=== PATIENT | female | born 1940 | race Caucasian/White ===

== ENCOUNTER → 2023-08-20 06:21 | Outpatient (REF) | payer MEDICARE, OTHER, SELFPAY | LOC: MRI 06:21 | PROVIDERS: ATTENDING PHYSICIAN Physician Assistant Surgical; FAMILY PHYSICIAN Family Medicine | DX: M25.551 Pain in right hip (principal); M79.604 Pain in right leg | CPT/HCPCS: 73718; 73721 ==

== ENCOUNTER → 2023-08-24 08:42 | Outpatient (REF) | payer MEDICARE, OTHER, SELFPAY | LOC: RAD 08:42 | PROVIDERS: ATTENDING PHYSICIAN Internal Medicine; FAMILY PHYSICIAN Family Medicine | DX: I73.9 Peripheral vascular disease, unspecified (principal) | CPT/HCPCS: 93922; 93925 ==

== ENCOUNTER 2023-08-31 07:43 | Emergency (ER) | payer MEDICARE, OTHER, SELFPAY ==
[2023-08-31] VITALS (10 sets, daily range): BP systolic 118–166; BP diastolic 51–98; PULSE 67; O2SAT 93; BMI 31.4
[2023-08-31] MEDS: ZOFRAN 4 MG IV (08:42)
[2023-08-31] MEDS: DILAUDID 0.5 MG IV ×2 (08:43→11:42)
[2023-08-31 08:57] LABS: % Basophils 0.5 % (0-2); % Eosinophils 1.4 % (0-6); % Immature Granulocytes 0.5 % (0-0.5); % Lymphocytes 22.1 % (20.5-51.1); % Monocytes 7.3 % (1.7-9.3); % Neutrophils 68.2 % (42.2-75.2); Absolute Basophils 0.1 10^3/uL (0-0.2); Absolute Eosinophils 0.1 10^3/uL (0-0.7); Absolute Immature Granulocytes 0.1 10^3/uL (0-0.05); Absolute Lymphocytes 2.2 10^3/uL (1.2-3.4); Absolute Monocytes 0.7 10^3/uL (0.1-0.6); Absolute Neutrophils 6.9 10^3/uL (1.4-6.5); Hematocrit 42.9 % (37.0-47.0); Hemoglobin 14.5 g/dL (12.0-16.0); Mean Corp Hgb Conc. 33.8 g/dL (33.0-37.0); Mean Corpuscular Hgb 29.6 pg (27.0-31.0); Mean Corpuscular Volume 87.6 fL (81.0-99.0); Mean Platelet Volume 10.2 fL (7.4-10.4); Nucleated Red Blood Cells % 0 %; Platelet Count 231 10^3/uL (130-400); Red Cell Dist. Width 13.7 % (11.5-14.5); White Blood Cell Count 10.1 10^3/uL (4.8-10.8)
[2023-08-31 09:14] LABS: Erythrocyte Sed Rate 2 mm/hour (0-20)
[2023-08-31 09:26] LABS: ALT (SGPT) 16 U/L (0-35); AST (SGOT) 20 U/L (14-36); Albumin 3.5 g/dl (3.5-5.0); Alkaline Phosphatase 68 U/L (38-126); Blood Urea Nitrogen 24 mg/dl (7-17); Calcium 9.8 mg/dl (8.4-10.2); Carbon Dioxide 25 mmol/L (22-30); Chloride 101 mmol/L (98-107); Estimated Creatinine Clearance 29 ml/min; Glucose 210 mg/dl (70-99); Potassium 3.9 mmol/L (3.5-5.1); Sodium 133 mmol/L (135-145); Total Bilirubin 0.8 mg/dl (0.2-1.3); Total Protein 5.9 g/dl (6.3-8.2); eGFR 34.58
[2023-08-31 11:16] LABS: Urine Albumin Negative (Neg - Trace); Urine Bilirubin Negative (Negative); Urine Character Clear (Clear); Urine Color Yellow; Urine Glucose Trace (Negative); Urine Ketone Trace (Negative); Urine Leukocyte 1+ (Negative); Urine Nitrite Negative (Negative); Urine Occult Blood Negative (Negative); Urine Urobilinogen Negative (Neg - 1+)
[2023-08-31 11:27] LABS: Urine Red Blood Cell 0-2 /HPF (0-2); Urine White Cell 0-2 /HPF (0-5)
[2023-08-31] MEDS: TORADOL 15 MG IV (11:38)
--- NOTE | 2023-08-31 14:26 | ED.GENMED ---
History of Present Illness
General
Chief Complaint: Back Pain
Source: patient and records
Exam Limitations: none
Time Seen by Provider: 08/31/23 07:51
Nursing documentation reviewed up to this point in time: agreed with
Travel History
Have you had any contact with someone who has COVID-19?: No
Do you have any symptoms of coronavirus? Fever > 100 degrees, chills, cough, shortness of breath, sore throat, loss of taste or smell, muscle aches, or headache?: No
History of Present Illness
History of Present Illness:
Patient is a 83-year-old female presents to the emergency department complaining of right hip and leg pain has been chronic but worse over the past 2 to 3 days and today had difficulty weightbearing on the right lower extremity. Patient denies any
recent illnesses or injuries. Patient denies numbness or paresthesias. Patient states she has pain around the back also. Patient had a recent MRI of the hip and upper extremity which did show significant tear of the gluteus minimus on the right
but otherwise was unremarkable. Patient had mild tendinitis. That was on August 20. Patient her left hip replaced in the past.
Past History
Past History
ED Past Medical History: Arrthythmia, HTN, Hypercholesterolemia, NIDDM, Hypothyroidism and Other (Rheumatic Heart Disease, temporal arteritis, diabetes, aortic stenosis, ocular myasthenia gravis)
ED Past Surgical History: Cardiac, Gynecological (Tubal ligation) and Tonsilectomy
Social History
Tobacco: Non-smoker
Alcohol: Occasional
Drug: None
Personal:
Living: with family
Employment: Retired
Family History
Family History: Other (Reviewed and non-contributory)
Review of Systems
Review of Systems
All Other Systems: ROS reviewed and negative except as documented in HPI and ROS
Constitutional: Reports no symptoms
ABD/GI: Reports no symptoms
: Reports no symptoms
Musculoskeletal: Reports joint pain and back pain
Skin: Reports no symptoms
Neurological: Reports no symptoms
Hematologic/Lymphatic: Reports no symptoms
Phy Exam
Physical Exam
Physical Exam:
Physical Exam
General: moderate. Distress, alert and appropriate, well nourished, well hydrated
HENT: Normocephalic, supple with no lymphadenopathy, no thyromegaly
Eyes: Clear sclera, conjuctiva without injection
Heart: Regular rhythm and rate. No S3, S4. No murmur.
Lungs: No respiratory distress, no stridor, lung sounds clear and equal bilaterally
Abdomen: Soft, nontender, no organomegaly, BS good
Neuro: Alert and oriented x 3, CN II - XII intact, no motor focality, no cerebellar dysfunction, sensory intact
Skin: no rash
Psychiatric: well kept. interactive and cooperative
Extremities: No edema, cyanosis. Tenderness along the diffuse right hip including abductors and abductors and posteriorly. Good and equal peripheral pulses.
Musculoskeletal: As stated above. No lumbar spine tenderness.
Course
Orders/Labs/Results
Orders:
Orders
08/31/23 08:29
HYDROmorphone [Dilaudid] 0.5 mg IV NOW STA
Ondansetron Injectable [Zofran] 4 mg IV NOW STA
08/31/23 08:47
Complete Blood Count/With Diff Urgent
Comprehensive Metabolic Panel Urgent
Sed Rate [Erythrocyte Sed Rate] Urgent
08/31/23 10:55
Physical Therapy Consult [Pt Eval And Treat] Urgent
Activity Level: Ambulate
08/31/23 11:09
Urinalysis Reflex To Culture Urgent
Date Specimen was Collected: 08/31/23
Time Specimen was Collected: 11:04
Urine Microscopic Reflex Cult Urgent
Urine Culture Urgent
IMAN Source: U
Specimen Description:
Date Specimen was Collected: 08/31/23
Time Specimen was Collected: 11:04
08/31/23 11:32
HYDROmorphone [Dilaudid] 0.5 mg IV NOW STA
Ketorolac [Toradol] 15 mg IV NOW STA
Abnormal Lab Results
08/31/23 08/31/23
08:47 11:09
Abs Immat Gran (auto) 0.1 H 10^3/uL
(0-0.05)
Absolute Neuts (auto) 6.9 H 10^3/uL
(1.4-6.5)
Absolute Monos (auto) 0.7 H 10^3/uL
(0.1-0.6)
Sodium 133 L mmol/L
(135-145)
BUN 24 H mg/dl
(7-17)
Creatinine 1.5 H mg/dL
(0.6-1.0)
Glucose 210 H mg/dl
(70-99)
Total Protein 5.9 L g/dl
(6.3-8.2)
Urine Ketones Trace A
(Negative)
Leukocyte Esterase Rfl 1+ A
(Negative)
Urine Glucose Trace A
(Negative)
08/31/23 08:47
08/31/23 08:47
Vital Signs
Initial and Last Documented VS:
Initial Vital Signs
Temp Pulse Resp BP Pulse Ox
98.2 F 81 16 166/98 98
08/31/23 07:45 08/31/23 07:45 08/31/23 07:45 08/31/23 07:45 08/31/23 07:45
Last Documented Vital Signs
Temp Pulse Resp BP Pulse Ox
98.2 F 81 16 144/78 92
08/31/23 07:45 08/31/23 07:45 08/31/23 07:45 08/31/23 12:18 08/31/23 12:06
*Radiology
Radiology exam reviewed: other (na)
*Pulse Oximetry
Patient hypoxic: no
*EKG
Interpreted by ED Provider?: NA
*Front Desk Agent Interpretation
Rate: Front Desk Agent- N/A
*Critical Care Note
Total Time (30-74mins, 75-104mins- exclusive of procedures): Not Applicable
Update Note
Update Note:
Discussed with patient's orthopedist. Had physical therapy evaluate the patient patient has good range of motion and strength. Patient has no signs of any hip pathology with range of motion and movement. Initially it felt that patient was having
adductor issues. Does not appear to be secondary to her gluteus minimus issues. Treat the patient with pain medication. Refer the patient to orthopedics. Will try short course of the anti-inflammatories but patient has some renal insufficiency
as well as diabetes. Patient cannot have steroids at this time. Patient will be discharged and referred to orthopedics and physical therapy.
ED Attending Note
-
Portions of this chart may have been created with voice recognition software.� Occasional wrong word or��sound alike� substitutions may have occurred due to the inherent limitations of voice recognition software.
Discharge Plan
Departure
Patient Disposition: Home (Routine Discharge)
Date of Disposition: 08/31/23
Time of Disposition: 14:42
Patient with high blood pressure during this ER visit?: Yes
Condition: Fair
Covid-19: Not Applicable
Discharge Problem:
Hip pain, right, Adductor tendinitis of right hip, Right hip tendinitis
Instructions: Hip Pain (DC), Tendinopathy (DC), BLOOD PRESSURE
Prescriptions:
New
oxycodone 5 mg tablet
5 mg PO Q4H PRN (Reason: Pain) Qty: 20 0RF
ketorolac 10 mg tablet
10 mg PO QID PRN (Reason: pain) 5 Days Qty: 20 0RF
No Action
albuterol sulfate 2.5 MG/3 ML solution for nebulization
2.5 mg inhalation R Q4HPRN PRN (Reason: sob)
Prolia 60 MG/ML syringe
60 mg SC [id number]
rosuvastatin 5 mg tablet
10 mg PO HS
Levemir U-100 Insulin 100 unit/mL Solution
3 unit SC HS
Patient Comments:
also adjusts doses based on blood sugar
Trulicity 0.75 mg/0.5 mL pen injector
0.75 mg SC WEEKLY
Patient Comments:
Mondays
insulin aspart U-100 [Novolog FlexPen U-100 Insulin] 300 UNITS/3 ML insulin pen
0 units SC AC
aspirin 81 mg Tablet,Delayed Release (Dr/Ec)
81 mg PO DAILY
magnesium oxide 500 MG tablet
500 mg PO QPM Qty: 30 0RF
cholecalciferol (vitamin D3) 2,000 UNITS tablet
2,000 unit PO DAILY Qty: 30 0RF
Tocilizumab
80 mg SC .EVERY OTHER WK Qty: 0 0RF
polyethylene glycol 3350 [Miralax] 17 gram Powder In Packet
17 g PO DAILY
Colace 50 mg Capsule
50 mg PO HS
lidocaine [Aspercreme (lidocaine)] 1 PATCH adhesive patch,medicated
2 patch topical DAILY PRN (Reason: Pain)
gabapentin 400 MG capsule
300 mg PO BID
levothyroxine 75 MCG tablet
75 mcg PO DAILY
prednisone 1 MG tablet
5 mg PO DAILY
furosemide 20 MG tablet
20 mg PO DAILY PRN (Reason: swelling)
metoprolol succinate 12.5 MG tablet extended release 24 hr
25 mg PO HS
cyanocobalamin (vitamin B-12) [Vitamin B-12] 1,000 mcg Tablet
1,000 mcg PO DAILY
cyclobenzaprine [Flexeril] 10 mg Tablet
10 mg PO HS PRN (Reason: pain)
amlodipine 2.5 mg tablet
2.5 mg PO DAILY Qty: 30 0RF
acetaminophen [Tylenol Extra Strength] 500 MG tablet
1,000 mg PO TID@0700,1300,2000 PRN (Reason: pain) Qty: 100 0RF
albuterol sulfate 1 PUFF HFA aerosol inhaler
2 puff inhalation R Q4HPRN PRN (Reason: sob) Qty: 1 0RF
High Potency Probiotic 1 CAP capsule
2 cap PO DAILY Qty: 60 0RF
omeprazole 40 MG capsule,delayed release(DR/EC)
40 mg PO DAILY Qty: 30 0RF
Referrals:
Russ Manzo Jr., DO [Family Provider] - Follow up in 5-7 days
Seymour Bermudez MD [Active] - Call in 1-3 days for appt
Activity Restrictions/Additional Instructions:
Once pain has settled down somewhat follow with physical therapy.
Interventions
Interventions:
*Risk Screen - Suicide Last Done: 08/31/23 07:45
*General Assessment Last Done: 08/31/23 07:54
*Neglect/Abuse Screening Last Done: 08/31/23 07:54
ED- Fall Risk Assessment Last Done: 08/31/23 08:16
*ED COVID-19 Vaccine History Last Done: 08/31/23 07:45
ED-Musculoskeletal Assessment Last Done: 08/31/23 07:54
== END 2023-08-31 15:12 | disposition home or self-care (01) ==
LOC: EMR 07:43
PROVIDERS: EMERGENCY PHYSICIAN Emergency Medicine; FAMILY PHYSICIAN Family Medicine
DX: M25.551 Pain in right hip (principal); M76.9 Unspecified enthesopathy, lower limb, excluding foot; I10 Essential (primary) hypertension; N28.9 Disorder of kidney and ureter, unspecified; E11.9 Type 2 diabetes mellitus without complications
CPT/HCPCS: 99284; 96374; 96375 ×2; 96376; 80053; 81003; 81015; 85025; 85652; 87086

== ENCOUNTER 2023-09-05 08:52 | Inpatient (IN) | payer MEDICARE, OTHER, SELFPAY ==
[2023-09-01 16:36] VITALS: BP 125/58
[2023-09-01 18:07] VITALS: BMI 33.5
--- NOTE | 2023-09-01 19:42 | ED.GENMED ---
History of Present Illness
General
Chief Complaint: Back Pain
Source: patient
Exam Limitations: none
Time Seen by Provider: 09/01/23 19:22
Nursing documentation reviewed up to this point in time: agreed with
Travel History
Have you had any contact with someone who has COVID-19?: No
Do you have any symptoms of coronavirus? Fever > 100 degrees, chills, cough, shortness of breath, sore throat, loss of taste or smell, muscle aches, or headache?: No
History of Present Illness
History of Present Illness:
83-year-old female presents to the emergency department complaining of low back pain, and right leg pain to her knee.
Past History
Past History
ED Past Medical History: Arrthythmia, HTN, Hypercholesterolemia, NIDDM, Hypothyroidism and Other (Rheumatic Heart Disease, temporal arteritis, diabetes, aortic stenosis, ocular myasthenia gravis)
ED Past Surgical History: Cardiac, Gynecological (Tubal ligation) and Tonsilectomy
Social History
Tobacco: Non-smoker
Alcohol: Occasional
Drug: None
Personal:
Living: with family
Employment: Retired
Family History
Family History: Other (Reviewed and non-contributory)
Review of Systems
Review of Systems
Allergies reviewed?: Yes
All Other Systems: Not applicable
Constitutional: Reports no symptoms
EENT: Reports no symptoms
Respiratory: Reports no symptoms
Cardiac: Reports no symptoms
ABD/GI: Reports no symptoms
: Reports no symptoms
Musculoskeletal: Reports back pain and other (Right thigh pain)
Skin: Reports no symptoms
Neurological: Reports no symptoms
Endocrine: Reports no symptoms
Hematologic/Lymphatic: Reports no symptoms
Psychiatric: Reports no symptoms
Phy Exam
Physical Exam
Physical Exam:
Physical Exam
General: appears uncomfortable, afebrile
Neck: supple. no meningeal signs. normal posterior pharynx
Heart: s1/s2 regular rate and rhythm, no murmur. equal radial
pulses.
HEENT: Pupils equal round reactive to light, EOMI
Lungs: no acute respiratory distress. clear bilaterally
Abdomen: normal bowel sounds. not tender. no CVAT
Neuro: alert and oriented. no focal neurological deficits cranial nerves II through XII intact
Skin: no rash
Psychiatric: well kept. interactive and cooperative
Extremities: no edema. no calf tenderness. negative homans. good distal pulses, ;unable to ambulate due to pain
Course
Orders/Labs/Results
Orders:
Orders
09/01/23 19:38
IV Insert/Care/Rem.- Treatment PRN
US Periph Venous LOWER Ext RT Urgent
Comment:
Reason For Exam: RLE pain past several days
09/01/23 19:41
HYDROmorphone [Dilaudid] 0.5 mg IV NOW STA
Ondansetron Injectable [Zofran] 4 mg IV NOW STA
09/01/23 20:12
Complete Blood Count/With Diff Urgent
Comprehensive Metabolic Panel Urgent
09/01/23 22:37
Admit/Transfer Patient As Directed
Co-Sign Provider:
Level of Care: Observation services
Assign to:: Medical/Surgical
Physician / Group: Davi
Diagnosis: RLE Pain / Ambulatory Dysfunction
09/01/23 22:41
Code Status As Directed
Resuscitation Status: Full Code
Abnormal Lab Results
09/01/23
20:12
WBC 12.8 H 10^3/uL
(4.8-10.8)
Abs Immat Gran (auto) 0.1 H 10^3/uL
(0-0.05)
Absolute Neuts (auto) 10.8 H 10^3/uL
(1.4-6.5)
Absolute Lymphs (auto) 1.1 L 10^3/uL
(1.2-3.4)
Absolute Monos (auto) 0.7 H 10^3/uL
(0.1-0.6)
Neutrophils % 84.5 H %
(42.2-75.2)
Lymphocytes % 8.6 L %
(20.5-51.1)
Sodium 134 L mmol/L
(135-145)
BUN 33 H mg/dl
(7-17)
Creatinine 1.7 H mg/dL
(0.6-1.0)
Glucose 216 H mg/dl
(70-99)
Total Protein 6.0 L g/dl
(6.3-8.2)
09/01/23 20:12
09/01/23 20:12
Vital Signs
Initial and Last Documented VS:
Initial Vital Signs
Temp Pulse Resp BP Pulse Ox
98.5 F 78 18 125/58 98
09/01/23 16:36 09/01/23 16:36 09/01/23 16:36 09/01/23 16:36 09/01/23 16:36
Last Documented Vital Signs
Temp Pulse Resp BP Pulse Ox
98.5 F 78 18 125/58 98
09/01/23 16:36 09/01/23 16:36 09/01/23 16:36 09/01/23 16:36 09/01/23 16:36
MDM/Problems Addressed
Differential Diagnosis Includes:
Cauda equina, sciatica, DVT
MDM/Problems Addressed:
83-year-old female with amatory dysfunction, right-sided sciatica, chronic renal insufficiency, tear of right gluteus medius. Patient is unsafe to go home due to ambulatory dysfunction. Admit to hospitalist.
Chronic conditions affecting care: Neurological disorder and Kidney disease
Acute Exacerbation and/or Progression of Chronic Illness: Neurological disorder and Kidney disease
*Radiology
Radiology exam reviewed: radiology read reviewed (Ultrasound right lower extremity no DVT, MRI right lower extremity and right hip show right gluteus medius tear, small right knee effusion)
*Pulse Oximetry
Patient hypoxic: no
*EKG
Interpreted by ED Provider?: NA
*Senior Game Designer Interpretation
Rate: Senior Game Designer- N/A
*Critical Care Note
Total Time (30-74mins, 75-104mins- exclusive of procedures): Not Applicable
Data Reviewed
Review of Other/Old Records Reveals: Radiology Studies (MRI right lower extremity gluteus medius tear)
Source: previous radiology exam
Patient Management
Social determinants of health affecting care: Living situation and Strong social support
Discussion with other providers: Hospitalist
Escalation/DeEscalation of care consider admission/obs:
Admit indicated
ED Attending Note
-
Portions of this chart may have been created with voice recognition software.� Occasional wrong word or��sound alike� substitutions may have occurred due to the inherent limitations of voice recognition software.
Discharge Plan
Departure
Patient Disposition: Admit
Date of Disposition: 09/01/23
Time of Disposition: 21:53
Admit to: Med/Surg
Presentation/result/management discussed w/ accepting MD/DO: Hospitalist
Patient with high blood pressure during this ER visit?: Yes
Condition: Fair
Discharge Problem:
Sciatica, Ambulatory dysfunction, Tear of right gluteus medius tendon, Chronic kidney disease (CKD), Diabetic neuropathy
Interventions
Interventions:
*Risk Screen - Suicide Last Done: 09/01/23 16:36
*General Assessment Last Done: 09/01/23 16:36
*Neglect/Abuse Screening Last Done: 09/01/23 16:36
ED- Fall Risk Assessment Last Done: 09/01/23 18:07
*ED COVID-19 Vaccine History Last Done: 09/01/23 16:36
ED-Musculoskeletal Assessment Last Done: 09/01/23 18:07
[2023-09-01] MEDS: ZOFRAN 4 MG IV (20:07)
[2023-09-01] MEDS: DILAUDID 0.5 MG IV (20:07)
[2023-09-01 20:21] LABS: % Basophils 0.5 % (0-2); % Eosinophils 0.4 % (0-6); % Immature Granulocytes 0.5 % (0-0.5); % Lymphocytes 8.6 % (20.5-51.1); % Monocytes 5.5 % (1.7-9.3); % Neutrophils 84.5 % (42.2-75.2); Absolute Basophils 0.1 10^3/uL (0-0.2); Absolute Eosinophils 0.1 10^3/uL (0-0.7); Absolute Immature Granulocytes 0.1 10^3/uL (0-0.05); Absolute Lymphocytes 1.1 10^3/uL (1.2-3.4); Absolute Monocytes 0.7 10^3/uL (0.1-0.6); Absolute Neutrophils 10.8 10^3/uL (1.4-6.5); Hematocrit 43.2 % (37.0-47.0); Hemoglobin 14.4 g/dL (12.0-16.0); Mean Corp Hgb Conc. 33.3 g/dL (33.0-37.0); Mean Corpuscular Hgb 29.8 pg (27.0-31.0); Mean Corpuscular Volume 89.4 fL (81.0-99.0); Mean Platelet Volume 9.2 fL (7.4-10.4); Nucleated Red Blood Cells % 0 %; Platelet Count 239 10^3/uL (130-400); Red Blood Cell Count 4.83 10^6/uL (4.20-5.40); Red Cell Dist. Width 13.7 % (11.5-14.5); White Blood Cell Count 12.8 10^3/uL (4.8-10.8)
[2023-09-01 20:41] LABS: ALT (SGPT) 21 U/L (0-35); AST (SGOT) 30 U/L (14-36); Albumin 3.7 g/dl (3.5-5.0); Alkaline Phosphatase 58 U/L (38-126); Blood Urea Nitrogen 33 mg/dl (7-17); Calcium 10.1 mg/dl (8.4-10.2); Carbon Dioxide 26 mmol/L (22-30); Chloride 100 mmol/L (98-107); Estimated Creatinine Clearance 24 ml/min; Glucose 216 mg/dl (70-99); Potassium 4.3 mmol/L (3.5-5.1); Sodium 134 mmol/L (135-145); Total Bilirubin 0.6 mg/dl (0.2-1.3); eGFR 29.76
--- NOTE | 2023-09-01 22:44 | HPS.HSE ---
Family Physician
-
Family Physician: Russ Manzo Jr.
Chief Complaint
-
RLE Pain, Ambulatory Dysfunction
History of Present Illness
Patient is an 83y F with PMH significant for GCA, DDD and DM with neuropathy who presents to ED complaining of RLE pain x several days. Patient states that she has had pain in the RLE from the hip to the knee for a few weeks now with no apparent
fall, injury or trauma. She states that the pain was more severe over the past 3 days or so. Today, she stood to use the bathroom and had severe pain / was completely unable to bear weight on the RLE or ambulate.
Patient underwent outpatient MRI of the R hip on 08/20/23 which showed labrum tear and high-grade gluteus minimus tear. She was seen in the ED here on 08/31 for worsening pain and prescribed oxycodone. She had follow-up scheduled with ortho
tomorrow, but returned to the ED this evening with increased pain and inability to ambulate.
Patient notes that her underwent shoulder surgery a few weeks ago and - as such - she has been doing more activity around the house than usual and likely lifting heavier things than she is used to.
Her is not able to assist her much given his limitations post-surgery.
In the ED, patient describes pain in the R groin radiating along the medial thigh and additional pain from the low back radiating down the lateral thigh. Pain is much more severe when standing / bearing weight.
Medical History
Past Medical History
Past Medical History: Reports Other
Additional Past Medical History:
DM-II with Peripheral Neuropathy
Hypertension
Hypothyroidism
Giant Cell Arteritis / Polymyalgia Rheumatica
Ocular Myasthenia
Allergic Asthma
GERD / Hiatal Hernia
Rheumatic Heart Disease
Iron Deficiency
B-12 Deficiency
CKD III
Chronic HFpEF
Prior CVA
DDD
Past Surgical History: Reports Other
Additional Past Surgical History:
Left KUSUM
Tubal Ligation
T&A
Lumpectomy x 2 (benign)
Cataracts
TAVR
Ptosis Repair
LESI (multiple)
MILD Procedure
Social History
Tobacco: Non-smoker
Alcohol: Occasional
Drug: None
Family History
Family History: Not pertinent
Allergies / Home Medications
Allergies reflects when Allergies were last updated in [facility].
Home Medications with original date entered in [facility]
Allergy/Medication List:
Allergies
Allergy/AdvReac Type Severity Reaction Status Date / Time
atorvastatin calcium Allergy weak Verified 09/01/23 16:38
[From Lipitor]
celecoxib [From Celebrex] Allergy Nausea / Verified 09/01/23 16:38
Vomiting
duloxetine [From Cymbalta] Allergy stomach Verified 09/01/23 16:38
issues
Penicillins Allergy Hives-childhood/tolerated Verified 09/01/23 16:38
ceftriaxone,
cefepime,
cefazolin
pollen extracts Allergy runny nose Verified 09/01/23 16:38
- seasonal
pyridostigmine bromide Allergy violent Verified 09/01/23 16:38
[From Mestinon] vomiting
Sulfa (Sulfonamide Allergy swelling Verified 09/01/23 16:38
Antibiotics) around
mouth
Home Medications
albuterol sulfate 2.5 mg/3 mL (0.083 %) solution for nebulization 2.5 mg inhalation R Q4HPRN PRN sob 04/14/16
denosumab 60 mg/mL subcutaneous syringe (Prolia) 60 mg SC [id number] Osteoporosis 11/11/21
Lactobac no.2-Bifidobac no.1-S. thermo 112.5 billion cell capsule (High Potency Probiotic) 2 cap PO DAILY #60 caps 11/23/21
albuterol sulfate 90 mcg/actuation aerosol inhaler 2 puff inhalation R Q4HPRN PRN sob ##1 11/23/21
omeprazole 40 mg capsule,delayed release 40 mg PO DAILY stomach #30 caps 11/23/21
aspirin 81 mg tablet,delayed release 81 mg PO DAILY Blood clot prevention/tx 06/01/22
insulin aspart U-100 100 unit/mL (3 mL) subcutaneous pen (Novolog FlexPen U-100 Insulin aspart) 0 sliding scale dose SC AC Diabetes 06/01/22
insulin detemir U-100 100 unit/mL subcutaneous solution (Levemir U-100 Insulin) 0 unit SC .SLIDING SCALE HS Diabetes 06/01/22
cholecalciferol (vitamin D3) 50 mcg (2,000 unit) tablet 2,000 unit PO DAILY suppliment #30 tabs 06/02/22
furosemide 20 mg tablet 20 mg PO DAILY PRN swelling 05/09/23
levothyroxine 75 mcg tablet 75 mcg PO DAILY hypothyroid 05/09/23
lidocaine 4 % topical patch (Aspercreme (lidocaine)) 2 patch topical DAILY PRN Pain 05/09/23
polyethylene glycol 3350 17 gram oral powder packet (Miralax) 17 g PO DAILY PRN constipation 05/09/23
cyanocobalamin (vitamin B-12) 1,000 mcg tablet (Vitamin B-12) 1,000 mcg PO DAILY 05/10/23
cyclobenzaprine 10 mg tablet 10 mg PO HS PRN moderate pain 05/11/23
acetaminophen 500 mg tablet (Tylenol Extra Strength) 1,000 mg PO TIDPRN PRN mild pain 09/01/23
amlodipine 5 mg tablet 5 mg PO DAILY 09/01/23
azelastine 137 mcg (0.1 %) nasal spray aerosol 1 spray intranasal BID 09/01/23
gabapentin 300 mg capsule 300 mg PO HS 09/01/23
magnesium oxide 500 mg PO Q48H Supplement 09/01/23
metoprolol succinate 50 mg tablet,extended release 24 hr 50 mg PO HS 09/01/23
oxycodone 5 mg tablet 5 mg PO Q4H PRN moderate to severe Pain 09/01/23
prednisone 5 mg tablet 5 mg PO DAILY 09/01/23
rosuvastatin 10 mg tablet 10 mg PO QPM 09/01/23
semaglutide 0.25 mg or 0.5 mg (2 mg/3 mL) subcutaneous pen injector (Ozempic) 0.5 mg SC MO 09/01/23
tocilizumab 162 mg/0.9 mL subcutaneous pen injector (Actemra ACTPen) 162 mg SC Q2W 09/01/23
Review of Systems
-
History Source: Patient
A 12 point ROS was completed and negative except as noted: Yes
Constitutional: Denies Fever, Fatigue or Chills
Respiratory: Denies Cough or Trouble Breathing
Cardiac: Denies Chest Pain or Palpitations
Abdomen/GI: Denies Abdominal Pain, Nausea, Vomiting or Diarrhea
: Denies Dysuria or Frequency
Musculoskeletal: Reports Joint Pain
Neurological: Denies Dizzy, Headache, Weakness or Numbness
Psych: Denies Depression or Anxiety
Physical Exam
Vital Signs
Vital Signs
Temp Pulse Resp BP Pulse Ox
98.5 F 78 18 125/58 98
09/01/23 16:36 09/01/23 16:36 09/01/23 16:36 09/01/23 16:36 09/01/23 16:36
Physical Exam
General: Other (83y F in no acute distress at rest.)
HEENT: Moist mucous membranes and PERRLA
Respiratory: Clear; No Wheezes, Rales or Rhonchi
Cardiac: S1/S2, Regular Rhythm and Murmur (II/ AC)
GI: Soft, Non Tender, Non Distended and Normal Bowel Sounds
Musculoskeletal: No Clubbing, No Cyanosis and Other (Trace edema at ankles bilaterally. Normal SLR on the R. Tenderness R iliac crest / lateral buttocks region on the R.)
Neuro: AO x 3 and Nonfocal/grossly intact
Laboratory Results
-
09/01/23 20:12
09/01/23 20:12
Laboratory Results
Total Bilirubin 0.6 mg/dl (0.2-1.3) 09/01/23 20:12
AST 30 U/L (14-36) 09/01/23 20:12
ALT 21 U/L (0-35) 09/01/23 20:12
Alkaline Phosphatase 58 U/L (38-126) 09/01/23 20:12
Impression/Plan
-
A/P: Patient is an 83y F with PMH significant for GCA / PMR, neuropathy and DDD who presents to ED complaining of worsening RLE pain and gait dysfunction.
RLE Pain
Ambulatory Dysfunction secondary to the above
R Labrum Tear
R Gluteus Minimus Tear (high-grade)
- Observe overnight for symptom control.
- Location(s) of pain seem to correlate with abnormalities noted on MRI / 2 separate mechanisms of pain.
- SLR is normal in the ED and patient notes that symptoms are not similar to 'sciatica' episodes she has had in the past.
- PT / OT evaluations.
- Ortho evaluation for imaging review and additional recommendations.
- Had prior left [facility] with Dr. Bermudez.
- Continue efforts at pain control and follow for clinical improvement.
GCA / PMR
- Stable. Continue current prednisone dosing without changes.
- Hold Actemra while inpatient - resume after discharge.
- Check ESR / CRP.
DM-II with Polyneuropathy and CKD
- Stable. Continue basal : bolus insulin regimen.
- Cover with SSI as needed.
- Update A1C.
- Continue gabapentin.
CKD III
- Stable. Renal function at / near known baseline.
- Follow for any changes.
Benign Hypertension
- Stable. Continue outpatient regimen with holding parameters.
Valvular Heart Disease
s/p TAVR
- Stable. Continue CV med regimen.
Asthma without Acute Exacerbation
- Stable. No active wheezing or complaints of dyspnea.
- Albuterol PRN if necessary.
DVT Prophylaxis: Subcut Heparin
Code Status: Full
[2023-09-02 00:03] VITALS: BP 162/88
[2023-09-02 00:15] VITALS: BMI 33.5
[2023-09-02 00:23] VITALS: BMI 30.8
[2023-09-02 00:26] LABS: Creatine Phosphokinase 65 U/L (30-135)
[2023-09-02 00:27] LABS: Erythrocyte Sed Rate 4 mm/hour (0-20)
[2023-09-02] MEDS: TOPROL XL 50 MG PO ×2 (00:46→22:44)
[2023-09-02] MEDS: NEURONTIN 300 MG PO ×2 (00:46→22:46)
[2023-09-02] MEDS: BENADRYL 25 MG PO (01:19)
--- NOTE | 2023-09-02 01:22 | PTCARENOTE ---
Patient c/o generalized itching in abdomen, head/nose, B/L arms s/p IV dilaudid in ED. MEDICAL VIDEOGRAPHER notified, order placed for x1 dose of PO 25mg Benadryl, see MAR for administration.
[2023-09-02 04:52] LABS: Hematocrit 41.7 % (37.0-47.0); Hemoglobin 13.9 g/dL (12.0-16.0); Mean Corp Hgb Conc. 33.3 g/dL (33.0-37.0); Mean Corpuscular Hgb 29.8 pg (27.0-31.0); Mean Corpuscular Volume 89.5 fL (81.0-99.0); Mean Platelet Volume 9.3 fL (7.4-10.4); Platelet Count 223 10^3/uL (130-400); Red Blood Cell Count 4.66 10^6/uL (4.20-5.40); Red Cell Dist. Width 13.7 % (11.5-14.5); White Blood Cell Count 10.8 10^3/uL (4.8-10.8)
[2023-09-02 05:23] LABS: Blood Urea Nitrogen 32 mg/dl (7-17); Calcium 9.7 mg/dl (8.4-10.2); Carbon Dioxide 26 mmol/L (22-30); Chloride 100 mmol/L (98-107); Estimated Creatinine Clearance 29 ml/min; Glucose 179 mg/dl (70-99); Potassium 4.3 mmol/L (3.5-5.1); Sodium 135 mmol/L (135-145); eGFR 34.58
[2023-09-02 06:00] VITALS: BMI 30.7
[2023-09-02 07:25] LABS: Glucose - Point of Care 163 mg/dl (70-99)
[2023-09-02 07:40] VITALS: BP 169/77
[2023-09-02] MEDS: ROXICODONE 5 MG PO ×2 (08:00→20:44)
[2023-09-02 09:27] LABS: Glycohemoglobin (HgbA1c) 9.1 % (4.0-5.6)
[2023-09-02] MEDS: NOVOLOG FLEXPEN-MODERATE RESISTANCE 1 UNITS SC (09:45)
[2023-09-02] MEDS: HEPARIN 5000 UNITS SC ×2 (09:46→20:45)
[2023-09-02] MEDS: DELTASONE 5 MG PO (09:47)
[2023-09-02] MEDS: TYLENOL 1000 MG PO ×3 (09:47→22:44)
[2023-09-02] MEDS: PROTONIX 40 MG PO (09:47)
[2023-09-02] MEDS: VITAMIN D3 (cholecalciferol) 50 MCG PO (09:47)
[2023-09-02] MEDS: ASPIR LOW (ENTERIC COATED) 81 MG PO (09:47)
[2023-09-02] MEDS: NORVASC 5 MG PO (09:48)
[2023-09-02] MEDS: VITAMIN B-12 1000 MCG PO (09:48)
[2023-09-02] MEDS: SYNTHROID 75 MCG PO (09:48)
--- NOTE | 2023-09-02 09:58 | CON.ORTHO ---
Consultation
-
Date/Time Consultation Requested: Sep 03
Date/Time Consultation Performed: Sep 03
Requesting Provider: Davi
Performing Provider: Sarah Bermudez
Reason for Consultation: Right hip/back pain
Consultation - Orthopedics
History
Dictation#[id number]
was asked to see this very pleasant 83-year-old white female, extremely well-known to our orthopedic specialty practice, who carries a PMH of Arrthythmia, HTN, Hypercholesterolemia, NIDDM, Hypothyroidism, Rheumatic Heart Disease, temporal
arteritis, aortic stenosis, ocular myasthenia gravis who presented through the [facility] last evening with ambulatory dysfunction and inability to weight-bear through her RLE. Of note she is known to Dr. Bermudez for left KUSUM back in 2021 for which
she recovered well from. She was experiencing similar pain in early July and was initially seen outpatient by my colleague, Castro Huerta. MRI scan of the right hip was requested and a follow-up on 24 August 2023 revealed some very mild
arthritic changes with some labral pathology and partial abductor tear. She was actually feeling better at that time after steroid injection. She does have a history of low back issues with sciatica symptoms (patient of Dr. Júnior Odonnell), and
believes that this might be the root cause of which she is currently dealing with. she currently denies any numbness or tingling down the leg, bowel or bladder incontinence, or saddle anesthesia. we have been requested in consultation due to her
ambulatory dysfunction. unfortunately her recently had shoulder surgery and she has been caring for him. He is not really capable of providing her help at home at the current time
Allergies / Home Medications
Allergy/AdvReac Type Severity Reaction Status Date / Time
atorvastatin calcium Allergy weak Verified 09/01/23 16:38
[From Lipitor]
celecoxib [From Celebrex] Allergy Nausea / Verified 09/01/23 16:38
Vomiting
duloxetine [From Cymbalta] Allergy stomach Verified 02/22/24 16:38
issues
Penicillins Allergy Hives-childhood/tolerated Verified 09/01/23 16:38
ceftriaxone,
cefepime,
cefazolin
pollen extracts Allergy runny nose Verified 09/01/23 16:38
- seasonal
pyridostigmine bromide Allergy violent Verified 09/01/23 16:38
[From Mestinon] vomiting
Sulfa (Sulfonamide Allergy swelling Verified 09/01/23 16:38
Antibiotics) around
mouth
Medication Instructions Recorded
albuterol sulfate 2.5 mg/3 mL 2.5 mg inhalation R Q4HPRN PRN sob 04/14/16
(0.083 %) solution for nebulization
denosumab 60 mg/mL subcutaneous 60 mg SC [id number] Osteoporosis 11/11/21
syringe (Prolia)
Lactobac no.2-Bifidobac no.1-S. 2 cap PO DAILY #60 caps 11/23/21
thermo 112.5 billion cell capsule
(High Potency Probiotic)
albuterol sulfate 90 mcg/actuation 2 puff inhalation R Q4HPRN PRN sob 11/23/21
aerosol inhaler ##1
omeprazole 40 mg capsule,delayed 40 mg PO DAILY stomach #30 caps 11/23/21
release
aspirin 81 mg tablet,delayed 81 mg PO DAILY Blood clot 06/01/22
release prevention/tx
insulin aspart U-100 100 unit/mL 0 sliding scale dose SC AC Diabetes 06/01/22
(3 mL) subcutaneous pen (Novolog
FlexPen U-100 Insulin aspart)
insulin detemir U-100 100 unit/mL 0 unit SC .SLIDING SCALE HS 06/01/22
subcutaneous solution (Levemir Diabetes
U-100 Insulin)
cholecalciferol (vitamin D3) 50 2,000 unit PO DAILY suppliment #30 06/02/22
mcg (2,000 unit) tablet tabs
furosemide 20 mg tablet 20 mg PO DAILY PRN swelling 05/09/23
levothyroxine 75 mcg tablet 75 mcg PO DAILY hypothyroid 05/09/23
lidocaine 4 % topical patch 2 patch topical DAILY PRN Pain 05/09/23
(Aspercreme (lidocaine))
polyethylene glycol 3350 17 gram 17 g PO DAILY PRN constipation 05/09/23
oral powder packet (Miralax)
cyanocobalamin (vitamin B-12) 1,000 mcg PO DAILY 05/10/23
1,000 mcg tablet (Vitamin B-12)
cyclobenzaprine 10 mg tablet 10 mg PO HS PRN moderate pain 05/11/23
acetaminophen 500 mg tablet 1,000 mg PO TIDPRN PRN mild pain 09/01/23
(Tylenol Extra Strength)
amlodipine 5 mg tablet 5 mg PO DAILY 09/01/23
azelastine 137 mcg (0.1 %) nasal 1 spray intranasal BID 09/01/23
spray aerosol
gabapentin 300 mg capsule 300 mg PO HS 09/01/23
magnesium oxide 500 mg PO Q48H Supplement 09/01/23
metoprolol succinate 50 mg 50 mg PO HS 09/01/23
tablet,extended release 24 hr
oxycodone 5 mg tablet 5 mg PO Q4H PRN moderate to severe 09/01/23
Pain
prednisone 5 mg tablet 5 mg PO DAILY 09/01/23
rosuvastatin 10 mg tablet 10 mg PO QPM 09/01/23
semaglutide 0.25 mg or 0.5 mg (2 0.5 mg SC MO 09/01/23
mg/3 mL) subcutaneous pen injector
(Ozempic)
tocilizumab 162 mg/0.9 mL 162 mg SC Q2W 09/01/23
subcutaneous pen injector (Actemra
ACTPen)
Vital Signs / Lab Results
Temp Pulse Resp BP Pulse Ox
97.9 F 72 18 169/77 95
09/02/23 07:40 09/02/23 07:40 09/02/23 07:40 09/02/23 07:40 09/02/23 07:40
09/02/23 04:30
09/02/23 04:30
Assessment / Plan
PE: Afeb. Currently in bed having breakfast. She has generalized but not focal pain in her RLE from the groin to to the knee. there is also some discomfort generally to palpation over her right sided low back. Slight discomfort over the hip
capsule and over the lateral hip at the trochanter. Hip ranging illicits little to no pain at all. SLR is equivocal. Calf is soft and nontender. Globally her ankle motion is intact. EHL is intact. Palpable pulses. Brisk capillary refill. DNVI
RLE
Diagnostics: Outpatient MRI right hip Sep 03 with mild OA, partial abductor tear, labral tear, troch bursitis
Doppler US RLE negative for DVT
Arterial study RLE WNL
Impression: Probable Lspine radiculopathy with a component of known mild right hip OA with partial abductor tear. Trochanteric bursitis. Incidentally noted acetabular labral tear
Plan: I had an at length bedside discussion with the patient regarding her RLE symptoms. She has known underlying arthritic disease of the right hip and some soft tissue (abductor, labral, bursal) pathology as well. she may also be dealing with
a concomitant lumbar radiculopathy, which is what it appears more like at this point. I discussed with Dr. Hutton. MRI scan of the Lsp could be considered, but also can be done outpatient. We will look to proceed with MRI shortly. Pain control
per Dr. Hutton. A short tapered course of prednisone could be helpful, however I will defer given her underlying NIDMM. if deemed safe PT/OT would be beneficial as well. Unfortunately her is recovering from shoulder surgery and cannot
provide the help she would need at home at this current time. we will appreciate [facility] input regarding post hospital care (SNF, Rehab, VNS). She does have a history with Dr. Odonnell. If this is indeed more of a Lsp issue we could suggest an eval by
spine. Will continue to follow and make more definitive recs after Lsp MRI
[2023-09-02 11:52] LABS: Glucose - Point of Care 205 mg/dl (70-99)
--- NOTE | 2023-09-02 11:54 | CM ---
Initial assessment completed with patient who lives in a 2 story home with B/B on and 07/12 bath on , 1 step to enter home. Prior to this past Tuesday, patient was independent in all ADL's, drove and occasionally used a SPC when out of the home.
In home DME is [facility], [facility], [facility] and [facility]. Only cane is in use. No services in home, No O2, no psychiatric history. Patient reports she had some R sided hip/leg pain around the recent holiday season but on 08/29/23 the pain worsened and it is now
excruciating where she cannot put weight on the R leg. recently had shoulder surgery and is not able to assist her fully. and daughter and friends are support system. Pharmacy is [facility] on [address] in [place] and PCP is Dr. Tsai
Anais. Discharge Plan of Care: TBD based on medical progression and therapy evaluation.
[2023-09-02] MEDS: ATIVAN 1 MG IV (12:05)
[2023-09-02] MEDS: NSS (PRESERVATIVE FREE) 0.5 ML IV (12:05)
[2023-09-02] MEDS: NOVOLOG FLEXPEN-MODERATE RESISTANCE 3 UNITS SC ×2 (12:06→19:03)
[2023-09-02 12:26] VITALS: BP 169/84
--- NOTE | 2023-09-02 12:53 | W.PN.HOSP.TC ---
Addendum entered and electronically signed by Taiwo Hutton MD 09/02/23 14:58:
Patient seen and examined
Discussed with resident
Discussed with orthopedics.
Presentation with severe right hip pain.
Recent MRI findings discussed with orthopedics.
Agree with benign hip exam. MRI findings mostly consistent with degenerative changes and less likely according to orthopedics causing current presentation
MRI of the lumbar spine with significant and progressive new disease at L2-L3 disc disease with right nerve impingement possibly causing referred pain to the right hip.
Will obtain neurosurgery/spine consult for comment. May require MADISON.
Original Note:
Today's Communication/Plan
-
- Continue pain management.
- Observe s/p palliative injections.
- If the pain and symptoms fail to respond, can consider spinal injections.
Assessment / Plan
Assessment / Plan
Assessment:
Margarita Bazan, 83 year-old female, presented to the emergency with low back pain and worsening right lower extremity pain on 09-01-23.�She has had pain in the RLE from the hip to the knee for a few weeks now with no apparent fall, injury or
trauma.�She states that the pain was more severe over the past 3 days or so.�Prior to coming to the ED, she reports that she stood to use the bathroom and had severe pain. She was completely unable to bear weight on the RLE or ambulate.
Of note, she underwent outpatient MRI of the right hip on 08-20-23 which showed labrum tear and high-grade gluteus minimus tear, and had a follow-up scheduled with orthopedic surgery later in the month.�She was also seen in the ED here on 08-31-23
for worsening pain and discharged with oxycodone. She returned to the ED a day later with increased pain and inability to ambulate.
Patient notes that her underwent shoulder surgery a few weeks ago and she has been doing more activity around the house than usual and likely lifting heavier things than she is used to. Her is not able to assist her much given his
limitations post-surgery. In the ED, patient described the pain in the right groin radiating along the medial thigh and additional pain from the low back radiating down the lateral thigh.�Pain is much more severe when standing / bearing weight.
Impression:
* Right lower extremity pain causing ambulatory dysfunction
* Tear of the anterior superior right acetabular labrum
* High-grade partial tear of the right gluteus minimus tendon
* Right greater trochanteric bursitis
* Mild right hip osteoarthritis
* Lumbar spine radiculopathy
Conditions known prior to admission:
* Giant cell arteritis
* Polymyalgia rheumatica
* Type II diabetes mellitus with polyneuropathy
* Chronic kidney disease, stage 3
* Chronic heart failure with preserved ejection fraction
* Essential hypertension
* Hypercholesterolemia
* Hypothyroidism
* Aortic stenosis
* Asthma without acute exacerbation
* Myasthenia gravis, ocular type
Plan:
Right lower extremity pain causing ambulatory dysfunction
- Patient has had progressive right lower extremity pain for the past few weeks.
- The pain is limited to the right groin area down to above the knee joint.
- She had an MRI on 08-20-23, which showed multiple right lower extremity pathologies, corresponding to the location of her pain.
- She has had a left KUSUM with Dr. Bermudez previously, and had a follow-up scheduled for this month for the right-sided pain.
- Came to the ED with worsening pain on 08-31-23, and was discharged on oxycodone.
- Came back the next day, on 09-01-23 with worsening pain and significant ambulatory dysfunction.
- Admitted on 09-01-23 for observation.
- Physical examination and review of system is consistent with known right lower extremity pathologies.
- Ultrasound was unremarkable, vitals have been stable and blood-work not significant.
- Likely multifactorial, in the setting of:
~ Tear of the anterior superior right acetabular labrum
~ High-grade partial tear of the right gluteus minimus tendon
~ Right partial abductor tear
~ Right greater trochanteric bursitis
~ Mild right hip osteoarthritis
- Continue efforts at pain control and follow for clinical improvement.
- Seen by orthopedic surgery; injected with 4cc .25% marcaine and 1cc 40mg triamcinolone without complication at the greater trochanter.
- PT/OT evaluation.
Lumbar spine radiculopathy
- Patient has also noted worsening low back pain.
- Denies numbness or tingling down the leg, bowel or bladder incontinence, or saddle anesthesia.
- MR lumber spine on 09-02-23 noted:
~ 'New moderate to large right foraminal disc superior disc extrusion at L2/L3 causing exiting right L2 nerve root impingement.'
~ 'New moderate-sized left subarticular disc herniation at L2/L3 with both superior and inferior extrusion of a portion of the herniated disc causing severe left lateral recess stenosis and descending left L3 nerve root impingement.'
~ 'Interval increase in moderate to severe central canal stenosis at L2/L3.'
~ Additional known findings of degenerative disc, central canal stenosis, foraminal narrowing, and chronic superior endplate fracture of L1.
- Could be contributing to the current presentation.
- If the pain and symptoms persist, can consider spinal injections.
- Orthopedic surgery input appreciated.
Giant cell arteritis/Polymyalgia rheumatica
�- Stable.�Continue current prednisone dosing without changes.
�- Hold Actemra while inpatient - resume after discharge.
�- ESR and CRP within normal limits on 09-01-23.
Type II diabetes mellitus with polyneuropathy
�- Stable.�Continue basal : bolus insulin regimen.
�- Cover with SSI as needed.
�- A1C 9.1 on 09-02-23.
�- Continue gabapentin.
Chronic kidney disease, stage 3
�- Stable.�Renal function at / near known baseline.
�- Follow for any changes.
Essential hypertension
�- Stable. Continue outpatient regimen with holding parameters.
Aortic stenosis
- s/p TAVR
�- Stable.�Continue CV med regimen.
Asthma without acute exacerbation
�- Stable.� No active wheezing or complaints of dyspnea.
�- Albuterol PRN if necessary.
DVT prophylaxis
- Heparin SC.
Code status
- Full.
Anticipated Discharge: > 48 hours
Subjective/Interval History
-
Date of Service: September 02, 2023
Objective Data
-
Labs:
Laboratory Results
09/02/23
04:30
WBC 10.8
Hgb 13.9
Hct 41.7
Plt Count 223
Sodium 135
Potassium 4.3
Chloride 100
Carbon Dioxide 26
BUN 32 H
Creatinine 1.5 H
Glucose 179 H
Calcium 9.7
Vital Signs:
Vital Signs
Temp Pulse Resp BP Pulse Ox
97.5 F 68 16 169/84 93
09/02/23 12:26 09/02/23 12:26 09/02/23 12:26 09/02/23 12:26 09/02/23 12:26
I&O
09/01/23 09/02/23 09/03/23
06:59 06:59 06:59
Intake Total 140 / 140
Output Total 250 / 250
Balance -110 / -110
Review of Systems
-
History Source: Patient
EENT: Reports No Symptoms Reported
Respiratory: Reports No Symptoms
Cardiac: Reports No Symptoms
Abdomen/GI: Reports No Symptoms
Genitourinary: Reports No Symptoms
Musculoskeletal: Reports Joint Pain, Muscle Pain and Muscle Stiffness
Skin: Reports No Symptoms
Neuro: Reports No Symptoms
Endocrine: Reports No Symptoms
Hematologic / Lymphatic: Reports No Symptoms
Allergy / Immunology: Reports No Symptoms
Psych: Reports Anxious
Physical Exam
-
General: Appears in Distress and Pain
HEENT: Normocephalic, Atraumatic, Moist Mucous Membranes and Anicteric
Respiratory: Clear to Auscultation
Cardiac: Regular Rhythm and S1/S2
GI: Soft, Nontender, Nondistended, Normal Bowel Sounds and No Hepatosplenomegaly
Genito-urinary: No Costovertebral Tender
Musculoskeletal: No Clubbing, No Cyanosis, No Edema and Other (generalized pain from right groin to to the knee; discomfort to palpation over her right sided low back; exam unremarkable from below the knee)
Skin: IV Access / Catheter Site
Neuro: Awake, Alert, Oriented and No Motor Deficits
Hematologic / Lymphatic: No Lymphadenopathy
Psych: Anxious
--- NOTE | 2023-09-02 14:25 | W.PN.UPDATE ---
Update Note
Progress Note Update
Agree with orthopedic PA note. Pt seen and examined. Spoke with Dr Bermudez today.
Pt has been seeing Dr Odonnell for Pain management regarding long standing spine issues.
R hip: Complete passive ROM of right hip without pain. negative log roll. no tenderness to palpation.
MRI right hip 08/20/13 Mild osteoarthrosis of the right hip.
2. Tear of the anterior superior right acetabular labrum with a small adjacent paralabral cyst.
3. High-grade partial tear of the right gluteus minimus tendon.
4. Mild right greater trochanteric bursitis.
5. Small right knee joint effusion.
MRI lumbar spine Shows new Disc herniations with nerve root impingement. L2-3. DDD multiple levels
Impression: Ambulatory dysfunction,acute intractable pain
Lumbar DDD and Acute l2-3 disc herniations with radiculopathy
Assymptomatic labral tear Right hip,right gluteus medius tear, mild greater trocanteric bursitis
Plan: Patients hip exam is benign.This would be treated with PT and outpatient cortisone injections. But she currently is assymptomatic in that joint. Likely, her ambulatory dysfunction is from her new disc herniations in the lumbar spine
Please consult Dr Odonnell or freight rate specialist exceptional needs teacher covering the hospital for evaluation
[2023-09-02 15:38] VITALS: BP 170/82
[2023-09-02 16:47] LABS: Glucose - Point of Care 228 mg/dl (70-99)
[2023-09-02 20:15] VITALS: BMI 30.7
[2023-09-02 21:13] LABS: Glucose - Point of Care 227 mg/dl (70-99)
[2023-09-02] MEDS: LEVEMIR 0.100000000000000006 UNITS SC (22:46)
[2023-09-02 23:05] VITALS: BP 160/75
[2023-09-02 23:10] VITALS: BP 160/75
[2023-09-03] MEDS: MORPHINE SULFATE 2 MG IV (04:07)
[2023-09-03 07:00] VITALS: BP 172/83
[2023-09-03 08:35] LABS: Glucose - Point of Care 176 mg/dl (70-99)
[2023-09-03] MEDS: NOVOLOG FLEXPEN-MODERATE RESISTANCE 1 UNITS SC (08:48)
[2023-09-03] MEDS: TYLENOL 1000 MG PO ×3 (08:48→21:27)
[2023-09-03] MEDS: PROTONIX 40 MG PO (08:49)
[2023-09-03] MEDS: ASPIR LOW (ENTERIC COATED) 81 MG PO (08:49)
[2023-09-03] MEDS: NORVASC 5 MG PO (08:50)
[2023-09-03] MEDS: ROXICODONE 5 MG PO ×2 (08:51→13:36)
[2023-09-03] MEDS: SYNTHROID 75 MCG PO (08:52)
[2023-09-03] MEDS: DELTASONE 5 MG PO (08:52)
[2023-09-03] MEDS: HEPARIN 5000 UNITS SC ×2 (08:52→21:27)
[2023-09-03] MEDS: VITAMIN D3 (cholecalciferol) 50 MCG PO (08:52)
[2023-09-03] MEDS: VITAMIN B-12 1000 MCG PO (08:52)
[2023-09-03 09:20] VITALS: BP 143/70; PULSE 73
--- NOTE | 2023-09-03 09:21 | W.PN.HOSP.TC ---
Today's Communication/Plan
-
plan for neurosurgery consult today
Assessment / Plan
Assessment / Plan
Assessment:
Margartia Bazan, 83 year-old female, presented to the emergency with low back pain and worsening right lower extremity pain on 09-01-23.�She has had pain in the RLE from the hip to the knee for a few weeks now with no apparent fall, injury or
trauma.�She states that the pain was more severe over the past 3 days or so.�Prior to coming to the ED, she reports that she stood to use the bathroom and had severe pain. She was completely unable to bear weight on the RLE or ambulate.
Of note, she underwent outpatient MRI of the right hip on 08-20-23 which showed labrum tear and high-grade gluteus minimus tear, and had a follow-up scheduled with orthopedic surgery later in the month.�She was also seen in the ED here on 08-31-23
for worsening pain and discharged with oxycodone. She returned to the ED a day later with increased pain and inability to ambulate.
Patient notes that her underwent shoulder surgery a few weeks ago and she has been doing more activity around the house than usual and likely lifting heavier things than she is used to. Her is not able to assist her much given his
limitations post-surgery. In the ED, patient described the pain in the right groin radiating along the medial thigh and additional pain from the low back radiating down the lateral thigh.�Pain is much more severe when standing / bearing weight.
Impression:
* Right lower extremity pain causing ambulatory dysfunction
* Tear of the anterior superior right acetabular labrum
* High-grade partial tear of the right gluteus minimus tendon
* Right greater trochanteric bursitis
* Mild right hip osteoarthritis
* Lumbar spine radiculopathy
Conditions known prior to admission:
* Giant cell arteritis
* Polymyalgia rheumatica
* Type II diabetes mellitus with polyneuropathy
* Chronic kidney disease, stage 3
* Chronic heart failure with preserved ejection fraction
* Essential hypertension
* Hypercholesterolemia
* Hypothyroidism
* Aortic stenosis
* Asthma without acute exacerbation
* Myasthenia gravis, ocular type
Plan:
Right lower extremity pain causing ambulatory dysfunction
- Patient has had progressive right lower extremity pain for the past few weeks.
- She had an MRI on 08-20-23, which showed multiple right lower extremity pathologies, corresponding to the location of her pain.
- She has had a left KUSUM with Dr. Bermudez previously, and had a follow-up scheduled for this month for the right-sided pain.
- Came to the ED with worsening pain on 08-31-23, and was discharged on oxycodone.
- Came back the next day, on 09-01-23 with worsening pain and significant ambulatory dysfunction.
- Admitted on 09-01-23 for observation.
- Physical examination and review of system is consistent with known right lower extremity pathologies.
- Ultrasound was unremarkable, vitals have been stable and blood-work not significant.
- Likely multifactorial, in the setting of:
~ Tear of the anterior superior right acetabular labrum
~ High-grade partial tear of the right gluteus minimus tendon
~ Right partial abductor tear
~ Right greater trochanteric bursitis
~ Mild right hip osteoarthritis
-lumbar radiculopathy also contributing - see below
- Seen by orthopedic surgery; injected with 4cc .25% marcaine and 1cc 40mg triamcinolone without complication at the greater trochanter.
- PT/OT evaluation.
Lumbar spine radiculopathy
- Patient has also noted worsening low back pain.
- Denies numbness or tingling down the leg, bowel or bladder incontinence, or saddle anesthesia.
- MR lumber spine on 09-02-23 noted:
~ 'New moderate to large right foraminal disc superior disc extrusion at L2/L3 causing exiting right L2 nerve root impingement.'
~ 'New moderate-sized left subarticular disc herniation at L2/L3 with both superior and inferior extrusion of a portion of the herniated disc causing severe left lateral recess stenosis and descending left L3 nerve root impingement.'
~ 'Interval increase in moderate to severe central canal stenosis at L2/L3.'
~ Additional known findings of degenerative disc, central canal stenosis, foraminal narrowing, and chronic superior endplate fracture of L1.
- Could be contributing to the current presentation.
- Neurosurgery consulted and texted this AM
Giant cell arteritis/Polymyalgia rheumatica
�- Stable.�Continue current prednisone dosing without changes.
�- Hold Actemra while inpatient - resume after discharge.
�- ESR and CRP within normal limits on 09-01-23.
Type II diabetes mellitus with polyneuropathy
�- Stable.�Continue basal : bolus insulin regimen.
�- Cover with SSI as needed.
�- A1C 9.1 on 09-02-23.
�- Continue gabapentin.
Chronic kidney disease, stage 3
�- Stable.�Renal function at / near known baseline.
�- Follow for any changes.
Essential hypertension
�- Stable. Continue outpatient regimen with holding parameters.
Aortic stenosis
- s/p TAVR
�- Stable.�Continue CV med regimen.
Asthma without acute exacerbation
�- Stable.� No active wheezing or complaints of dyspnea.
�- Albuterol PRN if necessary.
Constipation
-make miralax daily not PRN
DVT prophylaxis
- Heparin SC.
Code status
- Full.
Anticipated Discharge: 24 - 48 hours
Subjective/Interval History
-
Date of Service: September 03, 2023
continuing to have pain right hip and groin
Objective Data
-
Vital Signs:
Vital Signs
Temp Pulse Resp BP Pulse Ox
98.1 F 76 18 172/73 94
09/03/23 07:00 09/03/23 07:00 09/03/23 07:00 09/03/23 08:50 09/03/23 07:00
I&O
09/02/23 09/03/23 09/04/23
06:59 06:59 06:59
Intake Total 860 / 860
Output Total 1730 / 1730
Balance -870 / -870
Review of Systems
-
History Source: Patient
All other systems: Reviewed and negative
Physical Exam
-
General: Appears in Distress and Pain
HEENT: Normocephalic, Atraumatic, Moist Mucous Membranes and Anicteric
Respiratory: Clear to Auscultation
Cardiac: Regular Rhythm and S1/S2
GI: Soft, Nontender, Nondistended, Normal Bowel Sounds and No Hepatosplenomegaly
Genito-urinary: No Costovertebral Tender
Musculoskeletal: No Clubbing, No Cyanosis, No Edema and Other (generalized pain from right groin to to the knee; discomfort to palpation over her right sided low back; exam unremarkable from below the knee)
Skin: IV Access / Catheter Site
Neuro: Awake, Alert, Oriented and No Motor Deficits
Hematologic / Lymphatic: No Lymphadenopathy
Psych: Anxious
Data Reviewed
-
Diagnostic Radiology: Report Reviewed by me
Labs: Labs Reviewed by me
[2023-09-03] MEDS: LIDOCAINE 4% PATCH 1 PATCH TOPICAL (09:32)
[2023-09-03 09:35] VITALS: BP 146/70; PULSE 73
[2023-09-03] MEDS: NOVOLOG FLEXPEN-MODERATE RESISTANCE 3 UNITS SC (12:05)
[2023-09-03 12:07] LABS: Glucose - Point of Care 214 mg/dl (70-99)
[2023-09-03] MEDS: BENADRYL 25 MG PO (14:54)
[2023-09-03 15:00] VITALS: BP 118/61
[2023-09-03 16:52] LABS: Glucose - Point of Care 254 mg/dl (70-99)
--- NOTE | 2023-09-03 16:56 | CON.NS ---
Chief Complaint
-
Back and right leg pain
History of Present Illness
This is a very pleasant 83-year-old female who presented to the ER on 222 with several days complaints of right lower extremity pain. Her pain radiates in an L2-3 distribution. She rates her pain 10 out of 10 with movement. She notes weakness
involving her right leg. States that she has immediate pain in the right leg upon standing or sitting at the edge of the bed. Denies any left leg symptoms. MRIs been completed which shows a right-sided L2-3 disc herniation. Past medical history
significant for giant cell arteritis on steroid treatment. As well as diabetes.
Review of Systems
-
10 point review of systems was completed and negative except as stated in the HPI
Medication and Allergies
Home Medications
Home Medications
Medication Instructions Recorded
albuterol sulfate 2.5 mg/3 mL 2.5 mg inhalation R Q4HPRN PRN sob 04/14/16
(0.083 %) solution for nebulization
denosumab 60 mg/mL subcutaneous 60 mg SC [id number] Osteoporosis 11/11/21
syringe (Prolia)
Lactobac no.2-Bifidobac no.1-S. 2 cap PO DAILY #60 caps 11/23/21
thermo 112.5 billion cell capsule
(High Potency Probiotic)
albuterol sulfate 90 mcg/actuation 2 puff inhalation R Q4HPRN PRN sob 11/23/21
aerosol inhaler ##1
omeprazole 40 mg capsule,delayed 40 mg PO DAILY stomach #30 caps 11/23/21
release
aspirin 81 mg tablet,delayed 81 mg PO DAILY Blood clot 06/01/22
release prevention/tx
insulin aspart U-100 100 unit/mL 0 sliding scale dose SC AC Diabetes 06/01/22
(3 mL) subcutaneous pen (Novolog
FlexPen U-100 Insulin aspart)
insulin detemir U-100 100 unit/mL 0 unit SC .SLIDING SCALE HS 06/01/22
subcutaneous solution (Levemir Diabetes
U-100 Insulin)
cholecalciferol (vitamin D3) 50 2,000 unit PO DAILY suppliment #30 06/02/22
mcg (2,000 unit) tablet tabs
furosemide 20 mg tablet 20 mg PO DAILY PRN swelling 05/09/23
levothyroxine 75 mcg tablet 75 mcg PO DAILY hypothyroid 05/09/23
lidocaine 4 % topical patch 2 patch topical DAILY PRN Pain 05/09/23
(Aspercreme (lidocaine))
polyethylene glycol 3350 17 gram 17 g PO DAILY PRN constipation 05/09/23
oral powder packet (Miralax)
cyanocobalamin (vitamin B-12) 1,000 mcg PO DAILY 05/10/23
1,000 mcg tablet (Vitamin B-12)
cyclobenzaprine 10 mg tablet 10 mg PO HS PRN moderate pain 05/11/23
acetaminophen 500 mg tablet 1,000 mg PO TIDPRN PRN mild pain 09/01/23
(Tylenol Extra Strength)
amlodipine 5 mg tablet 5 mg PO DAILY 09/01/23
azelastine 137 mcg (0.1 %) nasal 1 spray intranasal BID 09/01/23
spray aerosol
gabapentin 300 mg capsule 300 mg PO HS 09/01/23
magnesium oxide 500 mg PO Q48H Supplement 09/01/23
metoprolol succinate 50 mg 50 mg PO HS 09/01/23
tablet,extended release 24 hr
oxycodone 5 mg tablet 5 mg PO Q4H PRN moderate to severe 09/01/23
Pain
prednisone 5 mg tablet 5 mg PO DAILY 09/01/23
rosuvastatin 10 mg tablet 10 mg PO QPM 09/01/23
semaglutide 0.25 mg or 0.5 mg (2 0.5 mg SC MO 09/01/23
mg/3 mL) subcutaneous pen injector
(Ozempic)
tocilizumab 162 mg/0.9 mL 162 mg SC Q2W 09/01/23
subcutaneous pen injector (Actemra
ACTPen)
Allergies
Allergies
Allergy/AdvReac Type Severity Reaction Status Date / Time
atorvastatin calcium Allergy weak Verified 09/01/23 16:38
[From Lipitor]
celecoxib [From Celebrex] Allergy Nausea / Verified 09/01/23 16:38
Vomiting
duloxetine [From Cymbalta] Allergy stomach Verified 09/01/23 16:38
issues
Penicillins Allergy Hives-childhood/tolerated Verified 09/01/23 16:38
ceftriaxone,
cefepime,
cefazolin
pollen extracts Allergy runny nose Verified 09/01/23 16:38
- seasonal
pyridostigmine bromide Allergy violent Verified 09/01/23 16:38
[From Mestinon] vomiting
Sulfa (Sulfonamide Allergy swelling Verified 09/01/23 16:38
Antibiotics) around
mouth
Physical Exam
-
Exam:
Physical examination is
awake alert oriented x 3
Cranials 2 through 12 grossly intact
Respirations unlabored
Peripheral pulses palpable
Motor strength testing reveals 5 out of 5 upper and lower extremity strength except for her right hip flexor which shows 4+ out of 5 weakness.
Sensation is grossly intact
DTRs are 1/4 at all stations
No Ashley's, no clonus
MRI lumbar spine reveals multilevel lumbar spondylosis. At the L2-3 level there is a right-sided disc herniation with cranial migration and severe compression of the exiting L2 nerve root
Problems
-
Problem Status Onset Code
Sciatica M54.30
Ambulatory dysfunction R26.2
Tear of right gluteus medius tendon S76.011A
Chronic kidney disease (CKD) N18.9
Diabetic neuropathy E11.40
Assessment / Plan
-
Lumbar radiculopathy
1. At this point in time recommend conservative therapies for her pain. We discussed surgical invention which would consist of a right-sided L2-3 microdiscectomy. She wishes to attempt pain control with oral pain medications, steroids, gabapentin
or Lyrica.
2. Can consider consult to Dr. Odonnell to see if he will do an inpatient epidural steroid injection
3. Will follow for improvement, decide whether or not she requires surgery during this admission.
[2023-09-03] MEDS: NOVOLOG FLEXPEN-MODERATE RESISTANCE 5 UNITS SC (17:00)
[2023-09-03] MEDS: NEURONTIN 300 MG PO ×2 (17:26→21:27)
[2023-09-03] MEDS: TOPROL XL 50 MG PO (21:27)
[2023-09-03] MEDS: LEVEMIR 0.100000000000000006 UNITS SC (21:28)
[2023-09-03 21:51] LABS: Glucose - Point of Care 240 mg/dl (70-99)
[2023-09-03 23:40] VITALS: BP 139/69
[2023-09-04 00:20] VITALS: BP 139/69
[2023-09-04] MEDS: MORPHINE SULFATE 2 MG IV (01:32)
[2023-09-04 03:40] VITALS: BMI 33.5
[2023-09-04 07:11] VITALS: BP 149/74
[2023-09-04 07:39] LABS: Glucose - Point of Care 165 mg/dl (70-99)
[2023-09-04] MEDS: NOVOLOG FLEXPEN-MODERATE RESISTANCE 1 UNITS SC ×2 (08:50→11:57)
[2023-09-04] MEDS: LIDOCAINE 4% PATCH 1 PATCH TOPICAL ×2 (08:51→11:55)
[2023-09-04] MEDS: MIRALAX 17 GRAMS PO (08:51)
[2023-09-04] MEDS: HEPARIN 5000 UNITS SC (08:51)
[2023-09-04] MEDS: VITAMIN D3 (cholecalciferol) 50 MCG PO (08:52)
[2023-09-04] MEDS: SYNTHROID 75 MCG PO (08:52)
[2023-09-04] MEDS: VITAMIN B-12 1000 MCG PO (08:52)
[2023-09-04] MEDS: TYLENOL 1000 MG PO ×3 (08:52→22:21)
[2023-09-04] MEDS: PROTONIX 40 MG PO (08:53)
[2023-09-04] MEDS: NEURONTIN 300 MG PO ×3 (08:53→22:21)
[2023-09-04] MEDS: DELTASONE 5 MG PO (08:53)
[2023-09-04] MEDS: ASPIR LOW (ENTERIC COATED) 81 MG PO (08:53)
[2023-09-04] MEDS: NORVASC 5 MG PO (08:53)
[2023-09-04] MEDS: ROXICODONE 5 MG PO ×3 (09:20→19:56)
--- NOTE | 2023-09-04 09:21 | W.PN.HOSP.TC ---
Today's Communication/Plan
-
plan for IR guided MADISON tomorrow
Assessment / Plan
Assessment / Plan
Assessment:
Margarita Bazan, 83 year-old female, presented to the emergency with low back pain and worsening right lower extremity pain on 09-01-23.�She has had pain in the RLE from the hip to the knee for a few weeks now with no apparent fall, injury or
trauma.�She states that the pain was more severe over the past 3 days or so.�Prior to coming to the ED, she reports that she stood to use the bathroom and had severe pain. She was completely unable to bear weight on the RLE or ambulate.
Of note, she underwent outpatient MRI of the right hip on 08-20-23 which showed labrum tear and high-grade gluteus minimus tear, and had a follow-up scheduled with orthopedic surgery later in the month.�She was also seen in the ED here on 08-31-23
for worsening pain and discharged with oxycodone. She returned to the ED a day later with increased pain and inability to ambulate.
Patient notes that her underwent shoulder surgery a few weeks ago and she has been doing more activity around the house than usual and likely lifting heavier things than she is used to. Her is not able to assist her much given his
limitations post-surgery. In the ED, patient described the pain in the right groin radiating along the medial thigh and additional pain from the low back radiating down the lateral thigh.�Pain is much more severe when standing / bearing weight.
Impression:
* Right lower extremity pain causing ambulatory dysfunction
* Tear of the anterior superior right acetabular labrum
* High-grade partial tear of the right gluteus minimus tendon
* Right greater trochanteric bursitis
* Mild right hip osteoarthritis
* Lumbar spine radiculopathy
Conditions known prior to admission:
* Giant cell arteritis
* Polymyalgia rheumatica
* Type II diabetes mellitus with polyneuropathy
* Chronic kidney disease, stage 3
* Chronic heart failure with preserved ejection fraction
* Essential hypertension
* Hypercholesterolemia
* Hypothyroidism
* Aortic stenosis
* Asthma without acute exacerbation
* Myasthenia gravis, ocular type
Plan:
Right lower extremity pain causing ambulatory dysfunction
- Patient has had progressive right lower extremity pain for the past few weeks.
- She had an MRI on 08-20-23, which showed multiple right lower extremity pathologies, corresponding to the location of her pain.
- She has had a left KUSUM with Dr. Bermudez previously, and had a follow-up scheduled for this month for the right-sided pain.
- Came to the ED with worsening pain on 08-31-23, and was discharged on oxycodone.
- Came back the next day, on 09-01-23 with worsening pain and significant ambulatory dysfunction.
- Admitted on 09-01-23 for observation.
- Physical examination and review of system is consistent with known right lower extremity pathologies.
- Ultrasound was unremarkable, vitals have been stable and blood-work not significant.
- Likely multifactorial, in the setting of:
~ Tear of the anterior superior right acetabular labrum
~ High-grade partial tear of the right gluteus minimus tendon
~ Right partial abductor tear
~ Right greater trochanteric bursitis
~ Mild right hip osteoarthritis
- lumbar radiculopathy likely main contributor --> see below
- Seen by orthopedic surgery; injected with 4cc .25% marcaine and 1cc 40mg triamcinolone without complication at the greater trochanter.
- PT/OT evaluation.
Lumbar spine radiculopathy
- Patient has also noted worsening low back pain.
- Denies numbness or tingling down the leg, bowel or bladder incontinence, or saddle anesthesia.
- MR lumber spine on 09-02-23 noted:
~ 'New moderate to large right foraminal disc superior disc extrusion at L2/L3 causing exiting right L2 nerve root impingement.'
~ 'New moderate-sized left subarticular disc herniation at L2/L3 with both superior and inferior extrusion of a portion of the herniated disc causing severe left lateral recess stenosis and descending left L3 nerve root impingement.'
~ 'Interval increase in moderate to severe central canal stenosis at L2/L3.'
~ Additional known findings of degenerative disc, central canal stenosis, foraminal narrowing, and chronic superior endplate fracture of L1.
- Could be contributing to the current presentation.
- Neurosurgery consult appreciate
- IR consulted for MADISON on 09/05
- continue increased frequency gabapentin
- lidocaine patches ordered
Giant cell arteritis/Polymyalgia rheumatica
�- Stable.�Continue current prednisone dosing without changes.
�- Hold Actemra while inpatient - resume after discharge.
�- ESR and CRP within normal limits on 09-01-23.
Type II diabetes mellitus with polyneuropathy
�- Stable.�Continue basal : bolus insulin regimen.
�- Cover with SSI as needed.
�- A1C 9.1 on 09-02-23.
�- Continue gabapentin.
Chronic kidney disease, stage 3
�- Stable.�Renal function at / near known baseline.
�- Follow for any changes.
Essential hypertension
�- Stable. Continue outpatient regimen with holding parameters.
Aortic stenosis
- s/p TAVR
�- Stable.�Continue CV med regimen.
Asthma without acute exacerbation
�- Stable.� No active wheezing or complaints of dyspnea.
�- Albuterol PRN if necessary.
Constipation
-make miralax daily not PRN
-add colace
-dulcolax supp PRN
DVT prophylaxis
- Heparin SC.
Code status
- Full.
Anticipated Discharge: 24 - 48 hours
Subjective/Interval History
-
Date of Service: September 04, 2023
she continues to have pain
she slept better last night
still no BM
Objective Data
-
Vital Signs:
Vital Signs
Temp Pulse Resp BP Pulse Ox
98.1 F 75 18 149/74 93
09/04/23 07:11 09/04/23 07:11 09/04/23 07:11 09/04/23 07:11 09/04/23 07:11
I&O
09/03/23 09/04/23 09/05/23
06:59 06:59 06:59
Intake Total 860 / 860 840 / 840
Output Total 1730 / 1730 250 / 250
Balance -870 / -870 590 / 590
Review of Systems
-
History Source: Patient
All other systems: Reviewed and negative
Physical Exam
-
General: Appears in Distress and Pain
HEENT: Normocephalic, Atraumatic, Moist Mucous Membranes and Anicteric
Respiratory: Clear to Auscultation
Cardiac: Regular Rhythm and S1/S2
GI: Soft, Nontender, Nondistended, Normal Bowel Sounds and No Hepatosplenomegaly
Genito-urinary: No Costovertebral Tender
Musculoskeletal: No Clubbing, No Cyanosis, No Edema and Other (generalized pain from right groin to to the knee; discomfort to palpation over her right sided low back; exam unremarkable from below the knee)
Skin: IV Access / Catheter Site
Neuro: Awake, Alert, Oriented and No Motor Deficits
Hematologic / Lymphatic: No Lymphadenopathy
Psych: Anxious
Data Reviewed
-
Diagnostic Radiology: Report Reviewed by me
Labs: Labs Reviewed by me
[2023-09-04 11:41] LABS: Glucose - Point of Care 195 mg/dl (70-99)
[2023-09-04] MEDS: COLACE 100 MG PO ×2 (11:55→19:57)
[2023-09-04 12:03] VITALS: BP 131/65
--- NOTE | 2023-09-04 14:25 | W.PN.UPDATE ---
Addendum entered and electronically signed by Loni Kwko MD 09/04/23 14:37:
Aspirin on hold as well. Team to discuss with IR timing of procedure given patient got aspirin this morning.
Original Note:
Update Note
Progress Note Update
will hold hep subQ before MADISON
[2023-09-04 15:51] VITALS: BP 130/62
--- NOTE | 2023-09-04 16:13 | CM ---
IMM signed and placed on chart.
[2023-09-04 16:50] LABS: Glucose - Point of Care 249 mg/dl (70-99)
[2023-09-04] MEDS: NOVOLOG FLEXPEN-MODERATE RESISTANCE 3 UNITS SC (17:46)
[2023-09-04 21:43] LABS: Glucose - Point of Care 224 mg/dl (70-99)
[2023-09-04] MEDS: TOPROL XL 50 MG PO (22:21)
[2023-09-04] MEDS: LEVEMIR 0.100000000000000006 UNITS SC (22:21)
[2023-09-04 23:05] VITALS: BP 141/80
[2023-09-05] MEDS: ROXICODONE 5 MG PO ×4 (03:11→20:59)
[2023-09-05 05:17] LABS: Hematocrit 42.5 % (37.0-47.0); Hemoglobin 14.2 g/dL (12.0-16.0); INR 0.95; Mean Corp Hgb Conc. 33.4 g/dL (33.0-37.0); Mean Corpuscular Hgb 30.3 pg (27.0-31.0); Mean Corpuscular Volume 90.6 fL (81.0-99.0); Mean Platelet Volume 9.9 fL (7.4-10.4); PT 12.5 Sec (11.4-14.6); Platelet Count 227 10^3/uL (130-400); Red Blood Cell Count 4.69 10^6/uL (4.20-5.40); Red Cell Dist. Width 13.5 % (11.5-14.5); White Blood Cell Count 9.8 10^3/uL (4.8-10.8)
[2023-09-05 05:24] LABS: Blood Urea Nitrogen 29 mg/dl (7-17); Calcium 9.5 mg/dl (8.4-10.2); Carbon Dioxide 25 mmol/L (22-30); Chloride 104 mmol/L (98-107); Estimated Creatinine Clearance 30 ml/min; Glucose 186 mg/dl (70-99); Potassium 4.4 mmol/L (3.5-5.1); Sodium 133 mmol/L (135-145); eGFR 34.58
[2023-09-05 06:00] VITALS: BMI 33.9
[2023-09-05 07:36] VITALS: BP 152/77
[2023-09-05] MEDS: TYLENOL 1000 MG PO ×3 (07:40→21:58)
[2023-09-05] MEDS: VITAMIN B-12 1000 MCG PO (07:40)
[2023-09-05] MEDS: SYNTHROID 75 MCG PO (07:40)
[2023-09-05] MEDS: NORVASC 5 MG PO (07:40)
[2023-09-05] MEDS: DELTASONE 5 MG PO (07:41)
[2023-09-05] MEDS: PROTONIX 40 MG PO (07:41)
[2023-09-05] MEDS: NEURONTIN 300 MG PO ×3 (07:41→21:57)
[2023-09-05] MEDS: COLACE 100 MG PO ×2 (07:41→20:59)
[2023-09-05] MEDS: MIRALAX 17 GRAMS PO (07:41)
[2023-09-05] MEDS: LIDOCAINE 4% PATCH 1 PATCH TOPICAL ×2 (07:41)
[2023-09-05] MEDS: VITAMIN D3 (cholecalciferol) 50 MCG PO (07:41)
[2023-09-05] MEDS: NOVOLOG FLEXPEN-MODERATE RESISTANCE SC (07:44)
[2023-09-05 07:46] LABS: Glucose - Point of Care 147 mg/dl (70-99)
[2023-09-05 09:39] VITALS: BP 126/61
[2023-09-05 11:47] LABS: Glucose - Point of Care 260 mg/dl (70-99)
[2023-09-05] MEDS: NOVOLOG FLEXPEN-MODERATE RESISTANCE 5 UNITS SC (13:19)
--- NOTE | 2023-09-05 14:36 | W.PN.HOSP.TC ---
Addendum entered and electronically signed by Taiwo Hutton MD 09/05/23 15:01:
Patient seen and examined
Discussed with resident
Impression/plan:
Presentation with ambulatory dysfunction due to severe right thigh/inguinal pain
In review with orthopedics as well as imaging right hip MRI likely revealing degenerative changes.
Patient with persistent right thigh pain and MRI of the spine consistent with significant disc herniation to the right at L 2�3 likely causing referred pain to the right thigh.
Consideration of MADISON could be done only after 5 days aspirin been on hold (last dose on 09/04.
Add trial of IV corticosteroids Decadron 4 mg 3 times daily while holding maintenance prednisone dose.
Continue basal bolus protocol adjusting insulin regimen accordingly expecting hyperglycemia
Continue with Tylenol, gabapentin, oxycodone
Continue physical therapy.
Original Note:
Today's Communication/Plan
-
- Hold aspirin pending MADISON.
Assessment / Plan
Assessment / Plan
Assessment:
Margarita Bazan, 83 year-old female, presented to the emergency with low back pain and worsening right lower extremity pain on 09-01-23.�She has had pain in the RLE from the hip to the knee for a few weeks now with no apparent fall, injury or
trauma.�She states that the pain was more severe over the past 3 days or so.�Prior to coming to the ED, she reports that she stood to use the bathroom and had severe pain. She was completely unable to bear weight on the RLE or ambulate.
Of note, she underwent outpatient MRI of the right hip on 08-20-23 which showed labrum tear and high-grade gluteus minimus tear, and had a follow-up scheduled with orthopedic surgery later in the month.�She was also seen in the ED here on 08-31-23
for worsening pain and discharged with oxycodone. She returned to the ED a day later with increased pain and inability to ambulate.
Patient notes that her underwent shoulder surgery a few weeks ago and she has been doing more activity around the house than usual and likely lifting heavier things than she is used to. Her is not able to assist her much given his
limitations post-surgery. In the ED, patient described the pain in the right groin radiating along the medial thigh and additional pain from the low back radiating down the lateral thigh.�Pain is much more severe when standing / bearing weight.
Impression:
* Right lower extremity pain causing ambulatory dysfunction
* Tear of the anterior superior right acetabular labrum
* High-grade partial tear of the right gluteus minimus tendon
* Right greater trochanteric bursitis
* Mild right hip osteoarthritis
* Lumbar spine radiculopathy
Conditions known prior to admission:
* Giant cell arteritis
* Polymyalgia rheumatica
* Type II diabetes mellitus with polyneuropathy
* Chronic kidney disease, stage 3
* Chronic heart failure with preserved ejection fraction
* Essential hypertension
* Hypercholesterolemia
* Hypothyroidism
* Aortic stenosis
* Asthma without acute exacerbation
* Myasthenia gravis, ocular type
Plan:
Right lower extremity pain causing ambulatory dysfunction
- Patient has had progressive right lower extremity pain for the past few weeks.
- She had an MRI on 08-20-23, which showed multiple right lower extremity pathologies, corresponding to the location of her pain.
- She has had a left KUSUM with Dr. Bermudez previously, and had a follow-up scheduled for this month for the right-sided pain.
- Came to the ED with worsening pain on 08-31-23, and was discharged on oxycodone.
- Came back the next day, on 09-01-23 with worsening pain and significant ambulatory dysfunction.
- Admitted on 09-01-23 for observation.
- Physical examination and review of system is consistent with known right lower extremity pathologies.
- Ultrasound was unremarkable, vitals have been stable and blood-work not significant.
- Likely multifactorial, in the setting of:
~ Tear of the anterior superior right acetabular labrum
~ High-grade partial tear of the right gluteus minimus tendon
~ Right partial abductor tear
~ Right greater trochanteric bursitis
~ Mild right hip osteoarthritis
- lumbar radiculopathy likely contributing.
- Seen by orthopedic surgery; injected with 4cc .25% marcaine and 1cc 40mg triamcinolone without complication at the greater trochanter on 09-02-23.
- PT/OT evaluation.
- The pain is unchanged from the day of her admission, and she is unable to tolerate any movements/change in her position.
- Will see if this improves after the MADISON; can consider alternative interventions if the pain persists after that.
Lumbar spine radiculopathy
- Patient has also noted worsening low back pain.
- Denies numbness or tingling down the leg, bowel or bladder incontinence, or saddle anesthesia.
- MR lumber spine on 09-02-23 noted:
~ 'New moderate to large right foraminal disc superior disc extrusion at L2/L3 causing exiting right L2 nerve root impingement.'
~ 'New moderate-sized left subarticular disc herniation at L2/L3 with both superior and inferior extrusion of a portion of the herniated disc causing severe left lateral recess stenosis and descending left L3 nerve root impingement.'
~ 'Interval increase in moderate to severe central canal stenosis at L2/L3.'
~ Additional known findings of degenerative disc, central canal stenosis, foraminal narrowing, and chronic superior endplate fracture of L1.
- Could be contributing to the current presentation.
- Neurosurgery consult appreciate
- IR consulted for MADISON.
- continue increased frequency gabapentin
- lidocaine patches ordered
Giant cell arteritis/Polymyalgia rheumatica
�- Stable.�Continue current prednisone dosing without changes.
�- Hold Actemra while inpatient - resume after discharge.
�- ESR and CRP within normal limits on 09-01-23.
Type II diabetes mellitus with polyneuropathy
�- Stable.�Continue basal : bolus insulin regimen.
�- Cover with SSI as needed.
�- A1C 9.1 on 09-02-23.
�- Continue gabapentin.
Chronic kidney disease, stage 3
�- Stable.�Renal function at / near known baseline.
�- Follow for any changes.
Essential hypertension
�- Stable. Continue outpatient regimen with holding parameters.
Aortic stenosis
- s/p TAVR
�- Stable.�Continue CV med regimen.
Asthma without acute exacerbation
�- Stable.� No active wheezing or complaints of dyspnea.
�- Albuterol PRN if necessary.
Constipation
-make miralax daily not PRN
-add colace
-dulcolax supp PRN
DVT prophylaxis
- Heparin SC.
Code status
- Full.
Anticipated Discharge: > 48 hours
Subjective/Interval History
-
Date of Service: September 05, 2023
Objective Data
-
Labs:
Laboratory Results
09/05/23
04:24
WBC 9.8
Hgb 14.2
Hct 42.5
Plt Count 227
PT 12.5
INR 0.95
Sodium 133 L
Potassium 4.4
Chloride 104
Carbon Dioxide 25
BUN 29 H
Creatinine 1.5 H
Glucose 186 H
Calcium 9.5
Vital Signs:
Vital Signs
Temp Pulse Resp BP Pulse Ox
97.5 F 65 16 152/77 97
09/05/23 07:36 09/05/23 07:36 09/05/23 07:36 09/05/23 07:36 09/05/23 07:36
I&O
09/04/23 09/05/23 09/06/23
06:59 06:59 06:59
Intake Total 840 / 840 1380 / 1380
Output Total 250 / 250 1300 / 1300
Balance 590 / 590 80 / 80
Physical Exam
-
General: No Apparent Distress and Pain
HEENT: Normocephalic, Atraumatic, Moist Mucous Membranes and Anicteric
Respiratory: Clear to Auscultation
Cardiac: Regular Rhythm and S1/S2
GI: Soft, Nontender, Nondistended, Normal Bowel Sounds and No Hepatosplenomegaly
Genito-urinary: No Costovertebral Tender
Musculoskeletal: No Clubbing, No Cyanosis, No Edema and Other (generalized pain from right groin to to the knee; discomfort to palpation over her right sided low back; exam unremarkable from below the knee)
Neuro: Awake, Alert, Oriented and No Motor Deficits
Hematologic / Lymphatic: No Lymphadenopathy
Psych: Calm
[2023-09-05] MEDS: DECADRON 4 MG IV ×2 (15:07→21:59)
[2023-09-05 15:45] VITALS: BP 142/46
[2023-09-05] MEDS: NOVOLOG FLEXPEN-MODERATE RESISTANCE 7 UNITS SC (18:15)
[2023-09-05 18:17] LABS: Glucose - Point of Care 339 mg/dl (70-99)
[2023-09-05 21:44] LABS: Glucose - Point of Care 316 mg/dl (70-99)
[2023-09-05] MEDS: TOPROL XL 50 MG PO (21:57)
[2023-09-05] MEDS: LEVEMIR 0.100000000000000006 UNITS SC (21:58)
[2023-09-05] MEDS: NON-FORMULARY ITEM 1 UNIT NASAL (22:23)
[2023-09-05 23:35] VITALS: BP 137/67
[2023-09-06] MEDS: ROXICODONE 5 MG PO ×3 (04:47→15:39)
[2023-09-06 06:00] VITALS: BMI 31.2
[2023-09-06 07:24] LABS: Glucose - Point of Care 285 mg/dl (70-99)
[2023-09-06 07:37] VITALS: BP 134/66
[2023-09-06] MEDS: LIDOCAINE 4% PATCH 1 PATCH TOPICAL ×2 (08:32→08:33)
[2023-09-06] MEDS: MIRALAX 17 GRAMS PO (08:33)
[2023-09-06] MEDS: NEURONTIN 300 MG PO (08:34)
[2023-09-06] MEDS: SYNTHROID 75 MCG PO (08:34)
[2023-09-06] MEDS: DECADRON 4 MG IV ×3 (08:34→21:52)
[2023-09-06] MEDS: PROTONIX 40 MG PO (08:34)
[2023-09-06] MEDS: COLACE 100 MG PO ×2 (08:34→20:00)
[2023-09-06] MEDS: TYLENOL 1000 MG PO ×3 (08:34→21:47)
[2023-09-06] MEDS: NOVOLOG FLEXPEN-MODERATE RESISTANCE 5 UNITS SC (08:35)
[2023-09-06] MEDS: NORVASC 5 MG PO (08:36)
[2023-09-06] MEDS: NON-FORMULARY ITEM 1 UNIT NASAL ×2 (08:36→20:01)
[2023-09-06] MEDS: VITAMIN D3 (cholecalciferol) 50 MCG PO (08:36)
[2023-09-06] MEDS: NON-FORMULARY ITEM 1 UNIT BOTH EYES ×3 (08:36→20:03)
[2023-09-06] MEDS: VITAMIN B-12 1000 MCG PO (08:36)
--- NOTE | 2023-09-06 11:06 | CM ---
CM met with pt bedside- ADC >48 hours
SNF recommended by therapy
Pt in agreement if needed on dc- PAC provided
Will consideration choices
Pt is hopeful for better functional status after epidural injection and for return to home
CM will continue to follow for dc planning and follow therapy recommendations.
Pt has qualifying stay
Disposition- home with if progression with therapy vs SNF
[2023-09-06 11:53] LABS: Glucose - Point of Care 324 mg/dl (70-99)
[2023-09-06] MEDS: NOVOLOG FLEXPEN 4 UNITS SC ×2 (13:01→18:24)
[2023-09-06] MEDS: NOVOLOG FLEXPEN-HIGH RESISTANCE 10 UNITS SC (13:02)
--- NOTE | 2023-09-06 14:07 | W.PN.HOSP.TC ---
Addendum entered and electronically signed by Taiwo Hutton MD 09/06/23 14:54:
Patient seen and examined
Discussed with resident
Agree with assessment and plan
Impression/plan:
Severe right thigh pain and ambulatory dysfunction thought to be secondary to L2-L3 disc herniation
Right hip degenerative changes documented on recent MRI.
Eventually plan for MADISON to L-spine, required being off aspirin for 5 days through 09/08.
Initiated on systemic steroids with some relief of pain while at rest pending physical therapy evaluation with ambulation
Continue low-dose of oxycodone
IDDM with now steroid-induced hyperglycemia.
Adjust insulin dose with increase of Lantus, addition of Premeal short acting insulin increasing basal bolus protocol to high-dose
Original Note:
Today's Communication/Plan
-
- Continue PT/OT.
- Continue Decadron.
- Continue adjusted insulin.
Assessment / Plan
Assessment / Plan
Assessment:
Margarita Bazan, 83 year-old female, presented to the emergency with low back pain and worsening right lower extremity pain on 09-01-23.�She has had pain in the RLE from the hip to the knee for a few weeks now with no apparent fall, injury or
trauma.�She states that the pain was more severe over the past 3 days or so.�Prior to coming to the ED, she reports that she stood to use the bathroom and had severe pain. She was completely unable to bear weight on the RLE or ambulate.
Of note, she underwent outpatient MRI of the right hip on 08-20-23 which showed labrum tear and high-grade gluteus minimus tear, and had a follow-up scheduled with orthopedic surgery later in the month.�She was also seen in the ED here on 08-31-23
for worsening pain and discharged with oxycodone. She returned to the ED a day later with increased pain and inability to ambulate.
Patient notes that her underwent shoulder surgery a few weeks ago and she has been doing more activity around the house than usual and likely lifting heavier things than she is used to. Her is not able to assist her much given his
limitations post-surgery. In the ED, patient described the pain in the right groin radiating along the medial thigh and additional pain from the low back radiating down the lateral thigh.�Pain is much more severe when standing / bearing weight.
Impression:
* Right lower extremity pain causing ambulatory dysfunction
* Tear of the anterior superior right acetabular labrum
* High-grade partial tear of the right gluteus minimus tendon
* Right greater trochanteric bursitis
* Mild right hip osteoarthritis
* Lumbar spine radiculopathy
Conditions known prior to admission:
* Giant cell arteritis
* Polymyalgia rheumatica
* Type II diabetes mellitus with polyneuropathy
* Chronic kidney disease, stage 3
* Chronic heart failure with preserved ejection fraction
* Essential hypertension
* Hypercholesterolemia
* Hypothyroidism
* Aortic stenosis
* Asthma without acute exacerbation
* Myasthenia gravis, ocular type
Plan:
Right lower extremity pain causing ambulatory dysfunction
- Patient has had progressive right lower extremity pain for the past few weeks.
- She had an MRI on 08-20-23, which showed multiple right lower extremity pathologies, corresponding to the location of her pain.
- She has had a left KUSUM with Dr. Bermudez previously, and had a follow-up scheduled for this month for the right-sided pain.
- Came to the ED with worsening pain on 08-31-23, and was discharged on oxycodone.
- Came back the next day, on 09-01-23 with worsening pain and significant ambulatory dysfunction.
- Admitted on 09-01-23 for observation.
- Physical examination and review of system is consistent with known right lower extremity pathologies.
- Ultrasound was unremarkable, vitals have been stable and blood-work not significant.
- Likely multifactorial, in the setting of:
~ Tear of the anterior superior right acetabular labrum
~ High-grade partial tear of the right gluteus minimus tendon
~ Right partial abductor tear
~ Right greater trochanteric bursitis
~ Mild right hip osteoarthritis
- lumbar radiculopathy likely contributing.
- Seen by orthopedic surgery; injected with 4cc .25% marcaine and 1cc 40mg triamcinolone without complication at the greater trochanter on 09-02-23.
- PT/OT evaluation.
- The pain is unchanged from the day of her admission, and she is unable to tolerate any movements/change in her position.
- Will see if this improves after the MADISON; can consider alternative interventions if the pain persists after that.
- IV Decadron 4 mg 3 times daily while holding maintenance prednisone dose since 09-05-23.
- Improved slightly since; will monitor.
Lumbar spine radiculopathy
- Patient has also noted worsening low back pain.
- Denies numbness or tingling down the leg, bowel or bladder incontinence, or saddle anesthesia.
- MR lumber spine on 09-02-23 noted:
~ 'New moderate to large right foraminal disc superior disc extrusion at L2/L3 causing exiting right L2 nerve root impingement.'
~ 'New moderate-sized left subarticular disc herniation at L2/L3 with both superior and inferior extrusion of a portion of the herniated disc causing severe left lateral recess stenosis and descending left L3 nerve root impingement.'
~ 'Interval increase in moderate to severe central canal stenosis at L2/L3.'
~ Additional known findings of degenerative disc, central canal stenosis, foraminal narrowing, and chronic superior endplate fracture of L1.
- Could be contributing to the current presentation.
- Neurosurgery consult appreciate
- IR consulted for MADISON.
- Aspirin has been held since 09-04-23; will be held for 5 days and can get the
Giant cell arteritis/Polymyalgia rheumatica
�- Stable.�Continue current prednisone dosing without changes.
�- Hold Actemra while inpatient - resume after discharge.
�- ESR and CRP within normal limits on 09-01-23.
Type II diabetes mellitus with polyneuropathy
�- Cover with SSI as needed.
�- A1C 9.1 on 09-02-23.
�- Continue gabapentin.
- Continue basal bolus protocol adjusting insulin regimen accordingly expecting hyperglycemia.
Chronic kidney disease, stage 3
�- Stable.�Renal function at / near known baseline.
�- Follow for any changes.
Essential hypertension
�- Stable. Continue outpatient regimen with holding parameters.
Aortic stenosis
- s/p TAVR
�- Stable.�Continue CV med regimen.
Asthma without acute exacerbation
�- Stable.� No active wheezing or complaints of dyspnea.
�- Albuterol PRN if necessary.
Constipation
-make miralax daily not PRN
-add colace
-dulcolax supp PRN
DVT prophylaxis
- Heparin SC.
Code status
- Full.
Anticipated Discharge: > 48 hours
Subjective/Interval History
-
Date of Service: September 06, 2023
Objective Data
-
Vital Signs:
Vital Signs
Temp Pulse Resp BP Pulse Ox
98.0 F 68 16 134/66 95
09/06/23 07:37 09/06/23 07:37 09/06/23 07:37 09/06/23 08:36 09/06/23 07:37
I&O
09/05/23 09/06/23 09/07/23
06:59 06:59 06:59
Intake Total 1380 / 1380 1800 / 1800 480 / 480
Output Total 1300 / 1300 700 / 700 600 / 600
Balance 80 / 80 1100 / 1100 -120 / -120
Review of Systems
-
History Source: Patient
Constitutional: Reports No Symptoms
EENT: Reports No Symptoms Reported
Respiratory: Reports No Symptoms
Cardiac: Reports No Symptoms
Abdomen/GI: Reports No Symptoms
Musculoskeletal: Reports Muscle Pain
Skin: Reports No Symptoms
Neuro: Reports No Symptoms
Endocrine: Reports No Symptoms
Hematologic / Lymphatic: Reports No Symptoms
Allergy / Immunology: Reports No Symptoms
Physical Exam
-
General: No Apparent Distress and Comfortable
HEENT: Normocephalic, Atraumatic, Moist Mucous Membranes and Anicteric
Respiratory: Clear to Auscultation and Non Labored Respirations
Cardiac: Regular Rhythm and S1/S2
GI: Soft, Nontender, Nondistended and No Hepatosplenomegaly
Genito-urinary: No Costovertebral Tender
Musculoskeletal: No Clubbing, No Cyanosis and No Edema
Skin: Warm, Dry and IV Access / Catheter Site
Neuro: Awake, Alert, Oriented, No Motor Deficits and No Sensory Deficits
Hematologic / Lymphatic: No Lymphadenopathy
Psych: Calm
[2023-09-06 15:11] VITALS: BP 136/76; PULSE 76; O2SAT 96
[2023-09-06] MEDS: NEURONTIN 200 MG PO ×2 (15:38→21:53)
[2023-09-06 15:39] VITALS: BP 136/76; PULSE 76; O2SAT 95
[2023-09-06] MEDS: FLUSH (NSS) 2 FLUSH IV (15:40)
[2023-09-06 15:55] VITALS: BP 136/76
[2023-09-06 17:28] LABS: Glucose - Point of Care 435 mg/dl (70-99)
[2023-09-06 18:20] LABS: Glucose 479 mg/dl (70-99)
[2023-09-06] MEDS: NOVOLOG FLEXPEN-HIGH RESISTANCE 14 UNITS SC (18:24)
[2023-09-06] MEDS: TOPROL XL 50 MG PO (21:53)
[2023-09-06] MEDS: LEVEMIR 0.149999999999999994 UNITS SC (21:53)
[2023-09-06 21:59] LABS: Glucose - Point of Care 521 mg/dl (70-99)
[2023-09-06 22:09] VITALS: BP 147/70
--- NOTE | 2023-09-06 23:00 | PTCARENOTE ---
pt blood sugar reading RR high, stat glucose drawn= 521, [facility] notified and ordered 12 units novolog. insulin administered see SEP. will recheck blood sugar in 2 hours.
[2023-09-06 23:04] LABS: Glucose 521 mg/dl (70-99)
[2023-09-06 23:30] VITALS: BP 136/79
[2023-09-06] MEDS: NOVOLOG FLEXPEN 12 UNITS SC (23:38)
[2023-09-07 02:24] LABS: Glucose 457 mg/dl (70-99)
[2023-09-07] MEDS: NOVOLOG FLEXPEN 14 UNITS SC (02:50)
[2023-09-07 03:36] LABS: Blood Urea Nitrogen 44 mg/dl (7-17); Calcium 9.3 mg/dl (8.4-10.2); Carbon Dioxide 22 mmol/L (22-30); Chloride 98 mmol/L (98-107); Estimated Creatinine Clearance 31 ml/min; Potassium 4.6 mmol/L (3.5-5.1); Sodium 130 mmol/L (135-145); eGFR 37.56
[2023-09-07 06:00] VITALS: BMI 31.4
[2023-09-07 07:10] VITALS: BP 155/94
--- NOTE | 2023-09-07 07:12 | PTCARENOTE ---
0500 blood sugar recheck = 341, provider made aware.
[2023-09-07 07:14] LABS: Glucose - Point of Care 444 mg/dl (70-99)
[2023-09-07 07:14] LABS: Glucose - Point of Care 341 mg/dl (70-99)
[2023-09-07 07:53] LABS: Glucose - Point of Care 266 mg/dl (70-99)
[2023-09-07] MEDS: NOVOLOG FLEXPEN 4 UNITS SC (07:58)
[2023-09-07] MEDS: VITAMIN D3 (cholecalciferol) 50 MCG PO (07:59)
[2023-09-07] MEDS: NEURONTIN 200 MG PO ×3 (07:59→22:08)
[2023-09-07] MEDS: VITAMIN B-12 1000 MCG PO (07:59)
[2023-09-07] MEDS: NOVOLOG FLEXPEN-HIGH RESISTANCE 7 UNITS SC ×3 (07:59→17:51)
[2023-09-07] MEDS: COLACE 100 MG PO ×2 (08:00→21:00)
[2023-09-07] MEDS: DULCOLAX 10 MG RECTAL (08:00)
[2023-09-07] MEDS: TYLENOL 1000 MG PO ×3 (08:00→22:06)
[2023-09-07] MEDS: PROTONIX 40 MG PO (08:00)
[2023-09-07] MEDS: DECADRON 4 MG IV ×3 (08:00→22:08)
[2023-09-07] MEDS: NON-FORMULARY ITEM 1 UNIT BOTH EYES (08:01)
[2023-09-07] MEDS: MIRALAX 17 GRAMS PO (08:01)
[2023-09-07] MEDS: NON-FORMULARY ITEM 1 UNIT NASAL ×2 (08:01→21:01)
[2023-09-07] MEDS: SYNTHROID 75 MCG PO (08:02)
[2023-09-07] MEDS: NORVASC 5 MG PO (08:03)
[2023-09-07] MEDS: ROXICODONE 5 MG PO (10:40)
[2023-09-07] MEDS: LIDOCAINE 4% PATCH 1 PATCH TOPICAL (10:40)
[2023-09-07] MEDS: LIDOCAINE 4% PATCH TOPICAL (11:28)
[2023-09-07 11:43] LABS: Glucose - Point of Care 265 mg/dl (70-99)
[2023-09-07] MEDS: NOVOLOG FLEXPEN 8 UNITS SC ×2 (12:07→17:52)
--- NOTE | 2023-09-07 12:28 | CM ---
Reviewed the chart notes. Per notes, plan for MADISON to L-spine, required being off aspirin for 5 days through 09/08. PT recommending SNF/rehab prior to transition back to home. Will need to see how patient responds to MADISON. CM continues to be
available to patient/family and is monitoring medical plan for needs at discharge.
Plan: Discharge plans will depend on the patient's progress after MADISON.
--- NOTE | 2023-09-07 14:51 | W.PN.HOSP.TC ---
Addendum entered and electronically signed by Taiwo Hutton MD 09/07/23 15:55:
Patient seen and examined
Discussed with resident
Right thigh pain with lower spine DJD.
Noted improved mobility and tolerance to physical therapy since initiation of systemic corticosteroids
Continue Decadron
Continue PT assessment.
IDDM with steroid-induced hyperglycemia.
Adjust insulin regimen increasing Lantus to 27 units and AC NovoLog at 8 units
Continue basal bolus protocol
Hold aspirin anticipating lumbar spine MADISON
Original Note:
Today's Communication/Plan
-
- Continue PT/OT.
- Continue Decadron.
- Continue adjusted insulin.
Assessment / Plan
Assessment / Plan
Assessment:
Margarita Bazan, 83 year-old female, presented to the emergency with low back pain and worsening right lower extremity pain on 09-01-23.�She has had pain in the RLE from the hip to the knee for a few weeks now with no apparent fall, injury or
trauma.�She states that the pain was more severe over the past 3 days or so.�Prior to coming to the ED, she reports that she stood to use the bathroom and had severe pain. She was completely unable to bear weight on the RLE or ambulate.
Of note, she underwent outpatient MRI of the right hip on 08-20-23 which showed labrum tear and high-grade gluteus minimus tear, and had a follow-up scheduled with orthopedic surgery later in the month.�She was also seen in the ED here on 08-31-23
for worsening pain and discharged with oxycodone. She returned to the ED a day later with increased pain and inability to ambulate.
Patient notes that her underwent shoulder surgery a few weeks ago and she has been doing more activity around the house than usual and likely lifting heavier things than she is used to. Her is not able to assist her much given his
limitations post-surgery. In the ED, patient described the pain in the right groin radiating along the medial thigh and additional pain from the low back radiating down the lateral thigh.�Pain is much more severe when standing / bearing weight.
Impression:
* Right lower extremity pain causing ambulatory dysfunction
* Tear of the anterior superior right acetabular labrum
* High-grade partial tear of the right gluteus minimus tendon
* Right greater trochanteric bursitis
* Mild right hip osteoarthritis
* Lumbar spine radiculopathy
Conditions known prior to admission:
* Giant cell arteritis
* Polymyalgia rheumatica
* Type II diabetes mellitus with polyneuropathy
* Chronic kidney disease, stage 3
* Chronic heart failure with preserved ejection fraction
* Essential hypertension
* Hypercholesterolemia
* Hypothyroidism
* Aortic stenosis
* Asthma without acute exacerbation
* Myasthenia gravis, ocular type
Plan:
Right lower extremity pain causing ambulatory dysfunction
- Patient has had progressive right lower extremity pain for the past few weeks.
- She had an MRI on 08-20-23, which showed multiple right lower extremity pathologies, corresponding to the location of her pain.
- She has had a left KUSUM with Dr. Bermudez previously, and had a follow-up scheduled for this month for the right-sided pain.
- Came to the ED with worsening pain on 08-31-23, and was discharged on oxycodone.
- Came back the next day, on 09-01-23 with worsening pain and significant ambulatory dysfunction.
- Admitted on 09-01-23 for observation.
- Physical examination and review of system is consistent with known right lower extremity pathologies.
- Ultrasound was unremarkable, vitals have been stable and blood-work not significant.
- Likely multifactorial, in the setting of:
~ Tear of the anterior superior right acetabular labrum
~ High-grade partial tear of the right gluteus minimus tendon
~ Right partial abductor tear
~ Right greater trochanteric bursitis
~ Mild right hip osteoarthritis
- lumbar radiculopathy likely contributing.
- Seen by orthopedic surgery; injected with 4cc .25% marcaine and 1cc 40mg triamcinolone without complication at the greater trochanter on 09-02-23.
- PT/OT evaluation.
- The pain is unchanged from the day of her admission, and she is unable to tolerate any movements/change in her position.
- Will see if this improves after the MADISON; can consider alternative interventions if the pain persists after that.
- IV Decadron 4 mg 3 times daily while holding maintenance prednisone dose since 09-05-23.
- Improved slightly since starting Decadron; will monitor.
Lumbar spine radiculopathy
- Patient has also noted worsening low back pain.
- Denies numbness or tingling down the leg, bowel or bladder incontinence, or saddle anesthesia.
- MR lumber spine on 09-02-23 noted:
~ 'New moderate to large right foraminal disc superior disc extrusion at L2/L3 causing exiting right L2 nerve root impingement.'
~ 'New moderate-sized left subarticular disc herniation at L2/L3 with both superior and inferior extrusion of a portion of the herniated disc causing severe left lateral recess stenosis and descending left L3 nerve root impingement.'
~ 'Interval increase in moderate to severe central canal stenosis at L2/L3.'
~ Additional known findings of degenerative disc, central canal stenosis, foraminal narrowing, and chronic superior endplate fracture of L1.
- Could be contributing to the current presentation.
- Neurosurgery consult appreciate
- IR consulted for MADISON.
- Aspirin has been held since 09-04-23; will be held for 5 days and can get the
Giant cell arteritis/Polymyalgia rheumatica
�- Stable.�Continue current prednisone dosing without changes.
�- Hold Actemra while inpatient - resume after discharge.
�- ESR and CRP within normal limits on 09-01-23.
Type II diabetes mellitus with polyneuropathy
�- Cover with SSI as needed.
�- A1C 9.1 on 09-02-23.
�- Continue gabapentin.
- Continue basal bolus protocol adjusting insulin regimen accordingly.
- Now with steroid-induced hyperglycemia as anticipated.
- Adjust insulin dose with increase of Lantus, addition of Premeal short acting insulin increasing basal bolus protocol to high-dose.
Chronic kidney disease, stage 3
�- Stable.�Renal function at / near known baseline.
�- Follow for any changes.
Essential hypertension
�- Stable. Continue outpatient regimen with holding parameters.
Aortic stenosis
- s/p TAVR
�- Stable.�Continue CV med regimen.
Asthma without acute exacerbation
�- Stable.� No active wheezing or complaints of dyspnea.
�- Albuterol PRN if necessary.
Constipation
-make miralax daily not PRN
-add colace
-dulcolax supp PRN
DVT prophylaxis
- Heparin SC.
Code status
- Full.
Anticipated Discharge: > 48 hours
Subjective/Interval History
-
Date of Service: September 07, 2023
Objective Data
-
Labs:
Laboratory Results
09/07/23 09/07/23
01:58 06:00
Sodium 130 L Cancelled
Potassium 4.6 Cancelled
Chloride 98 Cancelled
Carbon Dioxide 22 Cancelled
BUN 44 H Cancelled
Creatinine 1.4 H Cancelled
Glucose Cancelled
Calcium 9.3 Cancelled
Vital Signs:
Vital Signs
Temp Pulse Resp BP Pulse Ox
97.8 F 75 18 155/94 99
09/07/23 07:10 09/07/23 08:03 09/07/23 07:10 09/07/23 08:03 09/07/23 07:10
I&O
09/06/23 09/07/23 09/08/23
06:59 06:59 06:59
Intake Total 1800 / 1800 1440 / 1440 560 / 560
Output Total 700 / 700 600 / 600
Balance 1100 / 1100 840 / 840 560 / 560
Review of Systems
-
History Source: Patient
Constitutional: Reports No Symptoms
EENT: Reports No Symptoms Reported
Respiratory: Reports No Symptoms
Cardiac: Reports No Symptoms
Abdomen/GI: Reports No Symptoms
Genitourinary: Reports No Symptoms
Musculoskeletal: Reports Joint Pain and Muscle Pain
Skin: Reports No Symptoms
Neuro: Reports No Symptoms
Endocrine: Reports No Symptoms
Hematologic / Lymphatic: Reports No Symptoms
Allergy / Immunology: Reports No Symptoms
Physical Exam
-
General: No Apparent Distress, Comfortable and Conversant
HEENT: Normocephalic, Atraumatic, Moist Mucous Membranes and Anicteric
Respiratory: Clear to Auscultation and Non Labored Respirations
Cardiac: Regular Rhythm and S1/S2
GI: Soft, Nontender, Nondistended, Normal Bowel Sounds and No Hepatosplenomegaly
Genito-urinary: No Costovertebral Tender
Musculoskeletal: No Clubbing, No Cyanosis, No Edema and Other (generalized pain from right groin to to the knee; discomfort to palpation over her right sided low back; exam unremarkable from below the knee)
Skin: Warm, Dry and IV Access / Catheter Site
Neuro: Awake, Alert, Oriented, No Motor Deficits and No Sensory Deficits
Hematologic / Lymphatic: No Lymphadenopathy
Psych: Calm
[2023-09-07 15:45] VITALS: BP 168/72
[2023-09-07 16:44] VITALS: BP 137/67
[2023-09-07 17:35] LABS: Glucose - Point of Care 271 mg/dl (70-99)
[2023-09-07 21:47] LABS: Glucose - Point of Care 326 mg/dl (70-99)
[2023-09-07] MEDS: TOPROL XL 50 MG PO (22:09)
[2023-09-07] MEDS: LEVEMIR 0.270000000000000018 UNITS SC (22:09)
[2023-09-07] MEDS: NOVOLOG FLEXPEN 10 UNITS SC (22:20)
--- NOTE | 2023-09-07 23:00 | PTCARENOTE ---
Blood sugar- 326. DAKOTA Perera made aware. stat order for 10U of Novolog SC now.
[2023-09-07 23:15] VITALS: BP 143/76
[2023-09-08 00:17] LABS: Glucose - Point of Care 231 mg/dl (70-99)
[2023-09-08] MEDS: ROXICODONE 5 MG PO (04:52)
[2023-09-08 06:00] VITALS: BMI 31.4
[2023-09-08 06:35] LABS: Blood Urea Nitrogen 50 mg/dl (7-17); Calcium 9.7 mg/dl (8.4-10.2); Carbon Dioxide 23 mmol/L (22-30); Chloride 99 mmol/L (98-107); Estimated Creatinine Clearance 31 ml/min; Glucose 249 mg/dl (70-99); Potassium 4.7 mmol/L (3.5-5.1); Sodium 133 mmol/L (135-145); eGFR 37.56
[2023-09-08 07:40] VITALS: BP 146/77
[2023-09-08 08:07] LABS: Glucose - Point of Care 229 mg/dl (70-99)
[2023-09-08] MEDS: MIRALAX 17 GRAMS PO (08:09)
[2023-09-08] MEDS: TYLENOL 1000 MG PO ×3 (08:09→21:33)
[2023-09-08] MEDS: SYNTHROID 75 MCG PO (08:09)
[2023-09-08] MEDS: PROTONIX 40 MG PO (08:09)
[2023-09-08] MEDS: VITAMIN B-12 1000 MCG PO (08:10)
[2023-09-08] MEDS: NEURONTIN 200 MG PO ×3 (08:10→21:33)
[2023-09-08] MEDS: VITAMIN D3 (cholecalciferol) 50 MCG PO (08:10)
[2023-09-08] MEDS: DECADRON 4 MG IV ×3 (08:10→21:34)
[2023-09-08] MEDS: COLACE 100 MG PO ×2 (08:10→19:48)
[2023-09-08] MEDS: NOVOLOG FLEXPEN-HIGH RESISTANCE 4 UNITS SC (08:11)
[2023-09-08] MEDS: NOVOLOG FLEXPEN 8 UNITS SC (08:11)
[2023-09-08] MEDS: NORVASC 5 MG PO (08:13)
[2023-09-08] MEDS: NON-FORMULARY ITEM 1 UNIT NASAL ×2 (08:14→19:49)
[2023-09-08] MEDS: LIDOCAINE 4% PATCH 1 PATCH TOPICAL ×2 (08:15)
[2023-09-08] MEDS: NON-FORMULARY ITEM 1 UNIT BOTH EYES ×2 (08:16→19:56)
[2023-09-08 11:42] LABS: Glucose - Point of Care 311 mg/dl (70-99)
[2023-09-08] MEDS: NOVOLOG FLEXPEN-HIGH RESISTANCE 10 UNITS SC (11:50)
[2023-09-08] MEDS: NOVOLOG FLEXPEN 12 UNITS SC ×2 (11:50→17:29)
[2023-09-08 12:52] VITALS: BP 126/61
[2023-09-08 16:00] VITALS: BP 130/63
--- NOTE | 2023-09-08 16:54 | W.PN.HOSP.TC ---
Today's Communication/Plan
-
Continue physical therapy
For MADISON on 09/08
Has been off aspirin
Adjust insulin dose with increase Lantus to 35 units at bedtime and NovoLog 12 units AC
Continue basal bolus protocol with serial Accu-Cheks
Assessment / Plan
Assessment / Plan
Assessment:
Margarita Bazan, 83 year-old female, presented to the emergency with low back pain and worsening right lower extremity pain on 09-01-23.�She has had pain in the RLE from the hip to the knee for a few weeks now with no apparent fall, injury or
trauma.�She states that the pain was more severe over the past 3 days or so.�Prior to coming to the ED, she reports that she stood to use the bathroom and had severe pain. She was completely unable to bear weight on the RLE or ambulate.
Of note, she underwent outpatient MRI of the right hip on 08-20-23 which showed labrum tear and high-grade gluteus minimus tear, and had a follow-up scheduled with orthopedic surgery later in the month.�She was also seen in the ED here on 08-31-23
for worsening pain and discharged with oxycodone. She returned to the ED a day later with increased pain and inability to ambulate.
Patient notes that her underwent shoulder surgery a few weeks ago and she has been doing more activity around the house than usual and likely lifting heavier things than she is used to. Her is not able to assist her much given his
limitations post-surgery. In the ED, patient described the pain in the right groin radiating along the medial thigh and additional pain from the low back radiating down the lateral thigh.�Pain is much more severe when standing / bearing weight.
Impression:
* Right lower extremity pain causing ambulatory dysfunction
* Tear of the anterior superior right acetabular labrum
* High-grade partial tear of the right gluteus minimus tendon
* Right greater trochanteric bursitis
* Mild right hip osteoarthritis
* Lumbar spine radiculopathy
Conditions known prior to admission:
* Giant cell arteritis
* Polymyalgia rheumatica
* Type II diabetes mellitus with polyneuropathy
* Chronic kidney disease, stage 3
* Chronic heart failure with preserved ejection fraction
* Essential hypertension
* Hypercholesterolemia
* Hypothyroidism
* Aortic stenosis
* Asthma without acute exacerbation
* Myasthenia gravis, ocular type
Plan:
Right lower extremity pain causing ambulatory dysfunction
- Patient has had progressive right lower extremity pain for the past few weeks.
- She had an MRI on 08-20-23, which showed multiple right lower extremity pathologies, corresponding to the location of her pain.
- She has had a left KUSUM with Dr. Bermudez previously, and had a follow-up scheduled for this month for the right-sided pain.
- Came to the ED with worsening pain on 08-31-23, and was discharged on oxycodone.
- Came back the next day, on 09-01-23 with worsening pain and significant ambulatory dysfunction.
- Admitted on 09-01-23 for observation.
- Physical examination and review of system is consistent with known right lower extremity pathologies.
- Ultrasound was unremarkable, vitals have been stable and blood-work not significant.
- Likely multifactorial, in the setting of:
~ Tear of the anterior superior right acetabular labrum
~ High-grade partial tear of the right gluteus minimus tendon
~ Right partial abductor tear
~ Right greater trochanteric bursitis
~ Mild right hip osteoarthritis
- lumbar radiculopathy likely contributing.
- Seen by orthopedic surgery; injected with 4cc .25% marcaine and 1cc 40mg triamcinolone without complication at the greater trochanter on 09-02-23.
- PT/OT evaluation consistent with improved mobility as of
-Pain improved with addition corticosteroids
-MADISON scheduled by interventional radiology on 09/08 while off aspirin for 5 days
- IV Decadron 4 mg 3 times daily while holding maintenance prednisone dose since 09-05-23.
- Improved slightly since starting Decadron; will monitor.
Lumbar spine radiculopathy
- Patient has also noted worsening low back pain.
- Denies numbness or tingling down the leg, bowel or bladder incontinence, or saddle anesthesia.
- MR lumber spine on 09-02-23 noted:
~ 'New moderate to large right foraminal disc superior disc extrusion at L2/L3 causing exiting right L2 nerve root impingement.'
~ 'New moderate-sized left subarticular disc herniation at L2/L3 with both superior and inferior extrusion of a portion of the herniated disc causing severe left lateral recess stenosis and descending left L3 nerve root impingement.'
~ 'Interval increase in moderate to severe central canal stenosis at L2/L3.'
~ Additional known findings of degenerative disc, central canal stenosis, foraminal narrowing, and chronic superior endplate fracture of L1.
- Could be contributing to the current presentation.
- Neurosurgery consult appreciate
- IR consulted for MADISON.
- Aspirin has been held since 09-04-23; will be held for 5 days and can get the
Giant cell arteritis/Polymyalgia rheumatica
�- Stable.�Continue current prednisone dosing without changes.
�- Hold Actemra while inpatient - resume after discharge.
�- ESR and CRP within normal limits on 09-01-23.
Type II diabetes mellitus with polyneuropathy
�- Cover with SSI as needed.
�- A1C 9.1 on 09-02-23.
�- Continue gabapentin.
- Continue basal bolus protocol adjusting insulin regimen accordingly.
- Now with steroid-induced hyperglycemia as anticipated.
- Adjust insulin dose with increase of Lantus, addition of Premeal short acting insulin increasing basal bolus protocol to high-dose.
Chronic kidney disease, stage 3
�- Stable.�Renal function at / near known baseline.
�- Follow for any changes.
Essential hypertension
�- Stable. Continue outpatient regimen with holding parameters.
Aortic stenosis
- s/p TAVR
�- Stable.�Continue CV med regimen.
Asthma without acute exacerbation
�- Stable.� No active wheezing or complaints of dyspnea.
�- Albuterol PRN if necessary.
Constipation
-make miralax daily not PRN
-add colace
-dulcolax supp PRN
DVT prophylaxis
- Heparin SC.
Code status
- Full.
Anticipated Discharge: 24 - 48 hours
Subjective/Interval History
-
Date of Service: September 08, 2023
Objective Data
-
Labs:
Laboratory Results
09/08/23
04:56
Sodium 133 L
Potassium 4.7
Chloride 99
Carbon Dioxide 23
BUN 50 H
Creatinine 1.4 H
Glucose 249 H
Calcium 9.7
Vital Signs:
Vital Signs
Temp Pulse Resp BP Pulse Ox
97.9 F 66 18 130/63 96
09/08/23 16:00 09/08/23 16:00 09/08/23 16:00 09/08/23 16:00 09/08/23 16:00
I&O
09/07/23 09/08/23 09/09/23
06:59 06:59 06:59
Intake Total 1440 / 1440 1280 / 1280
Output Total 600 / 600
Balance 840 / 840 1280 / 1280
Physical Exam
-
General: Well Developed and No Apparent Distress
HEENT: Normocephalic, Atraumatic and Moist Mucous Membranes
Respiratory: Clear to Auscultation
Cardiac: Regular Rhythm and S1/S2; Negative Murmur, Rub or Gallop
GI: Soft, Nontender, Nondistended and Normal Bowel Sounds; Negative Organomegaly
Rectal: Deferred by Provider
Musculoskeletal: No Clubbing, No Cyanosis and No Edema
Skin: Negative Rash
Neuro: Nonfocal/Grossly Intact
[2023-09-08 17:20] LABS: Glucose - Point of Care 172 mg/dl (70-99)
[2023-09-08] MEDS: NOVOLOG FLEXPEN-HIGH RESISTANCE 2 UNITS SC (17:29)
[2023-09-08] MEDS: TOPROL XL 50 MG PO (21:33)
[2023-09-08 21:35] LABS: Glucose - Point of Care 220 mg/dl (70-99)
[2023-09-08] MEDS: LEVEMIR 0.349999999999999978 UNITS SC (21:35)
[2023-09-08 23:30] VITALS: BP 126/60
[2023-09-09] MEDS: ROXICODONE 5 MG PO (04:46)
[2023-09-09 05:41] VITALS: BMI 30.7
[2023-09-09 07:50] VITALS: BP 162/81
[2023-09-09] MEDS: PROTONIX 40 MG PO (08:13)
[2023-09-09] MEDS: TYLENOL 1000 MG PO ×2 (08:13→21:55)
[2023-09-09] MEDS: NORVASC 5 MG PO (08:14)
[2023-09-09] MEDS: DECADRON 4 MG IV ×3 (08:14→21:56)
[2023-09-09] MEDS: COLACE 100 MG PO ×2 (08:14→21:56)
[2023-09-09] MEDS: NEURONTIN 200 MG PO ×3 (08:14→21:55)
[2023-09-09] MEDS: VITAMIN B-12 1000 MCG PO (08:14)
[2023-09-09] MEDS: VITAMIN D3 (cholecalciferol) 50 MCG PO (08:14)
[2023-09-09] MEDS: NON-FORMULARY ITEM 1 UNIT NASAL ×2 (08:15→21:56)
[2023-09-09] MEDS: NON-FORMULARY ITEM 1 UNIT BOTH EYES (08:15)
[2023-09-09] MEDS: MIRALAX 17 GRAMS PO (08:15)
[2023-09-09] MEDS: SYNTHROID 75 MCG PO (08:16)
[2023-09-09] MEDS: LIDOCAINE 4% PATCH 1 PATCH TOPICAL ×2 (08:16)
[2023-09-09 08:47] LABS: Glucose - Point of Care 235 mg/dl (70-99)
[2023-09-09] MEDS: NOVOLOG FLEXPEN-HIGH RESISTANCE 4 UNITS SC (09:14)
[2023-09-09] MEDS: NOVOLOG FLEXPEN 12 UNITS SC (09:14)
[2023-09-09] MEDS: NOVOLOG FLEXPEN SC (11:59)
[2023-09-09 12:04] LABS: Glucose - Point of Care 307 mg/dl (70-99)
[2023-09-09] MEDS: NOVOLOG FLEXPEN 15 UNITS SC ×2 (12:31→17:27)
[2023-09-09] MEDS: NOVOLOG FLEXPEN-HIGH RESISTANCE 10 UNITS SC (12:32)
[2023-09-09 13:50] VITALS: BP 139/57; BP_SYST 72
--- NOTE | 2023-09-09 14:09 | CM ---
Reviewed the chart notes. Patient is scheduled for MADISON to L-spine. PT evaluation now recommending home health at discharge. CM continues to be available to patient/family and is monitoring medical plan for needs at discharge.
Plan: Discharge plans will depend on the patient's progress after injection.
--- NOTE | 2023-09-09 15:12 | W.PN.HOSP.TC ---
Addendum entered and electronically signed by Taiwo Hutton MD 09/09/23 16:19:
Patient seen and examined
Discussed with resident
Discussed with nursing
Impression/plan
Lumbar spine radiculopathy with referred severe pain to her right thigh and inability to bear weight/severe ambulatory dysfunction on presentation.
Improved with introduction of corticosteroids
For MADISON today after being off aspirin for 5 days.
Overall improving with now PT assessment close to baseline.
IDDM with corticosteroid-induced hyperglycemia
Insulin dose has been increased to Lantus 42 units at bedtime/NovoLog 15 units AC.
Home to wean off systemic corticosteroids after MADISON
GCA on prednisone maintenance. Would come back to the maintenance dose of 5 mg once off IV Decadron.
Disposition plan reassess with PT/OT after MADISON, and while off systemic corticosteroids
Hopefully will be able to be discharged with next 24 to 48 hours.
Original Note:
Today's Communication/Plan
-
- Continue PT/OT.
- Continue basal bolus protocol with serial Accu-Cheks.
- MADISON today.
Assessment / Plan
Assessment / Plan
Assessment:
Margarita Bazan, 83 year-old female, presented to the emergency with low back pain and worsening right lower extremity pain on 09-01-23.�She has had pain in the RLE from the hip to the knee for a few weeks now with no apparent fall, injury or
trauma.�She states that the pain was more severe over the past 3 days or so.�Prior to coming to the ED, she reports that she stood to use the bathroom and had severe pain. She was completely unable to bear weight on the RLE or ambulate.
Of note, she underwent outpatient MRI of the right hip on 08-20-23 which showed labrum tear and high-grade gluteus minimus tear, and had a follow-up scheduled with orthopedic surgery later in the month.�She was also seen in the ED here on 08-31-23
for worsening pain and discharged with oxycodone. She returned to the ED a day later with increased pain and inability to ambulate.
Patient notes that her underwent shoulder surgery a few weeks ago and she has been doing more activity around the house than usual and likely lifting heavier things than she is used to. Her is not able to assist her much given his
limitations post-surgery. In the ED, patient described the pain in the right groin radiating along the medial thigh and additional pain from the low back radiating down the lateral thigh.�Pain is much more severe when standing / bearing weight.
Impression:
* Right lower extremity pain causing ambulatory dysfunction
* Tear of the anterior superior right acetabular labrum
* High-grade partial tear of the right gluteus minimus tendon
* Right greater trochanteric bursitis
* Mild right hip osteoarthritis
* Lumbar spine radiculopathy
Conditions known prior to admission:
* Giant cell arteritis
* Polymyalgia rheumatica
* Type II diabetes mellitus with polyneuropathy
* Chronic kidney disease, stage 3
* Chronic heart failure with preserved ejection fraction
* Essential hypertension
* Hypercholesterolemia
* Hypothyroidism
* Aortic stenosis
* Asthma without acute exacerbation
* Myasthenia gravis, ocular type
Plan:
Right lower extremity pain causing ambulatory dysfunction
- Patient has had progressive right lower extremity pain for the past few weeks.
- She had an MRI on 08-20-23, which showed multiple right lower extremity pathologies, corresponding to the location of her pain.
- She has had a left KUSUM with Dr. Bermudez previously, and had a follow-up scheduled for this month for the right-sided pain.
- Came to the ED with worsening pain on 08-31-23, and was discharged on oxycodone.
- Came back the next day, on 09-01-23 with worsening pain and significant ambulatory dysfunction.
- Admitted on 09-01-23 for observation.
- Physical examination and review of system is consistent with known right lower extremity pathologies.
- Ultrasound was unremarkable, vitals have been stable and blood-work not significant.
- Likely multifactorial, in the setting of:
~ Tear of the anterior superior right acetabular labrum
~ High-grade partial tear of the right gluteus minimus tendon
~ Right partial abductor tear
~ Right greater trochanteric bursitis
~ Mild right hip osteoarthritis
- lumbar radiculopathy likely contributing.
- Seen by orthopedic surgery; injected with 4cc .25% marcaine and 1cc 40mg triamcinolone without complication at the greater trochanter on 09-02-23.
- PT/OT evaluation consistent with improved mobility as of
- Pain improved with addition corticosteroids
- IV Decadron 4 mg 3 times daily while holding maintenance prednisone dose since 09-05-23.
- Improved slightly since starting Decadron; will monitor.
- MADISON planned for today.
Lumbar spine radiculopathy
- Patient has also noted worsening low back pain.
- Denies numbness or tingling down the leg, bowel or bladder incontinence, or saddle anesthesia.
- MR lumber spine on 09-02-23 noted:
~ 'New moderate to large right foraminal disc superior disc extrusion at L2/L3 causing exiting right L2 nerve root impingement.'
~ 'New moderate-sized left subarticular disc herniation at L2/L3 with both superior and inferior extrusion of a portion of the herniated disc causing severe left lateral recess stenosis and descending left L3 nerve root impingement.'
~ 'Interval increase in moderate to severe central canal stenosis at L2/L3.'
~ Additional known findings of degenerative disc, central canal stenosis, foraminal narrowing, and chronic superior endplate fracture of L1.
- Could be contributing to the current presentation.
- Neurosurgery consult appreciate
- IR consulted for MADISON.
- Aspirin has been held since 09-04-23; planned for today.
Giant cell arteritis/Polymyalgia rheumatica
�- Stable.�Continue current prednisone dosing without changes.
�- Hold Actemra while inpatient - resume after discharge.
�- ESR and CRP within normal limits on 09-01-23.
Type II diabetes mellitus with polyneuropathy
�- Cover with SSI as needed.
�- A1C 9.1 on 09-02-23.
�- Continue gabapentin.
- Continue basal bolus protocol adjusting insulin regimen accordingly.
- Now with steroid-induced hyperglycemia as anticipated.
- Adjust insulin dose with increase of Lantus, addition of Premeal short acting insulin increasing basal bolus protocol to high-dose.
Chronic kidney disease, stage 3
�- Stable.�Renal function at / near known baseline.
�- Follow for any changes.
Essential hypertension
�- Stable. Continue outpatient regimen with holding parameters.
Aortic stenosis
- s/p TAVR
�- Stable.�Continue CV med regimen.
Asthma without acute exacerbation
�- Stable.� No active wheezing or complaints of dyspnea.
�- Albuterol PRN if necessary.
Constipation
-make miralax daily not PRN
-add colace
-dulcolax supp PRN
DVT prophylaxis
- Heparin SC.
Code status
- Full.
Anticipated Discharge: > 48 hours
Subjective/Interval History
-
Date of Service: September 09, 2023
Objective Data
-
Vital Signs:
Vital Signs
Temp Pulse Resp BP Pulse Ox
98 F 72 16 139/57 99
09/09/23 13:50 09/09/23 13:50 09/09/23 13:50 09/09/23 13:50 09/09/23 13:50
I&O
09/08/23 09/09/23 09/10/23
06:59 06:59 06:59
Intake Total 1280 / 1280 960 / 960
Balance 1280 / 1280 960 / 960
Review of Systems
-
History Source: Patient
Constitutional: Reports Fatigue
EENT: Reports No Symptoms Reported
Respiratory: Reports No Symptoms
Cardiac: Reports No Symptoms
Abdomen/GI: Reports No Symptoms
Genitourinary: Reports No Symptoms
Musculoskeletal: Reports No Symptoms
Skin: Reports No Symptoms
Neuro: Reports No Symptoms
Endocrine: Reports No Symptoms
Hematologic / Lymphatic: Reports No Symptoms
Allergy / Immunology: Reports No Symptoms
Physical Exam
-
General: No Apparent Distress and Comfortable
HEENT: Normocephalic, Atraumatic, Moist Mucous Membranes and Anicteric
Respiratory: Clear to Auscultation and Non Labored Respirations
Cardiac: Regular Rhythm and S1/S2
GI: Soft, Nontender, Nondistended and No Hepatosplenomegaly
Genito-urinary: No Costovertebral Tender
Musculoskeletal: No Clubbing, No Cyanosis and No Edema
Skin: Warm, Dry and IV Access / Catheter Site
Neuro: Awake, Alert, Oriented, No Motor Deficits and No Sensory Deficits
Hematologic / Lymphatic: No Lymphadenopathy
Psych: Calm
[2023-09-09 15:53] VITALS: BP 151/68; BP_SYST 60
[2023-09-09] MEDS: TYLENOL PO (16:12)
[2023-09-09 16:45] LABS: Glucose - Point of Care 184 mg/dl (70-99)
[2023-09-09] MEDS: NOVOLOG FLEXPEN-HIGH RESISTANCE 2 UNITS SC (17:27)
[2023-09-09 21:52] LABS: Glucose - Point of Care 210 mg/dl (70-99)
[2023-09-09] MEDS: TOPROL XL 50 MG PO (21:55)
[2023-09-09] MEDS: LEVEMIR 0.419999999999999984 UNITS SC (21:55)
[2023-09-09 23:40] VITALS: BP 140/72
[2023-09-10] MEDS: ROXICODONE 5 MG PO (05:33)
[2023-09-10 06:00] VITALS: BMI 30.5
[2023-09-10 08:00] VITALS: BP 161/79
[2023-09-10 08:09] LABS: Glucose - Point of Care 188 mg/dl (70-99)
[2023-09-10] MEDS: NORVASC 5 MG PO (08:38)
[2023-09-10] MEDS: VITAMIN D3 (cholecalciferol) 50 MCG PO (08:38)
[2023-09-10] MEDS: PROTONIX 40 MG PO (08:38)
[2023-09-10] MEDS: LIDOCAINE 4% PATCH 1 PATCH TOPICAL ×2 (08:38)
[2023-09-10] MEDS: NEURONTIN 200 MG PO ×3 (08:38→21:52)
[2023-09-10] MEDS: TYLENOL 1000 MG PO ×3 (08:38→21:52)
[2023-09-10] MEDS: VITAMIN B-12 1000 MCG PO (08:38)
[2023-09-10] MEDS: SYNTHROID 75 MCG PO (08:38)
[2023-09-10] MEDS: COLACE 100 MG PO (08:38)
[2023-09-10] MEDS: NOVOLOG FLEXPEN 15 UNITS SC ×3 (08:39→17:35)
[2023-09-10] MEDS: NOVOLOG FLEXPEN-HIGH RESISTANCE 2 UNITS SC (08:39)
[2023-09-10] MEDS: DECADRON 4 MG IV (08:39)
[2023-09-10] MEDS: MIRALAX 17 GRAMS PO (08:40)
[2023-09-10] MEDS: NON-FORMULARY ITEM 1 UNIT BOTH EYES ×2 (08:40→21:53)
[2023-09-10] MEDS: NON-FORMULARY ITEM NASAL (09:21)
--- NOTE | 2023-09-10 10:11 | W.PN.HOSP.TC ---
Today's Communication/Plan
-
wean steroids
PT/OT
watch sugars
Assessment / Plan
Assessment / Plan
Assessment:
Margarita Bazan, 83 year-old female, presented to the emergency with low back pain and worsening right lower extremity pain on 09-01-23.�She has had pain in the RLE from the hip to the knee for a few weeks now with no apparent fall, injury or
trauma.�She states that the pain was more severe over the past 3 days or so.�Prior to coming to the ED, she reports that she stood to use the bathroom and had severe pain. She was completely unable to bear weight on the RLE or ambulate.
Of note, she underwent outpatient MRI of the right hip on 08-20-23 which showed labrum tear and high-grade gluteus minimus tear, and had a follow-up scheduled with orthopedic surgery later in the month.�She was also seen in the ED here on 08-31-23
for worsening pain and discharged with oxycodone. She returned to the ED a day later with increased pain and inability to ambulate.
Patient notes that her underwent shoulder surgery a few weeks ago and she has been doing more activity around the house than usual and likely lifting heavier things than she is used to. Her is not able to assist her much given his
limitations post-surgery. In the ED, patient described the pain in the right groin radiating along the medial thigh and additional pain from the low back radiating down the lateral thigh.�Pain is much more severe when standing / bearing weight.
Impression:
* Right lower extremity pain causing ambulatory dysfunction
* Tear of the anterior superior right acetabular labrum
* High-grade partial tear of the right gluteus minimus tendon
* Right greater trochanteric bursitis
* Mild right hip osteoarthritis
* Lumbar spine radiculopathy
Conditions known prior to admission:
* Giant cell arteritis
* Polymyalgia rheumatica
* Type II diabetes mellitus with polyneuropathy
* Chronic kidney disease, stage 3
* Chronic heart failure with preserved ejection fraction
* Essential hypertension
* Hypercholesterolemia
* Hypothyroidism
* Aortic stenosis
* Asthma without acute exacerbation
* Myasthenia gravis, ocular type
Plan:
09/10/23 -- pt doing better--cont PT/OT--wean steroids--s/p epidural--did discuss need for possible eventual surgery
Right lower extremity pain causing ambulatory dysfunction
- Patient has had progressive right lower extremity pain for the past few weeks.
- She had an MRI on 08-20-23, which showed multiple right lower extremity pathologies, corresponding to the location of her pain.
- She has had a left KUSUM with Dr. Bermudez previously, and had a follow-up scheduled for this month for the right-sided pain.
- Came to the ED with worsening pain on 08-31-23, and was discharged on oxycodone.
- Came back the next day, on 09-01-23 with worsening pain and significant ambulatory dysfunction.
- Admitted on 09-01-23 for observation.
- Physical examination and review of system is consistent with known right lower extremity pathologies.
- Ultrasound was unremarkable, vitals have been stable and blood-work not significant.
- Likely multifactorial, in the setting of:
~ Tear of the anterior superior right acetabular labrum
~ High-grade partial tear of the right gluteus minimus tendon
~ Right partial abductor tear
~ Right greater trochanteric bursitis
~ Mild right hip osteoarthritis
- lumbar radiculopathy likely contributing.
- Seen by orthopedic surgery; injected with 4cc .25% marcaine and 1cc 40mg triamcinolone without complication at the greater trochanter on 09-02-23.
- PT/OT evaluation consistent with improved mobility as of
- Pain improved with addition corticosteroids
- IV Decadron 4 mg 3 times daily while holding maintenance prednisone dose since 09-05-23.
- Improved slightly since starting Decadron; will monitor.
- MADISON planned for today.
Lumbar spine radiculopathy
- Patient has also noted worsening low back pain.
- Denies numbness or tingling down the leg, bowel or bladder incontinence, or saddle anesthesia.
- MR lumber spine on 09-02-23 noted:
~ 'New moderate to large right foraminal disc superior disc extrusion at L2/L3 causing exiting right L2 nerve root impingement.'
~ 'New moderate-sized left subarticular disc herniation at L2/L3 with both superior and inferior extrusion of a portion of the herniated disc causing severe left lateral recess stenosis and descending left L3 nerve root impingement.'
~ 'Interval increase in moderate to severe central canal stenosis at L2/L3.'
~ Additional known findings of degenerative disc, central canal stenosis, foraminal narrowing, and chronic superior endplate fracture of L1.
- Could be contributing to the current presentation.
- Neurosurgery consult appreciate
- IR consulted for MADISON.
- Aspirin has been held since 09-04-23; planned for today.
Giant cell arteritis/Polymyalgia rheumatica
�- Stable.�Continue current prednisone dosing without changes.
�- Hold Actemra while inpatient - resume after discharge.
�- ESR and CRP within normal limits on 09-01-23.
Type II diabetes mellitus with polyneuropathy--sugars running high--insulin adjusted now with weaning steroids, may need to decrease insulin--follow closely
�- Cover with SSI as needed.
�- A1C 9.1 on 09-02-23.
�- Continue gabapentin.
- Continue basal bolus protocol adjusting insulin regimen accordingly.
- Now with steroid-induced hyperglycemia as anticipated.
- Adjust insulin dose with increase of Lantus, addition of Premeal short acting insulin increasing basal bolus protocol to high-dose.
Chronic kidney disease, stage 3
�- Stable.�Renal function at / near known baseline.
�- Follow for any changes.
Essential hypertension
�- Stable. Continue outpatient regimen with holding parameters.
Aortic stenosis
- s/p TAVR
�- Stable.�Continue CV med regimen.
Asthma without acute exacerbation
�- Stable.� No active wheezing or complaints of dyspnea.
�- Albuterol PRN if necessary.
Constipation
-make miralax daily not PRN
-add colace
-dulcolax supp PRN
DVT prophylaxis
- Heparin SC.
Code status
- Full.
Anticipated Discharge: > 48 hours
Subjective/Interval History
-
Date of Service: September 10, 2023
pt can now stand on her leg
Objective Data
-
Vital Signs:
max temp for 24 hours
09/09/23
13:50
Temp 98 F
Vital Signs
Temp Pulse Resp BP Pulse Ox
97.6 F 64 20 161/79 100
09/10/23 08:00 09/10/23 08:00 09/10/23 08:00 09/10/23 08:00 09/10/23 08:00
I&O
09/09/23 09/10/23 09/11/23
06:59 06:59 06:59
Intake Total 960 / 960 580 / 580
Balance 960 / 960 580 / 580
Review of Systems
-
All other systems: Reviewed and negative
Physical Exam
-
General: Well Developed, Well Nourished and No Apparent Distress
HEENT: Normocephalic and Atraumatic; Negative Oxygen
Respiratory: Clear to Auscultation; Negative Wheezes or Rhonchi
Cardiac: Regular Rhythm, S1/S2 and Murmur
GI: Soft, Nontender, Nondistended and Normal Bowel Sounds
Musculoskeletal: No Clubbing, No Cyanosis and No Edema
Neuro: Awake
Psych: Calm
[2023-09-10 12:24] LABS: Glucose - Point of Care 279 mg/dl (70-99)
[2023-09-10] MEDS: NOVOLOG FLEXPEN-HIGH RESISTANCE 7 UNITS SC (12:36)
[2023-09-10] MEDS: ROXICODONE 2.5 MG PO ×2 (14:29→21:51)
[2023-09-10 16:00] VITALS: BP 126/60
[2023-09-10 17:26] LABS: Glucose - Point of Care 234 mg/dl (70-99)
[2023-09-10] MEDS: DECADRON 2 MG IV ×2 (17:32→21:53)
[2023-09-10] MEDS: NOVOLOG FLEXPEN-HIGH RESISTANCE 4 UNITS SC (17:35)
[2023-09-10 21:36] LABS: Glucose - Point of Care 189 mg/dl (70-99)
[2023-09-10] MEDS: LEVEMIR 0.419999999999999984 UNITS SC (21:53)
[2023-09-10] MEDS: NON-FORMULARY ITEM 1 UNIT NASAL (21:53)
[2023-09-10] MEDS: TOPROL XL 50 MG PO (21:53)
[2023-09-10] MEDS: COLACE PO (21:56)
[2023-09-10 23:45] VITALS: BP 132/66
[2023-09-11] MEDS: ROXICODONE 2.5 MG PO (05:14)
[2023-09-11 05:39] VITALS: BMI 30.5
[2023-09-11 06:00] VITALS: BMI 30.5
[2023-09-11 07:00] VITALS: BP 136/74
[2023-09-11 07:14] LABS: Hematocrit 41.7 % (37.0-47.0); Hemoglobin 13.7 g/dL (12.0-16.0); Mean Corp Hgb Conc. 32.9 g/dL (33.0-37.0); Mean Corpuscular Hgb 29.5 pg (27.0-31.0); Mean Corpuscular Volume 89.7 fL (81.0-99.0); Platelet Count 260 10^3/uL (130-400); Red Blood Cell Count 4.65 10^6/uL (4.20-5.40); Red Cell Dist. Width 13.9 % (11.5-14.5); White Blood Cell Count 16.7 10^3/uL (4.8-10.8)
[2023-09-11 08:00] LABS: Blood Urea Nitrogen 45 mg/dl (7-17); Calcium 9.1 mg/dl (8.4-10.2); Carbon Dioxide 26 mmol/L (22-30); Chloride 104 mmol/L (98-107); Estimated Creatinine Clearance 31 ml/min; Glucose 137 mg/dl (70-99); Potassium 4.9 mmol/L (3.5-5.1); Sodium 134 mmol/L (135-145); eGFR 37.56
[2023-09-11 08:19] LABS: Glucose - Point of Care 122 mg/dl (70-99)
[2023-09-11] MEDS: COLACE PO ×2 (08:37→20:16)
[2023-09-11] MEDS: MIRALAX PO (08:37)
[2023-09-11] MEDS: VITAMIN D3 (cholecalciferol) 50 MCG PO (08:39)
[2023-09-11] MEDS: VITAMIN B-12 1000 MCG PO (08:39)
[2023-09-11] MEDS: PROTONIX 40 MG PO (08:39)
[2023-09-11] MEDS: SYNTHROID 75 MCG PO (08:39)
[2023-09-11] MEDS: NORVASC 5 MG PO (08:40)
[2023-09-11] MEDS: TYLENOL 1000 MG PO ×3 (08:40→22:02)
[2023-09-11] MEDS: LIDOCAINE 4% PATCH 1 PATCH TOPICAL ×2 (08:40)
[2023-09-11] MEDS: DECADRON 2 MG IV (08:41)
[2023-09-11] MEDS: NEURONTIN 200 MG PO ×3 (08:41→22:02)
[2023-09-11] MEDS: NON-FORMULARY ITEM 1 UNIT BOTH EYES ×2 (08:42→20:20)
[2023-09-11] MEDS: NON-FORMULARY ITEM 1 UNIT NASAL ×2 (08:42→20:16)
--- NOTE | 2023-09-11 09:02 | W.PN.HOSP.TC ---
Today's Communication/Plan
-
d/c IV steroids and change to PO prednisone
watch sugars and insulin
Assessment / Plan
Assessment / Plan
Assessment:
Margarita Bazan, 83 year-old female, presented to the emergency with low back pain and worsening right lower extremity pain on 09-01-23.�She has had pain in the RLE from the hip to the knee for a few weeks now with no apparent fall, injury or
trauma.�She states that the pain was more severe over the past 3 days or so.�Prior to coming to the ED, she reports that she stood to use the bathroom and had severe pain. She was completely unable to bear weight on the RLE or ambulate.
Of note, she underwent outpatient MRI of the right hip on 08-20-23 which showed labrum tear and high-grade gluteus minimus tear, and had a follow-up scheduled with orthopedic surgery later in the month.�She was also seen in the ED here on 08-31-23
for worsening pain and discharged with oxycodone. She returned to the ED a day later with increased pain and inability to ambulate.
Patient notes that her underwent shoulder surgery a few weeks ago and she has been doing more activity around the house than usual and likely lifting heavier things than she is used to. Her is not able to assist her much given his
limitations post-surgery. In the ED, patient described the pain in the right groin radiating along the medial thigh and additional pain from the low back radiating down the lateral thigh.�Pain is much more severe when standing / bearing weight.
Impression:
* Right lower extremity pain causing ambulatory dysfunction
* Tear of the anterior superior right acetabular labrum
* High-grade partial tear of the right gluteus minimus tendon
* Right greater trochanteric bursitis
* Mild right hip osteoarthritis
* Lumbar spine radiculopathy
Conditions known prior to admission:
* Giant cell arteritis
* Polymyalgia rheumatica
* Type II diabetes mellitus with polyneuropathy
* Chronic kidney disease, stage 3
* Chronic heart failure with preserved ejection fraction
* Essential hypertension
* Hypercholesterolemia
* Hypothyroidism
* Aortic stenosis
* Asthma without acute exacerbation
* Myasthenia gravis, ocular type
Plan:
09/11/23 -- back improved, leg still bothersome--continuing to wean steroids, may need adjustment in insulin, will place pt on 40 mg Po daily of prednisone, rapid taper to outpt dose by every 2 days--insulin will need to be followed--may need outpt
therapy for leg vs ortho input re: surgery for tears
09/10/23 -- pt doing better--cont PT/OT--wean steroids--s/p epidural--did discuss need for possible eventual surgery
Right lower extremity pain causing ambulatory dysfunction
- Patient has had progressive right lower extremity pain for the past few weeks.
- She had an MRI on 08-20-23, which showed multiple right lower extremity pathologies, corresponding to the location of her pain.
- She has had a left KUSUM with Dr. Bermudez previously, and had a follow-up scheduled for this month for the right-sided pain.
- Came to the ED with worsening pain on 08-31-23, and was discharged on oxycodone.
- Came back the next day, on 09-01-23 with worsening pain and significant ambulatory dysfunction.
- Admitted on 09-01-23 for observation.
- Physical examination and review of system is consistent with known right lower extremity pathologies.
- Ultrasound was unremarkable, vitals have been stable and blood-work not significant.
- Likely multifactorial, in the setting of:
~ Tear of the anterior superior right acetabular labrum
~ High-grade partial tear of the right gluteus minimus tendon
~ Right partial abductor tear
~ Right greater trochanteric bursitis
~ Mild right hip osteoarthritis
- lumbar radiculopathy likely contributing.
- Seen by orthopedic surgery; injected with 4cc .25% marcaine and 1cc 40mg triamcinolone without complication at the greater trochanter on 09-02-23.
- PT/OT evaluation consistent with improved mobility as of
- Pain improved with addition corticosteroids
- IV Decadron 4 mg 3 times daily while holding maintenance prednisone dose since 09-05-23.
- Improved slightly since starting Decadron; will monitor.
- MADISON planned for today.
Lumbar spine radiculopathy
- Patient has also noted worsening low back pain.
- Denies numbness or tingling down the leg, bowel or bladder incontinence, or saddle anesthesia.
- MR lumber spine on 09-02-23 noted:
~ 'New moderate to large right foraminal disc superior disc extrusion at L2/L3 causing exiting right L2 nerve root impingement.'
~ 'New moderate-sized left subarticular disc herniation at L2/L3 with both superior and inferior extrusion of a portion of the herniated disc causing severe left lateral recess stenosis and descending left L3 nerve root impingement.'
~ 'Interval increase in moderate to severe central canal stenosis at L2/L3.'
~ Additional known findings of degenerative disc, central canal stenosis, foraminal narrowing, and chronic superior endplate fracture of L1.
- Could be contributing to the current presentation.
- Neurosurgery consult appreciate
- IR consulted for MADISON.
- Aspirin has been held since 09-04-23; planned for today.
Giant cell arteritis/Polymyalgia rheumatica
�- Stable.�Continue current prednisone dosing without changes.
�- Hold Actemra while inpatient - resume after discharge.
�- ESR and CRP within normal limits on 09-01-23.
Type II diabetes mellitus with polyneuropathy--sugars running high--insulin adjusted now with weaning steroids, may need to decrease insulin--follow closely
�- Cover with SSI as needed.
�- A1C 9.1 on 09-02-23.
�- Continue gabapentin.
- Continue basal bolus protocol adjusting insulin regimen accordingly.
- Now with steroid-induced hyperglycemia as anticipated.
- Adjust insulin dose with increase of Lantus, addition of Premeal short acting insulin increasing basal bolus protocol to high-dose.
Chronic kidney disease, stage 3
�- Stable.�Renal function at / near known baseline.
�- Follow for any changes.
Essential hypertension
�- Stable. Continue outpatient regimen with holding parameters.
Aortic stenosis
- s/p TAVR
�- Stable.�Continue CV med regimen.
Asthma without acute exacerbation
�- Stable.� No active wheezing or complaints of dyspnea.
�- Albuterol PRN if necessary.
Constipation
-make miralax daily not PRN
-add colace
-dulcolax supp PRN
DVT prophylaxis
- Heparin SC.
Code status
- Full.
Anticipated Discharge: 24 - 48 hours
Subjective/Interval History
-
Date of Service: September 11, 2023
pt says back better--leg still hurts (thinks likely due to the tears)
Objective Data
-
Labs:
Laboratory Results
09/11/23
06:16
WBC 16.7 H
Hgb 13.7
Hct 41.7
Plt Count 260
Sodium 134 L
Potassium 4.9
Chloride 104
Carbon Dioxide 26
BUN 45 H
Creatinine 1.4 H
Glucose 137 H
Calcium 9.1
Vital Signs:
max temp for 24 hours
09/10/23
16:00
Temp 98.2 F
Vital Signs
Temp Pulse Resp BP Pulse Ox
97.8 F 62 12 136/74 99
09/11/23 07:00 09/11/23 07:00 09/11/23 07:00 09/11/23 07:00 09/11/23 07:00
I&O
09/10/23 09/11/23 09/12/23
06:59 06:59 06:59
Intake Total 580 / 580 1220 / 1220
Balance 580 / 580 1220 / 1220
Review of Systems
-
All other systems: Reviewed and negative
Musculoskeletal: Reports Other (leg pain)
Physical Exam
-
General: Well Developed, Well Nourished and No Apparent Distress
HEENT: Normocephalic and Atraumatic
Respiratory: Clear to Auscultation; Negative Wheezes or Rhonchi
Cardiac: Regular Rhythm and S1/S2; Negative Murmur
GI: Soft, Nontender, Nondistended and Normal Bowel Sounds
Musculoskeletal: No Clubbing, No Cyanosis and No Edema
Neuro: Awake
[2023-09-11] MEDS: NOVOLOG FLEXPEN-HIGH RESISTANCE 1 UNITS SC (09:31)
[2023-09-11] MEDS: NOVOLOG FLEXPEN 15 UNITS SC ×3 (09:31→17:17)
[2023-09-11 11:48] LABS: Glucose - Point of Care 225 mg/dl (70-99)
[2023-09-11] MEDS: NOVOLOG FLEXPEN-HIGH RESISTANCE 4 UNITS SC (13:21)
[2023-09-11 15:00] VITALS: BP 127/57
[2023-09-11] MEDS: DELTASONE 40 MG PO (15:12)
[2023-09-11 16:54] LABS: Glucose - Point of Care 280 mg/dl (70-99)
[2023-09-11] MEDS: NOVOLOG FLEXPEN-HIGH RESISTANCE 7 UNITS SC (17:17)
[2023-09-11 21:55] LABS: Glucose - Point of Care 187 mg/dl (70-99)
[2023-09-11] MEDS: LEVEMIR 0.419999999999999984 UNITS SC (22:02)
[2023-09-11] MEDS: TOPROL XL 50 MG PO (22:03)
[2023-09-11 23:42] VITALS: BP 130/63
[2023-09-12 00:54] LABS: Glucose - Point of Care 233 mg/dl (70-99)
[2023-09-12 05:50] LABS: Hematocrit 41.5 % (37.0-47.0); Hemoglobin 13.8 g/dL (12.0-16.0); Mean Corp Hgb Conc. 33.3 g/dL (33.0-37.0); Mean Corpuscular Hgb 29.6 pg (27.0-31.0); Mean Corpuscular Volume 89.1 fL (81.0-99.0); Mean Platelet Volume 9.6 fL (7.4-10.4); Platelet Count 252 10^3/uL (130-400); Red Blood Cell Count 4.66 10^6/uL (4.20-5.40); Red Cell Dist. Width 13.7 % (11.5-14.5); White Blood Cell Count 17.6 10^3/uL (4.8-10.8)
[2023-09-12 06:00] VITALS: BMI 30.7
[2023-09-12 06:09] LABS: Blood Urea Nitrogen 44 mg/dl (7-17); Calcium 8.9 mg/dl (8.4-10.2); Carbon Dioxide 25 mmol/L (22-30); Chloride 103 mmol/L (98-107); Estimated Creatinine Clearance 31 ml/min; Glucose 176 mg/dl (70-99); Magnesium 2.2 mg/dl (1.6-2.3); Potassium 4.5 mmol/L (3.5-5.1); Sodium 133 mmol/L (135-145); eGFR 37.56
[2023-09-12 08:00] VITALS: BP 166/83
[2023-09-12] MEDS: ROXICODONE 2.5 MG PO (08:15)
[2023-09-12] MEDS: LIDOCAINE 4% PATCH 1 PATCH TOPICAL ×2 (08:17)
[2023-09-12] MEDS: NEURONTIN 200 MG PO (08:18)
[2023-09-12] MEDS: PROTONIX 40 MG PO (08:18)
[2023-09-12] MEDS: VITAMIN B-12 1000 MCG PO (08:18)
[2023-09-12] MEDS: DELTASONE 40 MG PO (08:18)
[2023-09-12] MEDS: NORVASC 5 MG PO (08:18)
[2023-09-12] MEDS: VITAMIN D3 (cholecalciferol) 50 MCG PO (08:18)
[2023-09-12] MEDS: COLACE PO (08:18)
[2023-09-12] MEDS: TYLENOL 1000 MG PO (08:18)
[2023-09-12] MEDS: SYNTHROID 75 MCG PO (08:19)
[2023-09-12] MEDS: NON-FORMULARY ITEM 1 UNIT NASAL (08:19)
[2023-09-12] MEDS: MIRALAX PO (08:19)
[2023-09-12] MEDS: NON-FORMULARY ITEM 1 UNIT BOTH EYES (08:24)
[2023-09-12 08:42] LABS: Glucose - Point of Care 122 mg/dl (70-99)
[2023-09-12] MEDS: NOVOLOG FLEXPEN 15 UNITS SC ×2 (09:44→12:36)
[2023-09-12] MEDS: NOVOLOG FLEXPEN-HIGH RESISTANCE 1 UNITS SC (09:45)
[2023-09-12] MEDS: REFRESH EYE DROPS (PF) 1 DROPS OPHTH (10:45)
[2023-09-12] MEDS: MYLICON 80 MG PO (10:45)
[2023-09-12] MEDS: MORPHINE SULFATE 2 MG IV (10:51)
[2023-09-12 12:04] LABS: Glucose - Point of Care 238 mg/dl (70-99)
[2023-09-12] MEDS: NOVOLOG FLEXPEN-HIGH RESISTANCE 4 UNITS SC (12:36)
--- NOTE | 2023-09-12 12:41 | W.PN.HOSP.TC ---
Today's Communication/Plan
-
- Anticipated discharge today.
Assessment / Plan
Assessment / Plan
Assessment:
Margarita Bazan, 83 year-old female, presented to the emergency with low back pain and worsening right lower extremity pain on 09-01-23.�She has had pain in the RLE from the hip to the knee for a few weeks now with no apparent fall, injury or
trauma.�She states that the pain was more severe over the past 3 days or so.�Prior to coming to the ED, she reports that she stood to use the bathroom and had severe pain. She was completely unable to bear weight on the RLE or ambulate.
Of note, she underwent outpatient MRI of the right hip on 08-20-23 which showed labrum tear and high-grade gluteus minimus tear, and had a follow-up scheduled with orthopedic surgery later in the month.�She was also seen in the ED here on 08-31-23
for worsening pain and discharged with oxycodone. She returned to the ED a day later with increased pain and inability to ambulate.
Patient notes that her underwent shoulder surgery a few weeks ago and she has been doing more activity around the house than usual and likely lifting heavier things than she is used to. Her is not able to assist her much given his
limitations post-surgery. In the ED, patient described the pain in the right groin radiating along the medial thigh and additional pain from the low back radiating down the lateral thigh.�Pain is much more severe when standing / bearing weight.
Impression:
* Right lower extremity pain causing ambulatory dysfunction
* Tear of the anterior superior right acetabular labrum
* High-grade partial tear of the right gluteus minimus tendon
* Right greater trochanteric bursitis
* Mild right hip osteoarthritis
* Lumbar spine radiculopathy
Conditions known prior to admission:
* Giant cell arteritis
* Polymyalgia rheumatica
* Type II diabetes mellitus with polyneuropathy
* Chronic kidney disease, stage 3
* Chronic heart failure with preserved ejection fraction
* Essential hypertension
* Hypercholesterolemia
* Hypothyroidism
* Aortic stenosis
* Asthma without acute exacerbation
* Myasthenia gravis, ocular type
Plan:
Right lower extremity pain causing ambulatory dysfunction
- Patient has had progressive right lower extremity pain for the past few weeks.
- She had an MRI on 08-20-23, which showed multiple right lower extremity pathologies, corresponding to the location of her pain.
- She has had a left KUSUM with Dr. Bermudez previously, and had a follow-up scheduled for this month for the right-sided pain.
- Came to the ED with worsening pain on 08-31-23, and was discharged on oxycodone.
- Came back the next day, on 09-01-23 with worsening pain and significant ambulatory dysfunction.
- Admitted on 09-01-23 for observation.
- Physical examination and review of system is consistent with known right lower extremity pathologies.
- Ultrasound was unremarkable, vitals have been stable and blood-work not significant.
- Likely multifactorial, in the setting of:
~ Tear of the anterior superior right acetabular labrum
~ High-grade partial tear of the right gluteus minimus tendon
~ Right partial abductor tear
~ Right greater trochanteric bursitis
~ Mild right hip osteoarthritis
- lumbar radiculopathy likely contributing.
- Seen by orthopedic surgery; injected with 4cc .25% marcaine and 1cc 40mg triamcinolone without complication at the greater trochanter on 09-02-23.
- PT/OT evaluation consistent with improved mobility as of
- Tolerated MADISON well on 09-09-23.
- Back improved, leg still bothersome.
- Able to ambulate now; leg pain comes on if she stands or moves her leg; the pain is very localized now.
- Transition to 40 mg Po daily of prednisone from IV decadron, rapid taper to outpt dose by every 2 days--insulin will need to be followed.
- May need outpt therapy for leg vs ortho input re: surgery for tears
Lumbar spine radiculopathy
- Patient has also noted worsening low back pain.
- Denies numbness or tingling down the leg, bowel or bladder incontinence, or saddle anesthesia.
- MR lumber spine on 09-02-23 noted:
~ 'New moderate to large right foraminal disc superior disc extrusion at L2/L3 causing exiting right L2 nerve root impingement.'
~ 'New moderate-sized left subarticular disc herniation at L2/L3 with both superior and inferior extrusion of a portion of the herniated disc causing severe left lateral recess stenosis and descending left L3 nerve root impingement.'
~ 'Interval increase in moderate to severe central canal stenosis at L2/L3.'
~ Additional known findings of degenerative disc, central canal stenosis, foraminal narrowing, and chronic superior endplate fracture of L1.
- Could be contributing to the current presentation.
- Neurosurgery consult appreciate
- IR consulted for MADISON.
- Aspirin has been held since 09-04-23.
- MADISON performed on 09-09-23; back pain improved.
Giant cell arteritis/Polymyalgia rheumatica
�- Stable.�Continue current prednisone dosing without changes.
�- Hold Actemra while inpatient - resume after discharge.
�- ESR and CRP within normal limits on 09-01-23.
Type II diabetes mellitus with polyneuropathy
�- Cover with SSI as needed.
�- A1C 9.1 on 09-02-23.
�- Continue gabapentin.
- Continue basal bolus protocol adjusting insulin regimen accordingly.
- Now with steroid-induced hyperglycemia as anticipated; weaning off steroids now.
- Adjust insulin dose with increase of Lantus, addition of Premeal short acting insulin increasing basal bolus protocol to high-dose.
Chronic kidney disease, stage 3
�- Stable.�Renal function at / near known baseline.
�- Follow for any changes.
Essential hypertension
�- Stable. Continue outpatient regimen with holding parameters.
Aortic stenosis
- s/p TAVR
�- Stable.�Continue CV med regimen.
Asthma without acute exacerbation
�- Stable.� No active wheezing or complaints of dyspnea.
�- Albuterol PRN if necessary.
Constipation
-make miralax daily not PRN
-add colace
-dulcolax supp PRN
DVT prophylaxis
- Heparin SC.
Code status
- Full.
Anticipated Discharge: Within 24 hours
Subjective/Interval History
-
Date of Service: September 12, 2023
Objective Data
-
Labs:
Laboratory Results
09/12/23
05:26
WBC 17.6 H
Hgb 13.8
Hct 41.5
Plt Count 252
Sodium 133 L
Potassium 4.5
Chloride 103
Carbon Dioxide 25
BUN 44 H
Creatinine 1.4 H
Glucose 176 H
Calcium 8.9
Vital Signs:
Vital Signs
Temp Pulse Resp BP Pulse Ox
97.7 F 63 16 166/83 96
09/12/23 08:00 09/12/23 08:00 09/12/23 08:00 09/12/23 08:00 09/12/23 08:00
I&O
09/11/23 09/12/23 09/13/23
06:59 06:59 06:59
Intake Total 1220 / 1220 1500 / 1500
Balance 1220 / 1220 1500 / 1500
Review of Systems
-
History Source: Patient
Constitutional: Reports No Symptoms
EENT: Reports No Symptoms Reported
Respiratory: Reports No Symptoms
Cardiac: Reports No Symptoms
Abdomen/GI: Reports No Symptoms
Genitourinary: Reports No Symptoms
Musculoskeletal: Reports No Symptoms
Skin: Reports No Symptoms
Neuro: Reports No Symptoms
Endocrine: Reports No Symptoms
Hematologic / Lymphatic: Reports No Symptoms
Allergy / Immunology: Reports No Symptoms
Physical Exam
-
General: No Apparent Distress and Comfortable
HEENT: Normocephalic, Atraumatic, Moist Mucous Membranes and Anicteric
Respiratory: Clear to Auscultation and Non Labored Respirations
Cardiac: Regular Rhythm and S1/S2
GI: Soft, Nontender, Nondistended, Normal Bowel Sounds and No Hepatosplenomegaly
Genito-urinary: No Costovertebral Tender
Musculoskeletal: No Clubbing, No Cyanosis, No Edema and Other (generalized pain from right groin to to the knee; exam unremarkable from below the knee)
Skin: Warm, Dry and IV Access / Catheter Site
Neuro: Awake, Alert, Oriented, No Motor Deficits and No Sensory Deficits
Hematologic / Lymphatic: No Lymphadenopathy
Psych: Calm and Intact Judgement/Insight
--- NOTE | 2023-09-12 13:09 | W.DS.TRANS ---
DC Summary - [employer]
-
Discharge Instructions:
Sleep Apnea Risk Low
Discharge Diagnosis/Procedures * Right lower extremity pain causing ambulatory
dysfunction
* Tear of the anterior superior right acetabular
labrum
* High-grade partial tear of the right gluteus
minimus tendon
* Right greater trochanteric bursitis
* Mild right hip osteoarthritis
* Lumbar spine radiculopathy
Conditions known prior to admission:
* Giant cell arteritis
* Polymyalgia rheumatica
* Type II diabetes mellitus with polyneuropathy
* Chronic kidney disease, stage 3
* Chronic heart failure with preserved ejection
fraction
* Essential hypertension
* Hypercholesterolemia
* Hypothyroidism
* Aortic stenosis
* Asthma without acute exacerbation
* Myasthenia gravis, ocular type
Diet Diabetic, Carb Controlled
Instructions:
Stand-Alone Forms:
Changes to Home Medications: No
Discharge Medications:
DC Medications w/original date entered in [facility]
albuterol sulfate 2.5 mg/3 mL (0.083 %) solution for nebulization 2.5 mg inhalation R Q4HPRN PRN sob 04/14/16
denosumab 60 mg/mL subcutaneous syringe (Prolia) 60 mg SC [id number] Osteoporosis 11/11/21
Lactobac no.2-Bifidobac no.1-S. thermo 112.5 billion cell capsule (High Potency Probiotic) 2 cap PO DAILY #60 caps 11/23/21
albuterol sulfate 90 mcg/actuation aerosol inhaler 2 puff inhalation R Q4HPRN PRN sob ##1 11/23/21
omeprazole 40 mg capsule,delayed release 40 mg PO DAILY stomach #30 caps 11/23/21
aspirin 81 mg tablet,delayed release 81 mg PO DAILY Blood clot prevention/tx 06/01/22
insulin aspart U-100 100 unit/mL (3 mL) subcutaneous pen (Novolog FlexPen U-100 Insulin aspart) 0 sliding scale dose SC AC Diabetes 06/01/22
insulin detemir U-100 100 unit/mL subcutaneous solution (Levemir U-100 Insulin) 0 unit SC .SLIDING SCALE HS Diabetes 06/01/22
cholecalciferol (vitamin D3) 50 mcg (2,000 unit) tablet 2,000 unit PO DAILY suppliment #30 tabs 06/02/22
furosemide 20 mg tablet 20 mg PO DAILY PRN swelling 05/09/23
levothyroxine 75 mcg tablet 75 mcg PO DAILY hypothyroid 05/09/23
lidocaine 4 % topical patch (Aspercreme (lidocaine)) 2 patch topical DAILY PRN Pain 05/09/23
polyethylene glycol 3350 17 gram oral powder packet (Miralax) 17 g PO DAILY PRN constipation 05/09/23
cyanocobalamin (vitamin B-12) 1,000 mcg tablet (Vitamin B-12) 1,000 mcg PO DAILY Supplement 05/10/23
cyclobenzaprine 10 mg tablet 10 mg PO HS PRN moderate pain 05/11/23
acetaminophen 500 mg tablet (Tylenol Extra Strength) 1,000 mg PO TIDPRN PRN mild pain 09/01/23
amlodipine 5 mg tablet 5 mg PO DAILY Blood Pressure 09/01/23
azelastine 137 mcg (0.1 %) nasal spray aerosol 1 spray intranasal BID Allergies 09/01/23
gabapentin 300 mg capsule 300 mg PO HS Neurological Condition 09/01/23
magnesium oxide 500 mg PO Q48H Supplement 09/01/23
metoprolol succinate 50 mg tablet,extended release 24 hr 50 mg PO HS Heart Disease/Condition 09/01/23
prednisone 5 mg tablet 5 mg PO DAILY Anti-Inflammatory 09/01/23
rosuvastatin 10 mg tablet 10 mg PO QPM High Cholesterol 09/01/23
semaglutide 0.25 mg or 0.5 mg (2 mg/3 mL) subcutaneous pen injector (Ozempic) 0.5 mg SC MO Diabetes 09/01/23
tocilizumab 162 mg/0.9 mL subcutaneous pen injector (Actemra ACTPen) 162 mg SC Q2W Giant cell arteritis 09/01/23
propylene glycol 0.6 % eye drops (Systane Complete) 1 drp ophthalmic (eye) TID PRN dry/itchy eyes 09/05/23
docusate sodium 100 mg capsule 100 mg PO BID #30 caps 09/12/23
lidocaine 4 % topical patch 1 patch topical DAILY #30 ea 09/12/23
oxycodone 5 mg tablet 5 mg PO Q4H PRN moderate to severe Pain #30 tabs 09/12/23
Home Medication Changes
Pending Results: No
--- NOTE | 2023-09-12 14:15 | CM ---
Patient has been medically cleared for discharge to home with [facility] and PT services. is transporting home.
== END 2023-09-12 14:25 | disposition home health service (06) | DRG 537 ==
LOC: 2 SOUTH 08:52
PROVIDERS: Internal Medicine; Radiology Vascular & Interventional Radiology; Student in an Organized Health Care Education/Training Program; ADMITTING PHYSICIAN Hospitalist; ATTENDING PHYSICIAN Internal Medicine; CONSULT PHYSICIAN Neurological Surgery; CONSULT PHYSICIAN Orthopaedic Surgery; EMERGENCY PHYSICIAN Emergency Medicine; FAMILY PHYSICIAN Family Medicine; OTHER PHYSICIAN Physician Assistant Surgical
PROC: 3E0R33Z Introduction of Anti-inflammatory into Spinal Canal, Percutaneous Approach (ICD-10-PCS; 2023-09-09)
DX: S76.011A Strain of muscle, fascia and tendon of right hip, initial encounter (principal); I13.0 Hypertensive heart and chronic kidney disease with heart failure and stage 1 through stage 4 chronic kidney disease, or unspecified chronic kidney disease; I50.32 Chronic diastolic (congestive) heart failure; X58.XXXA Exposure to other specified factors, initial encounter; M51.16 Intervertebral disc disorders with radiculopathy, lumbar region; E11.65 Type 2 diabetes mellitus with hyperglycemia; T38.0X5A Adverse effect of glucocorticoids and synthetic analogues, initial encounter; M31.5 Giant cell arteritis with polymyalgia rheumatica; N18.30 Chronic kidney disease, stage 3 unspecified; E03.9 Hypothyroidism, unspecified; I35.0 Nonrheumatic aortic (valve) stenosis; J45.909 Unspecified asthma, uncomplicated; M70.61 Trochanteric bursitis, right hip; G70.00 Myasthenia gravis without (acute) exacerbation; Z79.4 Long term (current) use of insulin; Z79.84 Long term (current) use of oral hypoglycemic drugs; Z79.82 Long term (current) use of aspirin
CPT/HCPCS: 62323; 72148; 80048; 80053; 82550; 82947; 82962; 83036; 83735; 85025; 85027; 85610; 85652; 86140; 93971; 96374; 96375; 97116; 97162; 97166; 97530; 97535; 99285

== ENCOUNTER 2023-11-08 06:16 | Outpatient (RCR) | payer MEDICARE, OTHER, SELFPAY | END 2023-11-08 23:59 | disposition home or self-care (01) | LOC: RPT 06:16 | PROVIDERS: ATTENDING PHYSICIAN Psychiatry & Neurology Neurology; FAMILY PHYSICIAN Family Medicine | DX: M54.16 Radiculopathy, lumbar region (principal); R26.89 Other abnormalities of gait and mobility; Z73.6 Limitation of activities due to disability | CPT/HCPCS: 97110; 97162 ==

== ENCOUNTER → 2023-11-09 11:21 | Outpatient (REF) | payer MEDICARE, OTHER, SELFPAY ==
[2023-11-09 13:19] LABS: Erythrocyte Sed Rate 10 mm/hour (0-20)
[2023-11-09 13:31] LABS: C-Reactive Protein < 5.00 mg/L (0.0-10.00)
== END ==
LOC: REG 11:21
PROVIDERS: ATTENDING PHYSICIAN Internal Medicine Rheumatology; FAMILY PHYSICIAN Family Medicine; OTHER PHYSICIAN Ophthalmology; REFERRING PHYSICIAN Internal Medicine Cardiovascular Disease
DX: E78.5 Hyperlipidemia, unspecified (principal); E83.52 Hypercalcemia; M31.5 Giant cell arteritis with polymyalgia rheumatica; M81.0 Age-related osteoporosis without current pathological fracture; Z68.33 Body mass index [BMI] 33.0-33.9, adult; Z79.899 Other long term (current) drug therapy
CPT/HCPCS: 36415; 85652; 86140

== ENCOUNTER → 2023-11-30 11:07 | Outpatient (REF) | payer MEDICARE, OTHER, SELFPAY | LOC: RCS 11:07 | PROVIDERS: ATTENDING PHYSICIAN Internal Medicine Cardiovascular Disease; FAMILY PHYSICIAN Family Medicine | DX: I34.0 Nonrheumatic mitral (valve) insufficiency (principal); I35.0 Nonrheumatic aortic (valve) stenosis | CPT/HCPCS: 93306 ==

== ENCOUNTER 2023-12-08 09:46 | Outpatient (RCR) | payer MEDICARE, OTHER, SELFPAY | END 2023-12-08 23:59 | disposition home or self-care (01) | LOC: RPT 09:46 | PROVIDERS: ATTENDING PHYSICIAN Psychiatry & Neurology Neurology; FAMILY PHYSICIAN Family Medicine | DX: R26.89 Other abnormalities of gait and mobility (principal); M54.16 Radiculopathy, lumbar region; Z73.6 Limitation of activities due to disability | CPT/HCPCS: 97010; 97110 ==

== ENCOUNTER → 2023-12-16 10:08 | Outpatient (REF) | payer MEDICARE, OTHER, SELFPAY ==
[2023-12-16 11:10] LABS: % Basophils 0.7 % (0-2); % Eosinophils 1.5 % (0-6); % Immature Granulocytes 0.3 % (0-0.5); % Lymphocytes 25.3 % (20.5-51.1); % Monocytes 8.9 % (1.7-9.3); % Neutrophils 63.3 % (42.2-75.2); Absolute Basophils 0.1 10^3/uL (0-0.2); Absolute Eosinophils 0.2 10^3/uL (0-0.7); Absolute Lymphocytes 2.9 10^3/uL (1.2-3.4); Absolute Neutrophils 7.3 10^3/uL (1.4-6.5); Hematocrit 44.6 % (37.0-47.0); Hemoglobin 14.7 g/dL (12.0-16.0); Mean Corpuscular Hgb 30.2 pg (27.0-31.0); Mean Corpuscular Volume 91.6 fL (81.0-99.0); Mean Platelet Volume 9.7 fL (7.4-10.4); Nucleated Red Blood Cells % 0 %; Platelet Count 268 10^3/uL (130-400); Red Blood Cell Count 4.87 10^6/uL (4.20-5.40); Red Cell Dist. Width 13.2 % (11.5-14.5); White Blood Cell Count 11.5 10^3/uL (4.8-10.8)
[2023-12-16 11:41] LABS: Erythrocyte Sed Rate 2 mm/hour (0-20)
[2023-12-16 12:33] LABS: C-Reactive Protein < 5.00 mg/L (0.0-10.00)
[2023-12-16 12:35] LABS: ALT (SGPT) 20 U/L (0-35); AST (SGOT) 28 U/L (14-36); Albumin 4.5 g/dl (3.5-5.0); Alkaline Phosphatase 72 U/L (38-126); Blood Urea Nitrogen 27 mg/dl (7-17); Calcium 9.7 mg/dl (8.4-10.2); Carbon Dioxide 31 mmol/L (22-30); Chloride 97 mmol/L (98-107); Glucose 180 mg/dl (70-99); Potassium 3.6 mmol/L (3.5-5.1); Sodium 138 mmol/L (135-145); Total Bilirubin 0.6 mg/dl (0.2-1.3); Total Protein 6.7 g/dl (6.3-8.2); eGFR 34.58
== END ==
LOC: REG 10:08
PROVIDERS: ATTENDING PHYSICIAN Internal Medicine Rheumatology; FAMILY PHYSICIAN Family Medicine; OTHER PHYSICIAN Internal Medicine Endocrinology, Diabetes & Metabolism; OTHER PHYSICIAN Ophthalmology; OTHER PHYSICIAN Psychiatry & Neurology Neurology; REFERRING PHYSICIAN Internal Medicine Cardiovascular Disease
DX: E78.5 Hyperlipidemia, unspecified (principal); E83.52 Hypercalcemia; M31.5 Giant cell arteritis with polymyalgia rheumatica; M79.604 Pain in right leg; M81.0 Age-related osteoporosis without current pathological fracture; Z79.52 Long term (current) use of systemic steroids; Z79.899 Other long term (current) drug therapy
CPT/HCPCS: 36415; 80053; 85025; 85652; 86140

== ENCOUNTER 2024-01-03 13:12 | Outpatient (RCR) | payer MEDICARE, OTHER, SELFPAY | END 2024-01-03 23:59 | disposition home or self-care (01) | LOC: RPT 13:12 | PROVIDERS: ATTENDING PHYSICIAN Psychiatry & Neurology Neurology; FAMILY PHYSICIAN Family Medicine | DX: M54.16 Radiculopathy, lumbar region (principal); Z73.6 Limitation of activities due to disability; R26.89 Other abnormalities of gait and mobility | CPT/HCPCS: 97010; 97110 ==

== ENCOUNTER 2024-01-18 14:59 | Outpatient (RCR) | payer MEDICARE, OTHER, SELFPAY | END 2024-01-18 23:59 | disposition home or self-care (01) | LOC: RPT 14:59 | PROVIDERS: ATTENDING PHYSICIAN Psychiatry & Neurology Neurology; FAMILY PHYSICIAN Family Medicine | DX: M54.16 Radiculopathy, lumbar region (principal); Z73.6 Limitation of activities due to disability; R26.89 Other abnormalities of gait and mobility | CPT/HCPCS: 97010; 97110 ==

== ENCOUNTER → 2024-01-19 10:30 | Outpatient (REF) | payer MEDICARE, OTHER, SELFPAY ==
[2024-01-19 11:28] LABS: % Eosinophils 1.9 % (0-6); % Immature Granulocytes 0.5 % (0-0.5); % Lymphocytes 21.7 % (20.5-51.1); % Monocytes 9.1 % (1.7-9.3); % Neutrophils 65.8 % (42.2-75.2); Absolute Basophils 0.1 10^3/uL (0-0.2); Absolute Eosinophils 0.2 10^3/uL (0-0.7); Absolute Immature Granulocytes 0.1 10^3/uL (0-0.05); Absolute Lymphocytes 2.3 10^3/uL (1.2-3.4); Absolute Neutrophils 6.9 10^3/uL (1.4-6.5); Hematocrit 40.5 % (37.0-47.0); Hemoglobin 13.3 g/dL (12.0-16.0); Mean Corp Hgb Conc. 32.8 g/dL (33.0-37.0); Mean Corpuscular Hgb 30.6 pg (27.0-31.0); Mean Corpuscular Volume 93.1 fL (81.0-99.0); Mean Platelet Volume 9.6 fL (7.4-10.4); Nucleated Red Blood Cells % 0 %; Platelet Count 257 10^3/uL (130-400); Red Blood Cell Count 4.35 10^6/uL (4.20-5.40); White Blood Cell Count 10.5 10^3/uL (4.8-10.8)
[2024-01-19 11:39] LABS: ALT (SGPT) 14 U/L (0-35); AST (SGOT) 20 U/L (14-36); Albumin 3.8 g/dl (3.5-5.0); Alkaline Phosphatase 64 U/L (38-126); Blood Urea Nitrogen 22 mg/dl (7-17); Calcium 9.2 mg/dl (8.4-10.2); Carbon Dioxide 27 mmol/L (22-30); Chloride 104 mmol/L (98-107); Glucose 196 mg/dl (70-99); HDL Cholesterol 66 mg/dl; LDL Cholesterol, Calculated 52 mg/dl; Sodium 137 mmol/L (135-145); Total Bilirubin 0.6 mg/dl (0.2-1.3); Total Cholesterol 147 mg/dl (50-199); Total Protein 5.9 g/dl (6.3-8.2); Triglyceride 148 mg/dl (10-149); Very Low Density Lipoprotein 29 mg/dl (0-30); eGFR 37.56
[2024-01-19 11:54] LABS: Vitamin D, 25-OH*** 38.5 ng/mL (30-80)
[2024-01-19 12:07] LABS: TSH Reflex To Free T4 1.11 uIU/ml (0.47-4.68)
[2024-01-19 13:05] LABS: Glycohemoglobin (HgbA1c) 8.7 % (4.0-5.6)
[2024-01-19 13:40] LABS: Intact PTH 73.3 pg/ml (13.6-85.8)
== END ==
LOC: REG 10:30
PROVIDERS: ATTENDING PHYSICIAN Internal Medicine Endocrinology, Diabetes & Metabolism; FAMILY PHYSICIAN Family Medicine; OTHER PHYSICIAN Internal Medicine Rheumatology; OTHER PHYSICIAN Ophthalmology; OTHER PHYSICIAN Psychiatry & Neurology Neurology; REFERRING PHYSICIAN Internal Medicine Cardiovascular Disease
DX: N18.32 Chronic kidney disease, stage 3b (principal); M31.6 Other giant cell arteritis; E11.40 Type 2 diabetes mellitus with diabetic neuropathy, unspecified; E78.2 Mixed hyperlipidemia; E03.9 Hypothyroidism, unspecified; E55.9 Vitamin D deficiency, unspecified; M81.0 Age-related osteoporosis without current pathological fracture
CPT/HCPCS: 36415; 80053; 80061; 82306; 83036; 83970; 84443; 85025

== ENCOUNTER → 2024-02-02 15:20 | Outpatient (REF) | payer MEDICARE, OTHER, SELFPAY ==
[2024-02-02 16:55] LABS: Erythrocyte Sed Rate 12 mm/hour (0-20)
== END ==
LOC: REG 15:20
PROVIDERS: ATTENDING PHYSICIAN Psychiatry & Neurology Neurology; FAMILY PHYSICIAN Internal Medicine Rheumatology
DX: R70.0 Elevated erythrocyte sedimentation rate (principal)
CPT/HCPCS: 36415; 85652

== ENCOUNTER → 2024-02-23 12:48 | Outpatient (REF) | payer MEDICARE, OTHER, SELFPAY | LOC: RAD 12:48 | PROVIDERS: ATTENDING PHYSICIAN Internal Medicine Cardiovascular Disease; FAMILY PHYSICIAN Family Medicine | DX: I65.21 Occlusion and stenosis of right carotid artery (principal) | CPT/HCPCS: 93880 ==

== ENCOUNTER → 2024-02-24 09:24 | Outpatient (REF) | payer MEDICARE, OTHER, SELFPAY ==
[2024-02-24 10:48] LABS: Hematocrit 41.3 % (37.0-47.0); Hemoglobin 13.2 g/dL (12.0-16.0); Mean Corpuscular Hgb 28.9 pg (27.0-31.0); Mean Corpuscular Volume 90.4 fL (81.0-99.0); Mean Platelet Volume 9.6 fL (7.4-10.4); Platelet Count 313 10^3/uL (130-400); Red Blood Cell Count 4.57 10^6/uL (4.20-5.40); Red Cell Dist. Width 13.1 % (11.5-14.5); White Blood Cell Count 7.2 10^3/uL (4.8-10.8)
[2024-02-24 11:26] LABS: ALT (SGPT) 13 U/L (0-35); AST (SGOT) 25 U/L (14-36); Albumin 3.7 g/dl (3.5-5.0); Alkaline Phosphatase 57 U/L (38-126); Blood Urea Nitrogen 20 mg/dl (7-17); Calcium 9.5 mg/dl (8.4-10.2); Carbon Dioxide 27 mmol/L (22-30); Chloride 100 mmol/L (98-107); Glucose 176 mg/dl (70-99); Potassium 3.7 mmol/L (3.5-5.1); Sodium 136 mmol/L (135-145); Total Bilirubin 0.4 mg/dl (0.2-1.3); Total Protein 5.7 g/dl (6.3-8.2); eGFR 37.56
[2024-02-24 13:07] VITALS: BMI 32.2
== END ==
LOC: SDSPAT 09:24
PROVIDERS: ATTENDING PHYSICIAN Orthopaedic Surgery Orthopaedic Surgery of the Spine; FAMILY PHYSICIAN Family Medicine; OTHER PHYSICIAN Internal Medicine Cardiovascular Disease; OTHER PHYSICIAN Internal Medicine Endocrinology, Diabetes & Metabolism; OTHER PHYSICIAN Psychiatry & Neurology Neurology
DX: Z01.818 Encounter for other preprocedural examination (principal)
CPT/HCPCS: 36415; 80053; 85027; 87070

== ENCOUNTER 2024-03-07 06:00 | Day surgery (SDC) | payer MEDICARE, OTHER, SELFPAY ==
[2024-02-27 13:32] VITALS: BMI 32.2
[2024-02-27 13:33] VITALS: BMI 32.2
[2024-03-07] VITALS (10 sets, daily range): BP systolic 97–160; BP diastolic 37–122; BMI 32.1
[2024-03-07 09:07] LABS: Glucose - Point of Care 132 mg/dl (70-99)
[2024-03-07] MEDS: LYRICA 150 MG PO (09:53)
[2024-03-07] MEDS: NORMOSOL-R/PLASMALYTE-A 1000 IV (09:54)
[2024-03-07] MEDS: SKELAXIN 800 MG PO (09:54)
[2024-03-07] MEDS: TYLENOL 1000 MG PO (09:54)
[2024-03-07] MEDS: VANCOCIN 200 IV (10:08)
[2024-03-07 11:21] LABS: Glucose - Point of Care 164 mg/dl (70-99)
[2024-03-07] MEDS: MORPHINE SULFATE 1 MG IV ×2 (13:21→13:31)
== END 2024-03-07 15:07 | disposition home or self-care (01) ==
LOC: SDS 06:00
PROVIDERS: ATTENDING PHYSICIAN Orthopaedic Surgery Orthopaedic Surgery of the Spine
DX: M48.061 Spinal stenosis, lumbar region without neurogenic claudication (principal); M51.26 Other intervertebral disc displacement, lumbar region
CPT/HCPCS: 63030; 72020; 82962

== ENCOUNTER 2024-03-29 12:13 | Emergency (ER) | payer MEDICARE, OTHER, SELFPAY ==
[2024-03-29 12:15] VITALS: BP 137/76
[2024-03-29 12:33] LABS: % Immature Granulocytes 0.2 % (0-0.5); % Lymphocytes 20.2 % (20.5-51.1); % Monocytes 11.8 % (1.7-9.3); % Neutrophils 61.8 % (42.2-75.2); Absolute Basophils 0.1 10^3/uL (0-0.2); Absolute Eosinophils 0.4 10^3/uL (0-0.7); Absolute Lymphocytes 1.7 10^3/uL (1.2-3.4); Hematocrit 39.4 % (37.0-47.0); Hemoglobin 12.7 g/dL (12.0-16.0); Mean Corp Hgb Conc. 32.2 g/dL (33.0-37.0); Mean Corpuscular Hgb 28.4 pg (27.0-31.0); Mean Corpuscular Volume 88.1 fL (81.0-99.0); Nucleated Red Blood Cells % 0 %; Platelet Count 481 10^3/uL (130-400); Red Blood Cell Count 4.47 10^6/uL (4.20-5.40); Red Cell Dist. Width 13.2 % (11.5-14.5); White Blood Cell Count 8.2 10^3/uL (4.8-10.8)
[2024-03-29 12:45] LABS: ALT (SGPT) 11 U/L (0-35); AST (SGOT) 20 U/L (14-36); Albumin 3.7 g/dl (3.5-5.0); Alkaline Phosphatase 109 U/L (38-126); Blood Urea Nitrogen 13 mg/dl (7-17); Calcium 9.1 mg/dl (8.4-10.2); Carbon Dioxide 22 mmol/L (22-30); Chloride 101 mmol/L (98-107); Glucose 176 mg/dl (70-99); Potassium 4.1 mmol/L (3.5-5.1); Sodium 138 mmol/L (135-145); Total Bilirubin 0.5 mg/dl (0.2-1.3); Total Protein 6.1 g/dl (6.3-8.2); eGFR 49.86
[2024-03-29 13:18] VITALS: BMI 31.7
[2024-03-29 13:27] VITALS: BP 133/62
--- NOTE | 2024-03-29 14:21 | ED.GENMED ---
History of Present Illness
General
Chief Complaint: Abdominal Pain
Source: patient and family
Exam Limitations: none
Time Seen by Provider: 03/29/24 13:04
Nursing documentation reviewed up to this point in time: agreed with
History of Present Illness
History of Present Illness:
84-year-old female past medical history of previous A-fib, CHF hypertension hyperlipidemia CKD diabetes presenting to the emergency department today with concerns of left lower quadrant abdominal pain worsening over the past few days. Has had some
intermittent pain over the past few months. Denies any fever chest pain shortness of breath. Denies significant changes in bowel movements.
Past History
Past History
ED Past Medical History: Arrthythmia, HTN, Hypercholesterolemia, NIDDM, Hypothyroidism and Other (Rheumatic Heart Disease, temporal arteritis, diabetes, aortic stenosis, ocular myasthenia gravis)
ED Past Surgical History: Cardiac, Gynecological (Tubal ligation) and Tonsilectomy
Social History
Tobacco: Non-smoker
Alcohol: Occasional
Drug: None
Personal:
Living: with family
Employment: Retired
Family History
Family History: Other (Reviewed and non-contributory)
Review of Systems
Review of Systems
Allergies reviewed?: Yes
All Other Systems: ROS reviewed and negative except as documented in HPI and ROS
Phy Exam
Physical Exam
Physical Exam:
GENERAL: Alert , in no apparent distress
EYE: pupils equal and reactive
NECK: Supple, no significant adenopathy.
ENT: o/p clr, mmm.
CARDIAC: Regular rate and rhythm .
LUNGS: Clear breath sounds bilaterally, no acute respiratory distress, no wheezes/rales/rhonchi
ABDOMEN: Left lower quadrant abdominal pain otherwise soft benign abdomen
NEUROLOGICAL: Alert and oriented, no focal neuro deficits
SKIN: Warm and dry, skin intact.
MUSCULOSKELETAL: No edema, well perfused.
PSYCH: Normal and appropriate interaction.
Course
Orders/Labs/Results
Orders:
Orders
03/29/24 12:21
Complete Blood Count/With Diff Urgent
Comprehensive Metabolic Panel Urgent
03/29/24 13:15
CT Abd/Pel (IV only)-DH only Urgent
Comment:
Reason For Exam: llq pain
03/29/24 15:09
Urinalysis Reflex To Culture Urgent
Date Specimen was Collected: 03/29/24
Time Specimen was Collected: 14:00
Urine Microscopic Reflex Cult Urgent
Urine Culture Urgent
IMAN Source: U
Specimen Description:
Date Specimen was Collected: 03/29/24
Time Specimen was Collected: 14:00
Abnormal Lab Results
03/29/24 03/29/24
12:21 15:09
MCHC 32.2 L g/dL
(33.0-37.0)
Plt Count 481 H 10^3/uL
(130-400)
Absolute Monos (auto) 1.0 H 10^3/uL
(0.1-0.6)
Lymphocytes % 20.2 L %
(20.5-51.1)
Monocytes % 11.8 H %
(1.7-9.3)
Creatinine 1.1 H mg/dL
(0.6-1.0)
Glucose 176 H mg/dl
(70-99)
Total Protein 6.1 L g/dl
(6.3-8.2)
Leukocyte Esterase Rfl 2+ A
(Negative)
Urine WBC (Reflex) >100 A /HPF
(0-5)
Urine Bacteria (Reflex) Few A
(Negative)
03/29/24 12:21
03/29/24 12:21
Vital Signs
Initial and Last Documented VS:
Initial Vital Signs
Temp Pulse Resp BP Pulse Ox
98.1 F 77 18 137/76 95
03/29/24 12:15 03/29/24 12:15 03/29/24 12:15 03/29/24 12:15 03/29/24 12:15
Last Documented Vital Signs
Temp Pulse Resp BP Pulse Ox
98.1 F 79 29 154/70 93
03/29/24 12:15 03/29/24 16:00 03/29/24 16:00 03/29/24 16:00 03/29/24 16:00
MDM/Problems Addressed
MDM/Problems Addressed:
84-year-old female presenting to the emergency department today with concerns of left lower quadrant abdominal pain worsening over the past few days. Intermittent over the past few months. Upon arrival vital signs are normal patient in no obvious
distress does have reproducible pain to the left lower quadrant plan for CT scan for further assessment. CT without emergent findings. Patient well-appearing throughout ER stay vital signs normal. Stable for outpatient follow-up with GI. Return
precautions given.
*Critical Care Note
Total Time (30-74mins, 75-104mins- exclusive of procedures): Not Applicable
ED Attending Note
-
Portions of this chart may have been created with voice recognition software.� Occasional wrong word or��sound alike� substitutions may have occurred due to the inherent limitations of voice recognition software.
Discharge Plan
Departure
Patient Disposition: Home (Routine Discharge)
Date of Disposition: 03/29/24
Time of Disposition: 15:38
Patient with high blood pressure during this ER visit?: No
Condition: Good
Covid-19: Not Applicable
Discharge Problem:
Abdominal pain
Instructions: Abdominal Pain
Prescriptions:
No Action
albuterol sulfate 2.5 MG/3 ML solution for nebulization
2.5 mg inhalation R Q4HPRN PRN (Reason: sob)
Prolia 60 MG/ML syringe
60 mg SC [id number]
Levemir U-100 Insulin 100 unit/mL Solution
0 unit SC DIRECTED
Patient Comments:
also adjusts doses based on blood sugar- Hold for BS < 200
insulin aspart U-100 [Novolog FlexPen U-100 Insulin] 300 UNITS/3 ML insulin pen
0 sliding scale dose SC AC
aspirin 81 mg Tablet,Delayed Release (Dr/Ec)
81 mg PO DAILY
lidocaine [Aspercreme (lidocaine)] 1 PATCH adhesive patch,medicated
2 patch topical DAILY PRN (Reason: Pain)
levothyroxine 75 MCG tablet
75 mcg PO MOTUWETHFRSA
furosemide 20 MG tablet
20 mg PO DAILY PRN (Reason: swelling)
cyanocobalamin (vitamin B-12) [Vitamin B-12] 1,000 mcg Tablet
2,000 mcg PO DAILY
metoprolol succinate 50 mg tablet extended release 24 hr
50 mg PO QPM
gabapentin 300 mg Capsule
300 mg PO HS
azelastine 137 mcg (0.1 %) aerosol,spray
2 spray INTRANASAL BID
rosuvastatin 10 mg Tablet
10 mg PO QPM
Actemra ACTPen 162 mg/0.9 mL pen injector
162 mg SC Q2W
Ozempic 0.25 mg or 0.5 mg (2 mg/3 mL) pen injector
1 mg SC MO
acetaminophen [Tylenol Extra Strength] 500 MG tablet
1,000 mg PO TIDPRN PRN (Reason: mild pain)
magnesium oxide 500 MG tablet
500 mg PO PRN PRN (Reason: Constipation)
Systane Complete 0.6 % Drops
1 drp OPHTHALMIC (EYE) TID PRN (Reason: dry/itchy eyes)
cyclobenzaprine [Flexeril] 10 mg Tablet
10 mg PO PRN PRN (Reason: Spasms)
polyethylene glycol 3350 [Miralax] 17 gram Powder In Packet
17 g PO DAILY
prednisone 1 mg Tablet
2 mg PO DAILY
budesonide [Pulmicort] 0.5 mg/2 mL Suspension For Nebulization
0.5 mg INHALATION PRN PRN (Reason: SOB, Wheezes)
dicyclomine [Bentyl] 10 mg Capsule
10 mg PO PRN PRN (Reason: Stomach Cramps)
Probiotic
2 cap PO DAILY
oxycodone 5 mg tablet
5 mg PO Q6H
cholecalciferol (vitamin D3) 2,000 UNITS tablet
4,000 unit PO DAILY
albuterol sulfate 1 PUFF HFA aerosol inhaler
2 puff inhalation R Q4HPRN PRN (Reason: sob) Qty: 1 0RF
omeprazole 40 MG capsule,delayed release(DR/EC)
40 mg PO DAILY Qty: 30 0RF
Referrals:
Russ Manzo Jr., DO [Family Provider] -
Galina Rush DO [Active] - Follow up in 5-7 days
Activity Restrictions/Additional Instructions:
You came to the emergency department today for concerns of lower abdominal pain. Here you had a reassuring assessment. Please follow closely with GI. Return to the emergency department any worsening, new or concerning symptoms.
Interventions
Interventions:
*Risk Screen - Suicide Last Done: 03/29/24 12:15
*General Assessment Last Done: 03/29/24 12:15
*Neglect/Abuse Screening Last Done: 03/29/24 12:15
ED- Fall Risk Assessment Last Done: 03/29/24 14:07
*ED COVID-19 Vaccine History Last Done: 03/29/24 13:18
*Nursing Disposition Last Done: 03/29/24 16:14
GM-Uzycfn-Nyimsafdow Assessment Last Done: 03/29/24 14:06
Discharge Date and Time
Discharge Date/Time: 03/29/24 16:17
Print Language: GERMAN
[2024-03-29 15:08] VITALS: BP 179/92
[2024-03-29 15:31] LABS: Urine Albumin Negative (Neg - Trace); Urine Bilirubin Negative (Negative); Urine Character Clear (Clear); Urine Color Yellow; Urine Glucose Negative (Negative); Urine Ketone Negative (Negative); Urine Leukocyte 2+ (Negative); Urine Nitrite Negative (Negative); Urine Occult Blood Negative (Negative); Urine Specific Gravity 1.005 (<1.030); Urine Urobilinogen Negative (Neg - 1+); Urine pH 6.5 (5.0-9.0)
[2024-03-29 15:55] LABS: Urine Bacteria Few (Negative); Urine Red Blood Cell 0-2 /HPF (0-2); Urine White Cell >100 /HPF (0-5)
[2024-03-29 16:00] VITALS: BP 154/70
== END 2024-03-29 16:17 | disposition home or self-care (01) ==
LOC: EMR 12:13
PROVIDERS: Emergency Medicine; Physician Assistant; EMERGENCY PHYSICIAN Student in an Organized Health Care Education/Training Program; FAMILY PHYSICIAN Family Medicine
DX: R10.32 Left lower quadrant pain (principal); I48.91 Unspecified atrial fibrillation; I13.0 Hypertensive heart and chronic kidney disease with heart failure and stage 1 through stage 4 chronic kidney disease, or unspecified chronic kidney disease; N18.9 Chronic kidney disease, unspecified; E78.00 Pure hypercholesterolemia, unspecified; I50.9 Heart failure, unspecified
CPT/HCPCS: 99285; 74177; 80053; 81003; 81015; 85025; 87086; Q9967

== ENCOUNTER 2024-05-08 06:26 | Outpatient (RCR) | payer MEDICARE, OTHER, SELFPAY | END 2024-05-08 23:59 | disposition home or self-care (01) | LOC: RPT 06:26 | PROVIDERS: ATTENDING PHYSICIAN Orthopaedic Surgery Orthopaedic Surgery of the Spine; FAMILY PHYSICIAN Family Medicine | DX: M51.26 Other intervertebral disc displacement, lumbar region (principal); R26.89 Other abnormalities of gait and mobility; Z98.890 Other specified postprocedural states; Z73.6 Limitation of activities due to disability | CPT/HCPCS: 97010; 97110; 97140; 97162 ==

== ENCOUNTER 2024-06-04 09:58 | Outpatient (RCR) | payer MEDICARE, OTHER, SELFPAY | END 2024-06-04 23:59 | disposition home or self-care (01) | LOC: RPT 09:58 | PROVIDERS: ATTENDING PHYSICIAN Orthopaedic Surgery Orthopaedic Surgery of the Spine; FAMILY PHYSICIAN Family Medicine | DX: M51.26 Other intervertebral disc displacement, lumbar region (principal); R26.89 Other abnormalities of gait and mobility; Z98.890 Other specified postprocedural states; Z73.6 Limitation of activities due to disability | CPT/HCPCS: 97010; 97110 ==

== ENCOUNTER → 2024-06-05 12:10 | Outpatient (REF) | payer MEDICARE, OTHER, SELFPAY ==
[2024-06-05 14:04] LABS: % Basophils 1.5 % (0-2); % Eosinophils 4.4 % (0-6); % Immature Granulocytes 0.1 % (0-0.5); % Lymphocytes 30.2 % (20.5-51.1); % Monocytes 10.4 % (1.7-9.3); % Neutrophils 53.4 % (42.2-75.2); Absolute Basophils 0.1 10^3/uL (0-0.2); Absolute Eosinophils 0.3 10^3/uL (0-0.7); Absolute Lymphocytes 2.3 10^3/uL (1.2-3.4); Absolute Monocytes 0.8 10^3/uL (0.1-0.6); Hematocrit 43.1 % (37.0-47.0); Hemoglobin 13.5 g/dL (12.0-16.0); Mean Corp Hgb Conc. 31.3 g/dL (33.0-37.0); Mean Corpuscular Hgb 27.6 pg (27.0-31.0); Mean Corpuscular Volume 88.1 fL (81.0-99.0); Mean Platelet Volume 9.9 fL (7.4-10.4); Nucleated Red Blood Cells % 0 %; Platelet Count 282 10^3/uL (130-400); Red Blood Cell Count 4.89 10^6/uL (4.20-5.40); Red Cell Dist. Width 13.9 % (11.5-14.5); White Blood Cell Count 7.6 10^3/uL (4.8-10.8)
[2024-06-05 14:23] LABS: C-Reactive Protein < 5.00 mg/L (0.0-10.00)
[2024-06-05 14:27] LABS: NT-proBNP 2050 pg/ml
[2024-06-05 14:28] LABS: ALT (SGPT) 14 U/L (0-35); AST (SGOT) 24 U/L (14-36); Albumin 3.9 g/dl (3.5-5.0); Alkaline Phosphatase 62 U/L (38-126); Blood Urea Nitrogen 20 mg/dl (7-17); Calcium 9.1 mg/dl (8.4-10.2); Carbon Dioxide 24 mmol/L (22-30); Chloride 107 mmol/L (98-107); Glucose 158 mg/dl (70-99); HDL Cholesterol 67 mg/dl; LDL Cholesterol, Calculated 54 mg/dl; Phosphorus 3.3 mg/dl (2.5-4.5); Potassium 4.3 mmol/L (3.5-5.1); Sodium 142 mmol/L (135-145); Total Bilirubin 0.6 mg/dl (0.2-1.3); Total Cholesterol 148 mg/dl (50-199); Total Protein 6.2 g/dl (6.3-8.2); Triglyceride 137 mg/dl (10-149); Very Low Density Lipoprotein 27 mg/dl (0-30); eGFR 44.91
[2024-06-05 14:53] LABS: TSH Reflex To Free T4 1.17 uIU/ml (0.47-4.68)
[2024-06-05 14:55] LABS: Erythrocyte Sed Rate 8 mm/hour (0-20)
[2024-06-06 09:30] LABS: Glycohemoglobin (HgbA1c) 8.1 % (4.0-5.6)
== END ==
LOC: REG 12:10
PROVIDERS: ATTENDING PHYSICIAN Internal Medicine Rheumatology; FAMILY PHYSICIAN Family Medicine; OTHER PHYSICIAN Internal Medicine Cardiovascular Disease; OTHER PHYSICIAN Internal Medicine Endocrinology, Diabetes & Metabolism; OTHER PHYSICIAN Specialist
DX: N18.32 Chronic kidney disease, stage 3b (principal); M31.6 Other giant cell arteritis; E11.40 Type 2 diabetes mellitus with diabetic neuropathy, unspecified; E78.2 Mixed hyperlipidemia; I87.2 Venous insufficiency (chronic) (peripheral); N18.30 Chronic kidney disease, stage 3 unspecified; M31.5 Giant cell arteritis with polymyalgia rheumatica; M81.0 Age-related osteoporosis without current pathological fracture; Z68.33 Body mass index [BMI] 33.0-33.9, adult; Z79.52 Long term (current) use of systemic steroids; Z79.899 Other long term (current) drug therapy
CPT/HCPCS: 36415; 80053; 80061; 83036; 83880; 84100; 84443; 85025; 85652; 86140

== ENCOUNTER 2024-06-16 10:54 | Emergency (ER) | payer MEDICARE, OTHER, SELFPAY ==
[2024-06-16 11:11] VITALS: BP 195/87
--- NOTE | 2024-06-16 11:12 | ED.GENMED ---
History of Present Illness
General
Chief Complaint: Abdominal Pain
Source: patient
Exam Limitations: none
Time Seen by Provider: 06/16/24 11:02
Nursing documentation reviewed up to this point in time: agreed with
History of Present Illness
History of Present Illness:
Patient is an 84-year-old female who presents to the ER complaining of sudden right flank pain that rates to her right groin that woke her up at 1 AM. She has nauseous and has vomited with this. Triage note initially reports she had diarrhea but
she reports that she did not have diarrhea she moved her bowels and they were formed. She has no prior history kidney stone she had oxycodone at home and took it at 4 AM along with Flexeril without relief.
She denies any recent fever or chills.
Past History
Past History
ED Past Medical History: Arrthythmia, HTN, Hypercholesterolemia, NIDDM, Hypothyroidism and Other (Rheumatic Heart Disease, temporal arteritis, diabetes, aortic stenosis, ocular myasthenia gravis)
ED Past Surgical History: Cardiac, Gynecological (Tubal ligation) and Tonsilectomy
Social History
Tobacco: Non-smoker
Alcohol: Occasional
Drug: None
Personal:
Living: with family
Employment: Retired
Family History
Family History: Other (Reviewed and non-contributory)
Review of Systems
Review of Systems
Allergies reviewed?: Yes
All Other Systems: ROS reviewed and negative except as documented in HPI and ROS
Constitutional: Reports no symptoms; Denies fever, fatigue or chills
Respiratory: Reports no symptoms
Cardiac: Reports no symptoms
ABD/GI: Reports nausea and vomiting; Denies diarrhea or constipated
: Reports no symptoms; Denies frequency, incontinence, difficulty voiding, urgency or discharge
Musculoskeletal: Reports other (right back/flank pain )
Skin: Reports no symptoms
Neurological: Reports no symptoms
Psychiatric: Reports no symptoms
Phy Exam
General Physical Exam
General Presentation: no apparent distress
General age: appears stated age
General Skin: warm and dry
General Habitus: elderly
General Mental: alert
General Hydration: appears well hydrated
Cardiovascular Exam
Cardiovascular Exam: regular rate/rhythm, no murmur and normal peripheral pulses
Pulmonary Exam
Pulmonary Exam: lungs clear and no respiratory distress
Gastrointestinal Exam
Gastrointestinal Exam: normal bowel sounds, non tender and soft
Neurological Exam
Neurological Exam: alert and oriented x3
Musculoskeletal Exam
Musculoskeletal Exam: full ROM and other ( no tenderness to lumbar back/flank region )
Skin Exam
Skin Exam: normal color and warm/dry
Psychiatric Exam
Psychiatric Exam: normal mood/affect
Course
Orders/Labs/Results
Orders:
Orders
06/16/24 11:11
Morphine Sulfate 4 mg IV NOW STA
06/16/24 11:12
0.9% Sodium Chloride 1000 ml [Nss] 1,000 ml IV BOLUS
Ondansetron Injectable [Zofran] 4 mg IV NOW STA
06/16/24 11:20
CT Abd/pel Without Iv Or Oral Urgent
Comment:
Reason For Exam: right flank pain
06/16/24 11:22
Complete Blood Count/With Diff Urgent
Comprehensive Metabolic Panel Urgent
06/16/24 12:03
HYDROmorphone [Dilaudid] 0.5 mg IV NOW STA
06/16/24 13:22
Urinalysis Reflex To Culture Urgent
Date Specimen was Collected: 06/16/24
Time Specimen was Collected: 13:20
Abnormal Lab Results
06/16/24 06/16/24 06/16/24
11:22 13:22 15:05
MCH 26.9 L pg
(27.0-31.0)
MCHC 31.8 L g/dL
(33.0-37.0)
Absolute Neuts (auto) 6.9 H 10^3/uL
(1.4-6.5)
Absolute Monos (auto) 0.8 H 10^3/uL
(0.1-0.6)
Lymphocytes % 17.2 L %
(20.5-51.1)
BUN 26 H mg/dl
(7-17)
Creatinine 1.3 H mg/dL
(0.6-1.0)
Glucose 208 H mg/dl
(70-99)
Urine Ketones Trace A
(Negative)
Leukocyte Esterase Rfl Trace A
(Negative)
Urine Glucose 1+ A
(Negative)
POC Glucose 125 H mg/dl
(70-99)
06/16/24 11:22
06/16/24 11:22
Vital Signs
Initial and Last Documented VS:
Initial Vital Signs
Temp Pulse Resp BP Pulse Ox
97.7 F 77 18 195/87 97
06/16/24 11:11 06/16/24 11:11 06/16/24 11:11 06/16/24 11:11 06/16/24 11:11
Last Documented Vital Signs
Temp Pulse Resp BP Pulse Ox
97.7 F 69 27 171/72 98
06/16/24 11:11 06/16/24 14:30 06/16/24 14:30 06/16/24 14:14 06/16/24 14:30
MDM/Problems Addressed
MDM/Problems Addressed:
As documented patient is a 4-year-old female that presented with right flank/back pain at 1 AM. She is on chronic pain medication oxycodone and Fram which did not relieve her symptoms. She presented uncomfortable and was given pain medication.
CAT scan however is negative for renal stone no other acute inflammatory findings. There is incidental renal cyst. Patient feeling better. She feels that the associated vomiting that she had with her symptoms was related to pain. She feels that
this may be related to her typical back pain. pain was in the lower back area as well as flank over the buttocks region. she feels that this is similar to her nerve pain in the past. Patient however feeling much better she is nontoxic she is
ambulatory [id number] to the bathroom while here in the ER and sitting up in the chair prior to discharge without any discomfort. She feels well enough to go home. Labs are baseline
*Radiology
Radiology exam reviewed: radiology read reviewed
*Pulse Oximetry
Patient hypoxic: no
*Critical Care Note
Total Time (30-74mins, 75-104mins- exclusive of procedures): Not Applicable
ED Attending Note
-
Portions of this chart may have been created with voice recognition software.� Occasional wrong word or��sound alike� substitutions may have occurred due to the inherent limitations of voice recognition software.
Discharge Plan
Departure
Patient Disposition: Home (Routine Discharge)
Date of Disposition: 06/16/24
Time of Disposition: 15:02
Patient with high blood pressure during this ER visit?: Yes
Condition: Fair
Covid-19: Not Applicable
Discharge Problem:
Low back pain
Instructions: Low Back Pain ED
Prescriptions:
No Action
albuterol sulfate 2.5 MG/3 ML solution for nebulization
2.5 mg inhalation R Q4HPRN PRN (Reason: sob)
Prolia 60 MG/ML syringe
60 mg SC [id number]
Levemir U-100 Insulin 100 unit/mL Solution
0 unit SC DIRECTED
Patient Comments:
also adjusts doses based on blood sugar- Hold for BS < 200
insulin aspart U-100 [Novolog FlexPen U-100 Insulin] 300 UNITS/3 ML insulin pen
0 sliding scale dose SC AC
aspirin 81 mg Tablet,Delayed Release (Dr/Ec)
81 mg PO DAILY
lidocaine [Aspercreme (lidocaine)] 1 PATCH adhesive patch,medicated
2 patch topical DAILY PRN (Reason: Pain)
levothyroxine 75 MCG tablet
75 mcg PO MOTUWETHFRSA
furosemide 20 MG tablet
20 mg PO DAILY PRN (Reason: swelling)
cyanocobalamin (vitamin B-12) [Vitamin B-12] 1,000 mcg Tablet
2,000 mcg PO DAILY
metoprolol succinate 50 mg tablet extended release 24 hr
50 mg PO QPM
gabapentin 300 mg Capsule
300 mg PO HS
azelastine 137 mcg (0.1 %) aerosol,spray
2 spray INTRANASAL BID
rosuvastatin 10 mg Tablet
10 mg PO QPM
Actemra ACTPen 162 mg/0.9 mL pen injector
162 mg SC Q2W
Ozempic 0.25 mg or 0.5 mg (2 mg/3 mL) pen injector
1 mg SC MO
acetaminophen [Tylenol Extra Strength] 500 MG tablet
1,000 mg PO TIDPRN PRN (Reason: mild pain)
magnesium oxide 500 MG tablet
500 mg PO PRN PRN (Reason: Constipation)
Systane Complete 0.6 % Drops
1 drp OPHTHALMIC (EYE) TID PRN (Reason: dry/itchy eyes)
cyclobenzaprine [Flexeril] 10 mg Tablet
10 mg PO PRN PRN (Reason: Spasms)
polyethylene glycol 3350 [Miralax] 17 gram Powder In Packet
17 g PO DAILY
prednisone 1 mg Tablet
2 mg PO DAILY
budesonide [Pulmicort] 0.5 mg/2 mL Suspension For Nebulization
0.5 mg INHALATION PRN PRN (Reason: SOB, Wheezes)
dicyclomine [Bentyl] 10 mg Capsule
10 mg PO PRN PRN (Reason: Stomach Cramps)
Probiotic
2 cap PO DAILY
oxycodone 5 mg tablet
5 mg PO Q6H
cholecalciferol (vitamin D3) 2,000 UNITS tablet
4,000 unit PO DAILY
albuterol sulfate 1 PUFF HFA aerosol inhaler
2 puff inhalation R Q4HPRN PRN (Reason: sob) Qty: 1 0RF
omeprazole 40 MG capsule,delayed release(DR/EC)
40 mg PO DAILY Qty: 30 0RF
Referrals:
Russ Manzo Jr., DO [Family Provider] -
Activity Restrictions/Additional Instructions:
As discussed your CAT scan showed no acute finding.
You were given a copy of your CAT scan report to review with your family doctor; there was a 1 cm right renal cyst no other acute inflammatory process. You may continue to take your pain medication as previously prescribed. Closely follow-up with
your family doctor in the next several days and return if any worsening of symptoms
Interventions
Interventions:
*Risk Screen - Suicide Last Done: 06/16/24 11:04
*General Assessment Last Done: 06/16/24 11:04
*Neglect/Abuse Screening Last Done: 06/16/24 11:04
ED- Fall Risk Assessment Last Done: 06/16/24 13:06
*ED COVID-19 Vaccine History Last Done: 06/16/24 11:04
*Nursing Disposition Last Done: 06/16/24 15:24
QL-Qmsjle-Cslxasiwxq Assessment Last Done: 06/16/24 12:05
Discharge Date and Time
Discharge Date/Time: 06/16/24 15:24
Print Language: ALGERIAN
[2024-06-16] MEDS: MORPHINE SULFATE 4 MG IV (11:15)
[2024-06-16] MEDS: NSS 1000 IV (11:15)
[2024-06-16] MEDS: ZOFRAN 4 MG IV (11:15)
[2024-06-16 11:33] LABS: % Basophils 0.9 % (0-2); % Eosinophils 4.1 % (0-6); % Immature Granulocytes 0.3 % (0-0.5); % Lymphocytes 17.2 % (20.5-51.1); % Monocytes 7.8 % (1.7-9.3); % Neutrophils 69.7 % (42.2-75.2); Absolute Basophils 0.1 10^3/uL (0-0.2); Absolute Eosinophils 0.4 10^3/uL (0-0.7); Absolute Lymphocytes 1.7 10^3/uL (1.2-3.4); Absolute Monocytes 0.8 10^3/uL (0.1-0.6); Absolute Neutrophils 6.9 10^3/uL (1.4-6.5); Mean Corp Hgb Conc. 31.8 g/dL (33.0-37.0); Mean Corpuscular Hgb 26.9 pg (27.0-31.0); Mean Corpuscular Volume 84.6 fL (81.0-99.0); Mean Platelet Volume 9.6 fL (7.4-10.4); Nucleated Red Blood Cells % 0 %; Platelet Count 244 10^3/uL (130-400); White Blood Cell Count 9.9 10^3/uL (4.8-10.8)
[2024-06-16 11:49] LABS: ALT (SGPT) 14 U/L (0-35); AST (SGOT) 22 U/L (14-36); Albumin 4.3 g/dl (3.5-5.0); Alkaline Phosphatase 72 U/L (38-126); Blood Urea Nitrogen 26 mg/dl (7-17); Calcium 9.8 mg/dl (8.4-10.2); Carbon Dioxide 28 mmol/L (22-30); Chloride 101 mmol/L (98-107); Estimated Creatinine Clearance 30 ml/min; Glucose 208 mg/dl (70-99); Potassium 3.7 mmol/L (3.5-5.1); Sodium 139 mmol/L (135-145); Total Bilirubin 0.6 mg/dl (0.2-1.3); Total Protein 6.7 g/dl (6.3-8.2)
[2024-06-16 12:00] VITALS: BP 183/74
[2024-06-16] MEDS: DILAUDID 0.5 MG IV (12:06)
[2024-06-16 13:33] LABS: Urine Albumin Trace (Neg - Trace); Urine Bilirubin Negative (Negative); Urine Character Clear (Clear); Urine Color Yellow; Urine Glucose 1+ (Negative); Urine Ketone Trace (Negative); Urine Leukocyte Trace (Negative); Urine Nitrite Negative (Negative); Urine Occult Blood Negative (Negative); Urine Urobilinogen Negative (Neg - 1+)
[2024-06-16 14:14] VITALS: BP 171/72
[2024-06-16 15:06] LABS: Glucose - Point of Care 125 mg/dl (70-99)
== END 2024-06-16 15:24 | disposition home or self-care (01) ==
LOC: EMR 10:54
PROVIDERS: Nurse Practitioner; EMERGENCY PHYSICIAN Emergency Medicine; FAMILY PHYSICIAN Family Medicine
DX: M54.50 Low back pain, unspecified (principal); G89.29 Other chronic pain; E03.9 Hypothyroidism, unspecified; E11.9 Type 2 diabetes mellitus without complications; E78.00 Pure hypercholesterolemia, unspecified; I10 Essential (primary) hypertension; Z79.891 Long term (current) use of opiate analgesic; N28.1 Cyst of kidney, acquired
CPT/HCPCS: 96374; 96375; 96361; 99284; 74176; 80053; 81003; 82962; 85025

== ENCOUNTER 2024-06-29 11:00 | Outpatient (RCR) | payer MEDICARE, OTHER, SELFPAY | END 2024-06-29 23:59 | disposition home or self-care (01) | LOC: RPT 11:00 | PROVIDERS: ATTENDING PHYSICIAN Orthopaedic Surgery Orthopaedic Surgery of the Spine; FAMILY PHYSICIAN Family Medicine | DX: M51.26 Other intervertebral disc displacement, lumbar region (principal); R26.89 Other abnormalities of gait and mobility; Z98.890 Other specified postprocedural states; Z73.6 Limitation of activities due to disability | CPT/HCPCS: 97010; 97110 ==

== ENCOUNTER 2024-07-23 10:05 | Outpatient (RCR) | payer MEDICARE, OTHER, SELFPAY | END 2024-07-23 15:17 | disposition home or self-care (01) | LOC: RPT 10:05 | PROVIDERS: ATTENDING PHYSICIAN Orthopaedic Surgery Orthopaedic Surgery of the Spine; FAMILY PHYSICIAN Family Medicine | DX: M51.26 Other intervertebral disc displacement, lumbar region (principal); R26.89 Other abnormalities of gait and mobility; Z98.890 Other specified postprocedural states; Z73.6 Limitation of activities due to disability | CPT/HCPCS: 97110 ==

== ENCOUNTER 2024-08-10 12:58 | Outpatient (RCR) | payer MEDICARE, OTHER, SELFPAY | END 2024-08-10 23:59 | disposition home or self-care (01) | LOC: RPT 12:58 | PROVIDERS: ATTENDING PHYSICIAN Family Medicine | DX: R26.81 Unsteadiness on feet (principal); R26.89 Other abnormalities of gait and mobility; Z73.6 Limitation of activities due to disability | CPT/HCPCS: 97010; 97110; 97112; 97162 ==

== ENCOUNTER → 2024-08-28 07:01 | Outpatient (REF) | payer MEDICARE, OTHER, SELFPAY | LOC: MRI 07:01 | PROVIDERS: ATTENDING PHYSICIAN Nurse Practitioner Family; FAMILY PHYSICIAN Family Medicine | DX: M54.16 Radiculopathy, lumbar region (principal) | CPT/HCPCS: 72148 ==

== ENCOUNTER 2024-09-07 14:31 | Outpatient (RCR) | payer MEDICARE, OTHER, SELFPAY | END 2024-09-07 23:59 | disposition home or self-care (01) | LOC: RPT 14:31 | PROVIDERS: ATTENDING PHYSICIAN Family Medicine | DX: R26.81 Unsteadiness on feet (principal); R26.89 Other abnormalities of gait and mobility; Z73.6 Limitation of activities due to disability | CPT/HCPCS: 97010; 97110; 97112 ==

== ENCOUNTER → 2024-09-27 10:46 | Outpatient (REF) | payer MEDICARE, OTHER, SELFPAY ==
[2024-09-27 13:33] LABS: ALT (SGPT) 26 U/L (0-35); AST (SGOT) 22 U/L (14-36); Albumin 4.1 g/dl (3.5-5.0); Alkaline Phosphatase 77 U/L (38-126); Blood Urea Nitrogen 35 mg/dl (7-17); Calcium 9.9 mg/dl (8.4-10.2); Carbon Dioxide 24 mmol/L (22-30); Chloride 103 mmol/L (98-107); Glucose 181 mg/dl (70-99); Potassium 4.8 mmol/L (3.5-5.1); Sodium 137 mmol/L (135-145); Total Bilirubin 0.9 mg/dl (0.2-1.3); Total Protein 6.2 g/dl (6.3-8.2); eGFR 37.33
[2024-09-27 13:39] LABS: C-Reactive Protein < 5.00 mg/L (0.0-10.00)
[2024-09-27 13:55] LABS: Vitamin D, 25-OH*** 51.3 ng/mL (30-80)
[2024-09-27 14:30] LABS: Glycohemoglobin (HgbA1c) 7.9 % (4.0-5.6)
[2024-09-27 15:14] LABS: Erythrocyte Sed Rate 1 mm/hour (0-20)
== END ==
LOC: REG 10:46
PROVIDERS: ATTENDING PHYSICIAN Internal Medicine Endocrinology, Diabetes & Metabolism; FAMILY PHYSICIAN Family Medicine; OTHER PHYSICIAN Internal Medicine Cardiovascular Disease; OTHER PHYSICIAN Ophthalmology; OTHER PHYSICIAN Specialist; REFERRING PHYSICIAN Internal Medicine Rheumatology
DX: E55.9 Vitamin D deficiency, unspecified (principal); E11.40 Type 2 diabetes mellitus with diabetic neuropathy, unspecified; E78.5 Hyperlipidemia, unspecified; M31.5 Giant cell arteritis with polymyalgia rheumatica; M81.0 Age-related osteoporosis without current pathological fracture; Z79.52 Long term (current) use of systemic steroids; Z79.899 Other long term (current) drug therapy
CPT/HCPCS: 36415; 80053; 82306; 83036; 85652; 86140

== ENCOUNTER 2024-10-02 13:03 | Outpatient (RCR) | payer MEDICARE, OTHER, SELFPAY | END 2024-10-02 23:59 | disposition home or self-care (01) | LOC: RPT 13:03 | PROVIDERS: ATTENDING PHYSICIAN Family Medicine | DX: R26.81 Unsteadiness on feet (principal); Z73.6 Limitation of activities due to disability; R26.89 Other abnormalities of gait and mobility | CPT/HCPCS: 97010; 97110; 97112 ==

== ENCOUNTER 2024-10-10 14:24 | Outpatient (RCR) | payer MEDICARE, OTHER, SELFPAY | END 2024-10-11 07:40 | disposition home or self-care (01) | LOC: RPT 14:24 | PROVIDERS: ATTENDING PHYSICIAN Family Medicine | DX: R26.81 Unsteadiness on feet (principal); Z73.6 Limitation of activities due to disability; R26.89 Other abnormalities of gait and mobility | CPT/HCPCS: 97110; 97112 ==

== ENCOUNTER → 2025-01-05 10:56 | Outpatient (REF) | payer MEDICARE, OTHER, SELFPAY ==
[2025-01-05 12:12] LABS: ALT (SGPT) 15 U/L (0-35); AST (SGOT) 20 U/L (14-36); Albumin 3.9 g/dl (3.5-5.0); Alkaline Phosphatase 68 U/L (38-126); Blood Urea Nitrogen 32 mg/dl (7-17); Calcium 9.2 mg/dl (8.4-10.2); Carbon Dioxide 27 mmol/L (22-30); Chloride 109 mmol/L (98-107); Glucose 169 mg/dl (70-99); Sodium 143 mmol/L (135-145); Total Bilirubin 0.7 mg/dl (0.2-1.3); eGFR 37.33
[2025-01-05 12:16] LABS: C-Reactive Protein < 5.00 mg/L (0.0-10.00)
[2025-01-05 12:27] LABS: Erythrocyte Sed Rate 11 mm/hour (0-20)
[2025-01-05 13:01] LABS: Glycohemoglobin (HgbA1c) 7.6 % (4.0-5.6)
== END ==
LOC: REG 10:56
PROVIDERS: ATTENDING PHYSICIAN Internal Medicine Rheumatology; FAMILY PHYSICIAN Family Medicine; OTHER PHYSICIAN Internal Medicine Endocrinology, Diabetes & Metabolism
DX: E11.40 Type 2 diabetes mellitus with diabetic neuropathy, unspecified (principal); E78.5 Hyperlipidemia, unspecified; M31.5 Giant cell arteritis with polymyalgia rheumatica; M81.0 Age-related osteoporosis without current pathological fracture; Z79.52 Long term (current) use of systemic steroids; Z79.899 Other long term (current) drug therapy
CPT/HCPCS: 36415; 80053; 83036; 85652; 86140

== ENCOUNTER → 2025-01-08 06:38 | Outpatient (REF) | payer MEDICARE, OTHER, SELFPAY | LOC: MRI 06:38 | PROVIDERS: ATTENDING PHYSICIAN Psychiatry & Neurology Neurology; FAMILY PHYSICIAN Family Medicine | DX: M54.14 Radiculopathy, thoracic region (principal); M54.6 Pain in thoracic spine; M54.2 Cervicalgia; M54.12 Radiculopathy, cervical region | CPT/HCPCS: 72141; 72146 ==

== ENCOUNTER → 2025-01-17 11:18 | Outpatient (REF) | payer MEDICARE, OTHER, SELFPAY | LOC: WDC 11:18 | PROVIDERS: ATTENDING PHYSICIAN Family Medicine | DX: Z13.820 Encounter for screening for osteoporosis (principal); M85.89 Other specified disorders of bone density and structure, multiple sites; Z12.39 Encounter for other screening for malignant neoplasm of breast; Z78.0 Asymptomatic menopausal state; Z12.31 Encounter for screening mammogram for malignant neoplasm of breast | CPT/HCPCS: 77063; 77067; 77080 ==

== ENCOUNTER → 2025-01-21 09:20 | Outpatient (REF) | payer MEDICARE, OTHER, SELFPAY ==
[2025-01-21 10:16] LABS: Medical Necessity Pt Refused HGBAIC
[2025-01-21 10:23] LABS: Hematocrit 41.6 % (37.0-47.0); Hemoglobin 13.1 g/dL (12.0-16.0); Mean Corp Hgb Conc. 31.5 g/dL (33.0-37.0); Mean Corpuscular Volume 93.9 fL (81.0-99.0); Nucleated Red Blood Cells % 0 %; Platelet Count 268 10^3/uL (130-400); Red Cell Dist. Width 13.7 % (11.5-14.5)
[2025-01-21 10:55] LABS: ALT (SGPT) 14 U/L (0-35); AST (SGOT) 20 U/L (14-36); Albumin 4.2 g/dl (3.5-5.0); Alkaline Phosphatase 56 U/L (38-126); Blood Urea Nitrogen 32 mg/dl (7-17); Calcium 9.4 mg/dl (8.4-10.2); Carbon Dioxide 30 mmol/L (22-30); Chloride 104 mmol/L (98-107); Glucose 152 mg/dl (70-99); HDL Cholesterol 72 mg/dl; LDL Cholesterol, Calculated 64 mg/dl; Potassium 3.9 mmol/L (3.5-5.1); Sodium 140 mmol/L (135-145); Total Protein 6.3 g/dl (6.3-8.2); Very Low Density Lipoprotein 33 mg/dl (0-30); eGFR 34.36
[2025-01-21 11:11] LABS: Vitamin D, 25-OH*** 47.0 ng/mL (30-80)
== END ==
LOC: RAD 09:20
PROVIDERS: ATTENDING PHYSICIAN Family Medicine; OTHER PHYSICIAN Internal Medicine Cardiovascular Disease
DX: M25.521 Pain in right elbow (principal); M25.561 Pain in right knee; R07.81 Pleurodynia; R60.0 Localized edema; N18.32 Chronic kidney disease, stage 3b; M31.6 Other giant cell arteritis; E11.40 Type 2 diabetes mellitus with diabetic neuropathy, unspecified; E78.2 Mixed hyperlipidemia
CPT/HCPCS: 36415; 71101; 73030; 73080; 73502; 73564; 80053; 80061; 82306; 84443; 85025

== ENCOUNTER → 2025-01-25 13:07 | Outpatient (REF) | payer MEDICARE, OTHER, SELFPAY | LOC: HWRAD 13:07 | PROVIDERS: ATTENDING PHYSICIAN Family Medicine | DX: R60.0 Localized edema (principal) | CPT/HCPCS: 71250; 93971 ==

== ENCOUNTER → 2025-02-01 09:43 | Outpatient (REF) | payer MEDICARE, OTHER, SELFPAY | LOC: WDC 09:43 | PROVIDERS: ATTENDING PHYSICIAN Family Medicine | DX: R92.8 Other abnormal and inconclusive findings on diagnostic imaging of breast (principal) | CPT/HCPCS: 76642 ==

== ENCOUNTER 2025-02-06 18:05 | Emergency (ER) | payer MEDICARE, OTHER, SELFPAY ==
[2025-02-06 18:06] VITALS: BP 178/100
[2025-02-06 18:37] LABS: ALT (SGPT) 34 U/L (0-35); AST (SGOT) 40 U/L (14-36); Albumin 4.5 g/dl (3.5-5.0); Alkaline Phosphatase 88 U/L (38-126); Blood Urea Nitrogen 29 mg/dl (7-17); Calcium 9.7 mg/dl (8.4-10.2); Carbon Dioxide 26 mmol/L (22-30); Chloride 103 mmol/L (98-107); Glucose 217 mg/dl (70-99); Hematocrit 42.2 % (37.0-47.0); Hemoglobin 13.3 g/dL (12.0-16.0); Mean Corp Hgb Conc. 31.5 g/dL (33.0-37.0); Mean Corpuscular Volume 92.5 fL (81.0-99.0); Nucleated Red Blood Cells % 0 %; Platelet Count 259 10^3/uL (130-400); Potassium 4.7 mmol/L (3.5-5.1); Red Cell Dist. Width 13.5 % (11.5-14.5); Sodium 136 mmol/L (135-145); Total Protein 6.8 g/dl (6.3-8.2); eGFR 37.33
[2025-02-06 18:41] LABS: C-Reactive Protein < 5.00 mg/L (0.0-10.00)
[2025-02-06 20:05] VITALS: BMI 32.9
[2025-02-06 20:17] VITALS: BP 157/61
--- NOTE | 2025-02-06 21:09 | ED.GENMED ---
History of Present Illness
General
Chief Complaint: Headache
Source: patient
Exam Limitations: none
Time Seen by Provider: 02/06/25 21:09
Nursing documentation reviewed up to this point in time: agreed with
History of Present Illness
History of Present Illness:
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
edema bilateral lower extremities, stage IIIb kidney disease, GERD, valvular heart disease, osteoporosis, presenting with a headache. She describes the headache as a general ache with sharp pains predominantly on the right side, beginning around
midnight last night. The headache has persisted, waxed and waned, despite the use of aspirin and acetaminophen. Mild nausea, no vomiting.
The patient saw her theatrical dresser 2 weeks ago for routine visit and while there 'I got a terrible pain in my left gnosticist' she was started on prednisone 10 mg daily which was weaned to 7.5 mg 2 days ago. Patient took a 10 mg tablet today thinking
it was her giant cell arteritis. Denies visual changes. She rates the headaches intensity as 5 to 6 on a scale of 0 to 10. The patient has a known history of neuropathy with chronic tingling in arms and legs, but reports no new numbness,
tingling, or weakness. There is no history of head injury. Pt took Tylenonl 5 p.m. with a little relief
Past History
Past History
ED Past Medical History: Arrthythmia, HTN, Hypercholesterolemia, NIDDM, Hypothyroidism and Other (Rheumatic Heart Disease, temporal arteritis, diabetes, aortic stenosis, ocular myasthenia gravis)
ED Past Surgical History: Cardiac, Gynecological (Tubal ligation) and Tonsilectomy
Social History
Tobacco: Non-smoker
Alcohol: Occasional
Drug: None
Personal:
Living: with family
Employment: Retired
Family History
Family History: Other (Reviewed and non-contributory)
Review of Systems
Review of Systems
Allergies reviewed?: Yes
All Other Systems: ROS reviewed and negative except as documented in HPI and ROS
Constitutional: Denies fever
Respiratory: Denies trouble breathing
Cardiac: Denies chest pain
ABD/GI: Reports nausea (mild); Denies abdominal pain or vomiting
Musculoskeletal: Denies neck pain
Skin: Reports no symptoms
Neurological: Reports headache; Denies dizzy, weakness or numbness
Phy Exam
Physical Exam
Physical Exam:
GENERAL: No acute distress. A&Ox3.
CONSTITUTIONAL: Afebrile.
Head: No tenderness to percussion of scalp/temporal areas, no rash
EYES: clear, conjunctivae normal
ENMT: moist mucus membranes, Pharynx nl
RESPIRATORY: Regular respirations, nonlabored, lungs clear.
CARDIOVASCULAR: Regular rate and rhythm, no murmurs, no rubs.
GI: Soft, nontender, normal BS
MUSCULOSKELETAL: Moves with ease. Well perfused.
SKIN: Warm, dry, pink
PSYCH: Normal mood and affect. Well kept, interactive and appropriate
NEUROLOGIC: Awake, alert and oriented. Cranial nerves II through XII intact. [id number] intact. No focal neurological deficits
Course
Orders/Labs/Results
Orders:
Orders
02/06/25 18:15
C-Reactive Protein Urgent
CMP [Comprehensive Metabolic Panel] Urgent
Complete Blood Count/With Diff Urgent
Erythrocyte Sed Rate Urgent
02/06/25 21:21
CT Head W/o Iv Contrast Urgent
Comment:
Reason For Exam: headache general w stabbing pains right head
02/06/25 22:21
Diphenhydramine [Benadryl] 50 mg PO NOW STA
Prochlorperazine [Compazine] 10 mg PO NOW STA
Abnormal Lab Results
02/06/25
18:15
MCHC 31.5 L g/dL
(33.0-37.0)
Abs Immat Gran (auto) 0.1 H 10^3/uL
(0-0.05)
Absolute Neuts (auto) 8.4 H 10^3/uL
(1.4-6.5)
Absolute Lymphs (auto) 1.1 L 10^3/uL
(1.2-3.4)
Neutrophils % 84.2 H %
(42.2-75.2)
Lymphocytes % 10.7 L %
(20.5-51.1)
BUN 29 H mg/dl
(7-17)
Creatinine 1.4 H mg/dL
(0.6-1.0)
Glucose 217 H mg/dl
(70-99)
AST 40 H U/L
(14-36)
02/06/25 18:15
02/06/25 18:15
Vital Signs
Initial and Last Documented VS:
Initial Vital Signs
Temp Pulse Resp BP Pulse Ox
97.9 F 77 20 178/100 96
02/06/25 18:06 02/06/25 18:06 02/06/25 18:06 02/06/25 18:06 02/06/25 18:06
Last Documented Vital Signs
Temp Pulse Resp BP Pulse Ox
97.9 F 65 13 157/61 98
02/06/25 18:06 02/06/25 20:30 02/06/25 20:30 02/06/25 20:17 02/06/25 21:13
MDM/Problems Addressed
Differential Diagnosis Includes:
1. Migraine headache
2. Tension-type headache
3. Temporal arteritis (giant cell arteritis flare)
5. Hypertensive headache
6. Subdural hematoma
7. Intracranial hemorrhage
MDM/Problems Addressed:
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
edema bilateral lower extremities, stage IIIb kidney disease, GERD, valvular heart disease, osteoporosis, presenting with a headache. She describes the headache as a general ache with sharp pains predominantly on the right side, beginning around
midnight last night. The headache has persisted, waxed and waned, despite the use of aspirin and acetaminophen. Mild nausea, no vomiting.
The patient saw her theatrical dresser 2 weeks ago for routine visit and while there 'I got a terrible pain in my left gnosticist' she was started on prednisone 10 mg daily which was weaned to 7.5 mg 2 days ago. Patient took a 10 mg tablet today thinking
it was her giant cell arteritis. Denies visual changes. She rates the headaches intensity as 5 to 6 on a scale of 0 to 10. The patient has a known history of neuropathy with chronic tingling in arms and legs, but reports no new numbness,
tingling, or weakness. There is no history of head injury. Pt took Tylenonl 5 p.m. with a little relief
Pt pleasant, conversive, NAD
No neurological deficits
- Order a CT scan of the head to rule out acute intracranial pathology.
- Administer a medication 'cocktail' for headache management, including antihistamines and antiemetics. (Pt has used Compazin and Benadryl in the past that worked)
- Monitor response to medication and reassess symptom relief post-CT scan.
10:20 PM:
Patient is much relieved that her CRP and sed rate are normal and that her head CT shows nothing acute Head CT NAD
Patient states her headache is improving, it is now a 3/10
She is comfortable taking a p.o. dose of Benadryl and Compazine and going home and sleeping.
*Pulse Oximetry
SaO2: 98
Oxygen Mode of Delivery: Room air
Patient hypoxic: not evaluated
*Critical Care Note
Total Time (30-74mins, 75-104mins- exclusive of procedures): Not Applicable
ED Attending Note
-
Portions of this chart may have been created with voice recognition software.� Occasional wrong word or��sound alike� substitutions may have occurred due to the inherent limitations of voice recognition software.
Discharge Plan
Departure
Patient Disposition: Home (Routine Discharge)
Date of Disposition: 02/06/25
Time of Disposition: 22:23
Patient with high blood pressure during this ER visit?: No
Condition: Good
Discharge Problem:
Headache
Instructions: Headache, Adult (DC)
Prescriptions:
No Action
albuterol sulfate 2.5 MG/3 ML solution for nebulization
2.5 mg inhalation R Q4HPRN PRN (Reason: sob)
Prolia 60 MG/ML syringe
60 mg SC [id number]
Levemir U-100 Insulin 100 unit/mL Solution
0 unit SC DIRECTED
Patient Comments:
also adjusts doses based on blood sugar- Hold for BS < 200
insulin aspart U-100 [Novolog FlexPen U-100 Insulin] 300 UNITS/3 ML insulin pen
0 sliding scale dose SC AC
aspirin 81 mg Tablet,Delayed Release (Dr/Ec)
81 mg PO DAILY
lidocaine [Aspercreme (lidocaine)] 1 PATCH adhesive patch,medicated
2 patch topical DAILY PRN (Reason: Pain)
levothyroxine 75 MCG tablet
75 mcg PO MOTUWETHFRSA
furosemide 20 MG tablet
20 mg PO DAILY PRN (Reason: swelling)
cyanocobalamin (vitamin B-12) [Vitamin B-12] 1,000 mcg Tablet
2,000 mcg PO DAILY
metoprolol succinate 50 mg tablet extended release 24 hr
50 mg PO QPM
gabapentin 300 mg Capsule
300 mg PO HS
azelastine 137 mcg (0.1 %) aerosol,spray
2 spray INTRANASAL BID
rosuvastatin 10 mg Tablet
10 mg PO QPM
Actemra ACTPen 162 mg/0.9 mL pen injector
162 mg SC Q2W
Ozempic 0.25 mg or 0.5 mg (2 mg/3 mL) pen injector
1 mg SC MO
acetaminophen [Tylenol Extra Strength] 500 MG tablet
1,000 mg PO TIDPRN PRN (Reason: mild pain)
magnesium oxide 500 MG tablet
500 mg PO PRN PRN (Reason: Constipation)
Systane Complete 0.6 % Drops
1 drp OPHTHALMIC (EYE) TID PRN (Reason: dry/itchy eyes)
cyclobenzaprine [Flexeril] 10 mg Tablet
10 mg PO PRN PRN (Reason: Spasms)
polyethylene glycol 3350 [Miralax] 17 gram Powder In Packet
17 g PO DAILY
prednisone 1 mg Tablet
2 mg PO DAILY
budesonide [Pulmicort] 0.5 mg/2 mL Suspension For Nebulization
0.5 mg INHALATION PRN PRN (Reason: SOB, Wheezes)
dicyclomine [Bentyl] 10 mg Capsule
10 mg PO PRN PRN (Reason: Stomach Cramps)
Probiotic
2 cap PO DAILY
oxycodone 5 mg tablet
5 mg PO Q6H
cholecalciferol (vitamin D3) 2,000 UNITS tablet
4,000 unit PO DAILY
albuterol sulfate 1 PUFF HFA aerosol inhaler
2 puff inhalation R Q4HPRN PRN (Reason: sob) Qty: 1 0RF
omeprazole 40 MG capsule,delayed release(DR/EC)
40 mg PO DAILY Qty: 30 0RF
Referrals:
Russ Manzo Jr., DO [Family Provider, Internal Medicine] - As needed
UNKNOWN - PT DOES,NOT KNOW [Unknown Provider]
Activity Restrictions/Additional Instructions:
As we discussed, your head CT shows nothing worrisome
Your lab work shows nothing worrisome, normal CRP and sed rate.
If the Benadryl and Compazine help, and since you have Compazine at home, get some Benadryl and take 25 to 50 mg of Benadryl along with 5 mg of Compazine as needed for headache.
Return here immediately for worsening headache, headache associated with vomiting, confusion or fever or feeling sicker in any way
Interventions
Interventions:
*Risk Screen - Suicide Last Done: 02/06/25 18:06
*General Assessment Last Done: 02/06/25 18:06
*Neglect/Abuse Screening Last Done: 02/06/25 20:05
*ED- Fall Risk Assessment Last Done: 02/06/25 20:05
*ED COVID-19 Vaccine History Last Done: 02/06/25 20:05
*Nursing Disposition Last Done: 02/06/25 22:40
ED- Neurological Assessment Last Done: 02/06/25 20:05
Discharge Date and Time
Discharge Date/Time: 02/06/25 22:41
Print Language: INDONESIAN
[2025-02-06] MEDS: BENADRYL 50 MG PO (22:28)
[2025-02-06] MEDS: COMPAZINE 10 MG PO (22:28)
== END 2025-02-06 22:41 | disposition home or self-care (01) ==
LOC: EMR 18:05
PROVIDERS: Emergency Medicine; EMERGENCY PHYSICIAN Emergency Medicine; FAMILY PHYSICIAN Family Medicine
DX: R51.9 Headache, unspecified (principal); E03.9 Hypothyroidism, unspecified; E11.9 Type 2 diabetes mellitus without complications; E78.00 Pure hypercholesterolemia, unspecified; I11.0 Hypertensive heart disease with heart failure; I50.9 Heart failure, unspecified; I48.91 Unspecified atrial fibrillation; Z79.4 Long term (current) use of insulin; Z95.2 Presence of prosthetic heart valve
CPT/HCPCS: 99284; 70450; 80053; 85025; 85652; 86140

== ENCOUNTER 2025-03-08 14:04 | Outpatient (RCR) | payer MEDICARE, OTHER, SELFPAY | END 2025-03-08 23:59 | disposition home or self-care (01) | LOC: RPT 14:04 | PROVIDERS: ATTENDING PHYSICIAN Psychiatry & Neurology Neurology; FAMILY PHYSICIAN Family Medicine | DX: M47.812 Spondylosis without myelopathy or radiculopathy, cervical region (principal); M47.814 Spondylosis without myelopathy or radiculopathy, thoracic region; Z73.6 Limitation of activities due to disability | CPT/HCPCS: 97010; 97110; 97140; 97162 ==

== ENCOUNTER 2025-03-26 12:55 | Outpatient (RCR) | payer MEDICARE, OTHER, SELFPAY | END 2025-03-26 23:59 | disposition home or self-care (01) | LOC: RPT 12:55 | PROVIDERS: ATTENDING PHYSICIAN Psychiatry & Neurology Neurology; FAMILY PHYSICIAN Family Medicine | DX: M47.812 Spondylosis without myelopathy or radiculopathy, cervical region (principal); M47.814 Spondylosis without myelopathy or radiculopathy, thoracic region; Z73.6 Limitation of activities due to disability | CPT/HCPCS: 97010; 97110; 97140 ==

== ENCOUNTER → 2025-04-09 09:51 | Outpatient (REF) | payer MEDICARE, OTHER, SELFPAY ==
[2025-04-09 11:12] LABS: C-Reactive Protein < 5.00 mg/L (0.0-10.00)
[2025-04-09 11:16] LABS: Blood Urea Nitrogen 29 mg/dl (7-17); Calcium 9.3 mg/dl (8.4-10.2); Carbon Dioxide 26 mmol/L (22-30); Chloride 108 mmol/L (98-107); Glucose 165 mg/dl (70-99); Potassium 3.8 mmol/L (3.5-5.1); Sodium 140 mmol/L (135-145); eGFR 31.61
[2025-04-09 11:28] LABS: Vitamin D, 25-OH*** 46.1 ng/mL (30-80)
== END ==
LOC: REG 09:51
PROVIDERS: ATTENDING PHYSICIAN Specialist; FAMILY PHYSICIAN Family Medicine; REFERRING PHYSICIAN Internal Medicine Rheumatology
DX: E55.9 Vitamin D deficiency, unspecified (principal); E78.5 Hyperlipidemia, unspecified; M31.5 Giant cell arteritis with polymyalgia rheumatica; M81.0 Age-related osteoporosis without current pathological fracture; Z79.52 Long term (current) use of systemic steroids; Z79.899 Other long term (current) drug therapy; E78.2 Mixed hyperlipidemia; E83.52 Hypercalcemia; I10 Essential (primary) hypertension; E34.9 Endocrine disorder, unspecified
CPT/HCPCS: 36415; 80048; 82306; 83880; 85652; 86140

== ENCOUNTER → 2025-05-08 10:20 | Outpatient (REF) | payer MEDICARE, OTHER, SELFPAY ==
[2025-05-08 11:33] LABS: Urine Character Clear (Clear)
[2025-05-08 11:44] LABS: Hematocrit 44.5 % (37.0-47.0); Hemoglobin 13.9 g/dL (12.0-16.0)
[2025-05-08 11:52] LABS: Urine Red Blood Cell 0-2 /HPF (0-2); Urine White Cell 0-2 /HPF (0-5)
[2025-05-08 12:20] LABS: ALT (SGPT) 16 U/L (0-35); AST (SGOT) 22 U/L (14-36); Albumin 4.2 g/dl (3.5-5.0); Alkaline Phosphatase 71 U/L (38-126); Blood Urea Nitrogen 23 mg/dl (7-17); Calcium 9.3 mg/dl (8.4-10.2); Carbon Dioxide 30 mmol/L (22-30); Chloride 101 mmol/L (98-107); Glucose 158 mg/dl (70-99); HDL Cholesterol 77 mg/dl; LDL Cholesterol, Calculated 65 mg/dl; Potassium 3.9 mmol/L (3.5-5.1); Sodium 139 mmol/L (135-145); Total Protein 6.4 g/dl (6.3-8.2); Very Low Density Lipoprotein 31 mg/dl (0-30); eGFR 34.15
[2025-05-08 12:50] LABS: TSH 1.72 uIU/ml (0.47-4.68)
[2025-05-08 14:00] LABS: Glycohemoglobin (HgbA1c) 8.2 % (4.0-5.9)
== END ==
LOC: REG 10:20
PROVIDERS: ATTENDING PHYSICIAN Internal Medicine Endocrinology, Diabetes & Metabolism; FAMILY PHYSICIAN Family Medicine; OTHER PHYSICIAN Internal Medicine Cardiovascular Disease; OTHER PHYSICIAN Ophthalmology; OTHER PHYSICIAN Specialist
DX: E11.40 Type 2 diabetes mellitus with diabetic neuropathy, unspecified (principal); E06.3 Autoimmune thyroiditis; N18.32 Chronic kidney disease, stage 3b; I10 Essential (primary) hypertension; E83.52 Hypercalcemia; E53.8 Deficiency of other specified B group vitamins; E34.9 Endocrine disorder, unspecified; D50.9 Iron deficiency anemia, unspecified
CPT/HCPCS: 36415; 80053; 80061; 81003; 81015; 82570; 83036; 83970; 84100; 84156; 84443; 85014; 85018

== ENCOUNTER 2025-05-08 12:31 | Outpatient (RCR) | payer MEDICARE, OTHER, SELFPAY | END 2025-05-09 06:43 | disposition home or self-care (01) | LOC: RPT 12:31 | PROVIDERS: ATTENDING PHYSICIAN Psychiatry & Neurology Neurology; FAMILY PHYSICIAN Family Medicine | DX: M47.812 Spondylosis without myelopathy or radiculopathy, cervical region (principal); M47.814 Spondylosis without myelopathy or radiculopathy, thoracic region; Z73.6 Limitation of activities due to disability; M62.838 Other muscle spasm | CPT/HCPCS: 97010; 97110; 97140 ==

== ENCOUNTER 2025-06-19 09:29 | Outpatient (RCR) | payer MEDICARE, OTHER, SELFPAY | END 2025-07-09 23:59 | disposition home or self-care (01) | LOC: RPT 09:29 | PROVIDERS: ATTENDING PHYSICIAN Orthopaedic Surgery; FAMILY PHYSICIAN Family Medicine | DX: M76.892 Other specified enthesopathies of left lower limb, excluding foot (principal); Z73.6 Limitation of activities due to disability; M25.552 Pain in left hip; R26.89 Other abnormalities of gait and mobility; M62.81 Muscle weakness (generalized) | CPT/HCPCS: 97010; 97110; 97162 ==